=== PATIENT | male | born 1950 | race Caucasian/White ===

== ENCOUNTER 2017-03-26 19:16 | Inpatient (IN) | payer MEDICARE ==
[2017-03-26] MEDS ORDERED: Ondansetron INJ* 2 MG/ML VIAL IV ONE (20:23)
[2017-03-26] MEDS ORDERED: NS 0.9% 1000 ML* 1,000 ML IV ONE (20:24)
[2017-03-26] MEDS ORDERED: Morphine INJ* 2 MG/ML 1 ML SYRINGE IV ONE (20:24)
--- NOTE | 2017-03-26 20:27 | ED ---
Sami Kwon Billy, scribed for Marla Escobar MD on 03/26/17 at 2019 . Lower Extremity - HPI Summary HPI Summary: Patient is a 66 year-old male coming to [facility] with his niece for evaluation of right knee pain after a fall from the toilet today. He states that at 1300 today , the toilet broke off from the wall. Pt was unable to get up off the floor. Pt eventiually crawled to another room and called his niece at 5pm for help. They were unable to get him up, so called 911. He denies any head injury, chest pain , abdominal pain, or N/V/D. He does feel very tired here in the ED and is hungry. Pt denies striking head. no LOC. Denies hip pain. Pt lives alone and walks with a walker - pt with chronic b/l LE edema. 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 No anticoagulants. The patient takes his medications as prescribed. Last tetanus booster unknown. All medications were reviewed this visit. - History of Current Complaint Chief Complaint: EDExtremityLower Stated Complaint: RIGHT KNEE PAIN Time Seen by Provider: 03/26/17 20:08 Hx Obtained From: Patient Mechanism Of Injury: Fall From Height Of: - toilet Onset of Pain: Immediate, Hours Severity Initially: Moderate Severity Currently: Moderate Pain Intensity: 6 Pain Scale Used: 0-10 Numeric Timing: Constant Location: Is Discrete @ - right knee Character Of Pain: Stiffness Associated Signs And Symptoms: Positive: Bruising, Weakness. Negative: Syncope , Abdominal Pain Aggravating Factor(s): Movement, Weight Bearing Able to Bear Weight: No - Allergies/Home Medications Allergies/Adverse Reactions: Allergies Allergy/AdvReac Type Severity Reaction Status Date / Time No Known Allergies Allergy Verified 03/26/17 19:40 Home Medications: Home Medications Chlorthalidone TAB* [Hygroton TAB*] 25 mg PO DAILY 03/26/17 [History Confirmed 03/26/17] Dabigatran CAP(NF) [Pradaxa CAP(NF)] 150 mg PO BID 03/26/17 [History Confirmed 03/26/17] PMH/Surg Hx/FS Hx/Imm Hx Previously Healthy: No Endocrine/Hematology History: Denies: Hx Anticoagulant Therapy Cardiovascular History: Reports: Hx Atrial Fibrillation, Hx Hypertension - NOTED ON THIS VISIT, PT DENIES HX, Hx Valvular Heart Disease - mild mitral insufficiency, dilated (right) atrium trace tricuspid insuffici Denies: Hx Pacemaker/ICD Respiratory History: Reports: Other Respiratory Problems/Disorders - smoker Musculoskeletal History: Reports: Hx Back Problems - 1981 spinal cord injury ( [place]) Denies: Hx Rheumatoid Arthritis, Hx Osteoporosis Sensory History: Reports: Hx Hearing Problem - [place] Denies: Hx Hearing Aid Neurological History: Reports: Hx Spinal Cord Injury - "PT STATES "FROM LIFTING ", Other Neuro Impairments/Disorders - S Psychiatric History: Denies: Hx Panic Disorder - Surgical History Surgery Procedure, Year, and Place: CERVICAL FUSION IN THE Hx Anesthesia Reactions: No Infectious Disease History: No Infectious Disease History: Denies: Traveled Outside the [place] in Last 30 Days - Family History Known Family History: Positive: Hypertension - Social History Occupation: Unemployed Lives: Alone Alcohol Use: None Substance Use Type: Reports: None Smoking Status (MU): Current Every Day Smoker - 1 PPD Review of Systems Positive: Fatigue Eyes: Negative ENT: Negative Cardiovascular: Negative Negative: Chest Pain Respiratory: Negative Gastrointestinal: Negative Negative: Abdominal Pain, Vomiting, Diarrhea, Nausea Genitourinary: Negative Positive: Arthralgia Skin: Negative Neurological: Negative Psychological: Normal All Other Systems Reviewed And Are Negative: Yes Physical Exam Triage Information Reviewed: Yes Vital Signs On Initial Exam: Initial Vitals Temp Pulse Resp BP Pulse Ox 97.3 F 84 18 74/58 97 03/26/17 19:45 03/26/17 19:45 03/26/17 19:45 03/26/17 19:45 03/26/17 19:45 Vital Signs Reviewed: Yes Appearance: Positive: Well-Nourished, Pain Distress - with movement of right knee Skin: Positive: Other - Pt with ecchymosis left posterior shoulder, scapula; pt with ecchymosis left lower abd/prox hip, Pt with venous stasis changes bl LE; pt with multiple abrasions b.l hands, feet - no edema, erythema, ecchymosis right knee Head/Face: Positive: Normal Head/Face Inspection Eyes: Positive: Normal, EOMI, MANNY ENT: Positive: Pharynx normal, TMs normal Dental: Positive: Gross Decay/Caries @ Neck: Positive: Supple, Nontender, No Lymphadenopathy Respiratory/Lung Sounds: Positive: Clear to Auscultation, Breath Sounds Present - sounds distant, irregular, no murmur 2+ edema b/l LE to knees venous stasis changes b/l LE Cardiovascular: Positive: IRR, Leg Edema Left, Leg Edema Right Abdomen Description: Positive: Nontender, No Organomegaly, Soft Bowel Sounds: Positive: Present Musculoskeletal: Positive: Other - + SLE b/l with pain in right knee + passive SLE, flex/ext with discomfort right lateral knee + externally rotate hip with pain lateral aspect Neurological: Positive: Normal, Alert, Oriented to Person Place, Time Psychiatric: Positive: Normal AVPU Assessment: Alert - Stephen Coma Scale Best Eye Response: 4 - Spontaneous Best Motor Response: 6 - Obeys Commands Best Verbal Response: 5 - Oriented Diagnostics - Vital Signs Vital Signs Temp Pulse Resp BP Pulse Ox 03/26/17 19:45 97.3 F 84 18 74/58 97 - Laboratory Result Diagrams: 03/27/17 05:08 03/27/17 05:08 Lab Statement: Any lab studies that have been ordered have been reviewed, and results considered in the medical decision making process. - Radiology Knee XR Radiology Interpretation Completed By: Radiologist - 1. OSTEOPENIA. 2. OSTEOARTHRITIS. 3. NO ACUTE OSSEOUS INJURY. THE DEGREE OF OSTEOPENIA MAY MAKE A NONDISPLACED FRACTURE RADIOGRAPHICALLY OCCULT. IF SYMPTOMS PERSIST, RECOMMEND REPEAT IMAGING. Hip/Pelvis XR Radiology Interpretation Completed By: Radiologist - 1. OSTEOPENIA. 2. ADVANCED OSTEOARTHRITIS. 3. NO RADIOGRAPHIC EVIDENCE FOR HIP FRACTURE. X- RAYS MAY BE NEGATIVE WITH NONDISPLACED HIP FRACTURE, IF THERE IS PERSISTENT CLINICAL CONCERN, RECOMMEND CONSIDERATION OF MRI. IN THE SETTING OF CONTRAINDICATION TO MRI OR LIMITATION IN EMERGENT ACCESS TO MRI, CT WOULD BE SUGGESTED. Femur XR Radiology Interpretation Completed By: Radiologist - 1. OSTEOPENIA. 2. ADVANCED OSTEOARTHRITIS OF THE RIGHT HIP. OSTEOARTHRITIS OF THE RIGHT KNEE. 3. NO ACUTE OSSEOUS INJURY. THE DEGREE OF OSTEOPENIA MAY MAKE A NONDISPLACED FRACTURE RADIOGRAPHICALLY OCCULT. IF SYMPTOMS PERSIST, RECOMMEND REPEAT IMAGING. CXR Radiology Interpretation Completed By: Radiologist - CARDIOMEGALY - EKG 2123 EKG Interpretation: afib 88 bpm, T-wave flattening, no acute changes Re-Evaluation - Re-Evaluation First Eval Re-Evaluation Time: 21:31 Change: Unchanged Comment: Labs and imaging reviewed with the patient. elevated trop. Pt states "not allowed to take ASA" unclear why. Pt reports pain improved with Morphine Second Eval Re-Evaluation Time: 21:50 Comment: Plan for admission reviewed with the patient. He is agreeable. Lower Extremity Course/Dx - Course Assessment/Plan: Pt presents by EMS s/p falling to floor when toilet broke at 1pm. Pt on floor x 5 hours. Pt c/opain in knee only. Pt with ecchymosis to left shoulder and right knee Pt with venous stasis changes and multiple abrasions. Pt unsure last tdap. Will check labs, imaging, ekg. IVF. analgesia. diff: fx , contusion, sprain, rhabdo, cellulitis, dehydration. anticipate will require admission - Diagnoses Provider Diagnoses: Rhabdomyolysis, Elevated troponin, Leukocytosis - Physician Notifications Discussed Care of Patient With: Dr. Mccabe (hospitalist) at 2140: accepts admission. Instructed by Provider To: Admit As Inpatient Discharge - Discharge Plan Condition: Stable Disposition: ADMITTED TO [facility] documentation as recorded by the Sami alegria Billy accurately reflects the service I personally performed and the decisions made by me, Marla Escobar MD.
[2017-03-26 20:37] LABS: Hematocrit 49 % (42-52); Hemoglobin 15.6 g/dl (14.0-18.0); Mean Corpuscular HGB Conc 32 g/dl (31-36); Mean Corpuscular Hemoglobin 28 pg (27-31); Mean Corpuscular Volume 87 fL (80-94); Mean Platelet Volume 9 um3 (7.4-10.4); Red Blood Count 5.61 10^6/ul (4.0-5.4); Red Cell Distribution Width 15 % (10.5-15); White Blood Count 16.8 10^3/ul (3.5-10.8)
[2017-03-26 20:51] LABS: Albumin 3.7 g/dL (3.2-5.2); BUN/Creatinine Ratio 18.3 (8-20); Calcium 9.6 mg/dL (8.6-10.3); EGFR African American 52.8 (>60); EGFR Non-African American 41.1 (>60); Globulin 3.6 g/dL (2-4); Magnesium 1.9 mg/dL (1.9-2.7); Total Bilirubin 0.8 mg/dL (0.2-1.0); Total Protein 7.3 g/dL (6.4-8.9)
[2017-03-26 20:55] LABS: Troponin I 1.17 ng/mL (<0.04)
--- NOTE | 2017-03-26 21:18 | RAD ---
HISTORY: Fall, pain COMPARISONS: October 08, 2012 VIEWS: 2: Frontal and lateral views of the chest. FINDINGS: CARDIOMEDIASTINAL SILHOUETTE: The cardiac silhouette is enlarged. The cardiomediastinal silhouette is otherwise normal. JANES: The janes are normal. PLEURA: The costophrenic angles are sharp. No pleural abnormalities are noted. LUNG PARENCHYMA: The lungs are clear. ABDOMEN: The upper abdomen is clear. There is no subphrenic gas. BONES AND SOFT TISSUES: No bone or soft tissue abnormalities are noted. OTHER: None. IMPRESSION: CARDIOMEGALY
--- NOTE | 2017-03-26 21:19 | RAD ---
HISTORY: Fall, pain, right knee pain. COMPARISONS: None VIEWS: 5, Frontal and lateral views of the right femur FINDINGS: BONE DENSITY: There is diffuse osteopenia. BONES: There is no displaced fracture. JOINTS: There is advanced osteoarthritis of the right hip. There is mild osteoarthritis of the right knee ALIGNMENT: There is no dislocation. SOFT TISSUES: Unremarkable. OTHER FINDINGS: None. IMPRESSION: 1. OSTEOPENIA. 2. ADVANCED OSTEOARTHRITIS OF THE RIGHT HIP. OSTEOARTHRITIS OF THE RIGHT KNEE. 3. NO ACUTE OSSEOUS INJURY. THE DEGREE OF OSTEOPENIA MAY MAKE A NONDISPLACED FRACTURE RADIOGRAPHICALLY OCCULT. IF SYMPTOMS PERSIST, RECOMMEND REPEAT IMAGING.
--- NOTE | 2017-03-26 21:21 | RAD ---
HISTORY: Right knee pain, fall COMPARISONS: None VIEWS: 4, Frontal view of the pelvis with frontal and frog-leg views of the right hip FINDINGS: BONE DENSITY: There is diffuse osteopenia. BONES: There is no displaced fracture. JOINTS: There is advanced osteoarthritis of the right hip with apparent ankylosis across the joint space. There is advanced osteoarthritis of the left hip. ALIGNMENT: There is no dislocation. SOFT TISSUES: Unremarkable. OTHER FINDINGS: Degenerative changes are noted of the spine IMPRESSION: 1. OSTEOPENIA. 2. ADVANCED OSTEOARTHRITIS. 3. NO RADIOGRAPHIC EVIDENCE FOR HIP FRACTURE. X-RAYS MAY BE NEGATIVE WITH NONDISPLACED HIP FRACTURE, IF THERE IS PERSISTENT CLINICAL CONCERN, RECOMMEND CONSIDERATION OF MRI. IN THE SETTING OF CONTRAINDICATION TO MRI OR LIMITATION IN EMERGENT ACCESS TO MRI, CT WOULD BE SUGGESTED.
--- NOTE | 2017-03-26 21:21 | RAD ---
HISTORY: Fall, right knee pain COMPARISONS: September 10, 2012 VIEWS: 3, Frontal, lateral, and oblique views of the right knee FINDINGS: BONE DENSITY: There is diffuse osteopenia. BONES: There is no displaced fracture. JOINTS: There is moderate osteoarthritis of the right knee. There is no suprapatellar joint effusion or lipohemarthrosis. ALIGNMENT: There is no dislocation. SOFT TISSUES: Unremarkable. OTHER FINDINGS: None. IMPRESSION: 1. OSTEOPENIA. 2. OSTEOARTHRITIS. 3. NO ACUTE OSSEOUS INJURY. THE DEGREE OF OSTEOPENIA MAY MAKE A NONDISPLACED FRACTURE RADIOGRAPHICALLY OCCULT. IF SYMPTOMS PERSIST, RECOMMEND REPEAT IMAGING.
[2017-03-26] MEDS ORDERED: Senna TAB PO PRN (22:09)
[2017-03-26] MEDS ORDERED: Magnesium Hydroxide LIQ* 30 ML UDC PO PRN (22:09)
[2017-03-26] MEDS ORDERED: Al Hydrox/Mg Hydrox/Simet LIQ* 30 ML UDC PO PRN (22:09)
[2017-03-26] MEDS ORDERED: Docusate CAP* 100 MG PO PRN (22:09)
[2017-03-26] MEDS ORDERED: Ondansetron INJ* 2 MG/ML VIAL IV PRN (22:09)
[2017-03-26] MEDS ORDERED: Aspirin TAB* 325 MG PO ONE ×2 (22:19→22:20)
[2017-03-26] MEDS ORDERED: Mouth Piece, Nicotine* 1 EACH CARTRIDGE INH PRN (22:40)
[2017-03-26] MEDS ORDERED: Nicotine Inhaler* 10 MG AMP INH PRN (22:40)
[2017-03-26] MEDS: CMCS Dabigatran CAP(NF) 150 MG CAP PO SCH (23:56)
--- NOTE | 2017-03-27 01:23 | HP ---
HISTORY AND PHYSICAL: DATE OF ADMISSION: 03/26/17 TIME OF EVALUATION: 2199. PRIMARY CARE PHYSICIAN: Ino Loomis MD CHIEF COMPLAINT: Fall with right knee pain. HISTORY OF PRESENT ILLNESS: This is a 66-year-old male with past medical history of congestive heart failure with reduced EF, atrial fibrillation, morbid obesity with chronic venous stasis and wounds, who presents to the emergency room after falling and inability to ambulate. The patient states around noon, his commode broke and he fell and whole toilet came off the wall. He was unable to get up for about 5 hours. He did climb to the living room, was able to call his niece, then called the EMS, the EMS arrived. He refused to go to the hospital. They did put him up on the couch when the niece showed up. She tried to get him up and walk him, he could not ambulate due to significant right knee pain and she called EMS to be brought back here. The patient states he was in his usual state of health. He denies any chest pain or shortness of breath. He is normally independent of his ADL. He ambulates with a walker. He denies any loss of consciousness or head injury. He has not been declining in his health. He does see his primary care physician once a year, in the summer, Dr. Loomis, for refills. 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 He was getting evaluated for obstructive sleep apnea, but it is unclear what happened with getting full evaluation for this. The patient states that he has been gaining weight. He only sleeps with 1 pillow at night. Denies any orthopnea. According to him and his niece, his legs look the same as they have. There are some new abrasions, otherwise, they are at their baseline. Otherwise, remaining review of systems is negative. In the emergency room, the patient had labs, imaging, was given morphine 2 mg, Zofran, and a liter of normal saline, was referred to the hospitalist service for further evaluation. PAST MEDICAL HISTORY: 1. History of atrial fibrillation 2. Hypertension. 3. Chronic wound with chronic venous stasis. 4. Osteoarthritis. 5. Congestive heart failure with reduced EF 25% to 30% with LV clot, this was back in 2011. 6. Obstructive sleep apnea, not on any management for this. 7. Admission in 2011 for CVA. 8. Morbid obesity. MEDICATIONS: 1. Chlorthalidone 12.5 mg p.o. daily. 2. Pradaxa 150 mg p.o. b.i.d. 3. Lisinopril 20 mg daily. 4. Coreg 6.25 mg daily. 5. Tylenol as needed. ALLERGIES: No known drug allergies. FAMILY HISTORY: Reviewed and noncontributory. SOCIAL HISTORY: The patient lives alone. He ambulates with a walker. He is still smoking a pack per day for the past 40 years. No alcohol use. He is unemployed, on disability. He does not drive. His niece, Dafne Ruffin, cell phone #, is his healthcare proxy. His code status is full code. REVIEW OF SYSTEMS: As mentioned in the HPI. PHYSICAL EXAMINATION GENERAL: Morbidly obese, no acute distress, with his niece at the bedside. VITAL SIGNS: Temp 97.3, pulse rate 95, respiratory rate 18, oxygen saturation 97 % on room air, blood pressure 135/90. HEENT: Pupils are equal and reactive. Head: Normocephalic. Oropharynx: Mucous membranes are dry. NECK: Supple. No lymphadenopathy. RESPIRATORY: Diminished breath sounds, bibasilar crackles. No increased work of breathing. CARDIAC: Irregularly irregular rate and rhythm. Soft systolic murmur heard throughout. ABDOMEN: Morbidly obese. EXTREMITIES: The patient with excoriated lesions on his lower extremities with chronic hemosiderin venous stasis with hyperpigmented, thickened skin with distant pulses. No areas of purulent drainage or significant wound findings for concern of secondary infection. NEUROLOGIC: He is alert and oriented x3. No focal neurologic deficits. MUSCULOSKELETAL: The patient with pain with range of motion of his right knee. No bilateral hip pain. DIAGNOSTIC STUDIES/LAB DATA: White count , hemoglobin 15.6, hematocrit 49 , platelets 300. INR is 1.20. Sodium is 127, potassium 5, chloride 95, bicarb 24, BUN 31, creatinine 1.69, glucose 103. Total CK is 631. Troponin 1.17. BNP 573. Radiographic data: EKG shows atrial fibrillation with no significant ST changes. Knee x-ray: Shows osteopenia, osteoarthritis, no acute osseous injury. The degree of osteopenia may make it a nondisplaced fracture; radiographically, occult. If symptoms persist, recommend repeat imaging. Hip and pelvis x-ray: Osteopenia, advanced arthritis, no evidence for hip x-ray , as x-ray may be negative with nondisplaced hip fracture. If there is persistent clinical concern, recommend consideration of an MRI in the setting of contraindication to MRI. Femur x-ray: Osteopenia, advanced osteoarthritis of the right hip, has osteoarthritis of the right knee, no acute osseous injury. Chest x-ray: Cardiomegaly. ASSESSMENT AND PLAN: This is a 66-year-old male with past medical history of atrial fibrillation, congestive heart failure with chronic lower extremity venous stasis, presents to the emergency room after having a fall with right knee pain, inability to ambulate, noted to have acute kidney injury with an elevated troponin. 1. Fall. Assessment: Appears to be mechanical fall due to the patient's toilet breaking. He does have a lot of right knee pain. I will go ahead and order a CT of his knee to look for an occult fracture at this time before PT evaluates, as he does live alone and is independent of his ADLs and does ambulate with a walker. 2. Acute kidney injury. Assessment: As a result of this fall, it could be mild rhabdomyolysis contributing to his acute kidney injury, it is unclear if this has progressed since his labs over a year ago. I will hold his lisinopril and chlorthalidone for now and repeat his labs in the morning in addition to his CK. 3. Elevated troponin. Assessment: The patient is completely asymptomatic, has been otherwise fine. I suspect this is in the setting of a demand ischemia from being on the floor for several hours with his rhabdo and his acute kidney injury, although there is concern for lack of followup for this patient. I will give him a full-dose aspirin now. Continue on his Pradaxa and baby aspirin and order an echo, keep him n.p.o., and trend his troponins, get a lipid panel as well and would recommend Cardiology evaluating him again. 4. Leukocytosis. Assessment: There is no clear source for an infection. He has abrasions on his lower extremities, but no secondary infection visualized on my exam. It could be acute phase reactant, I would monitor it, I will get a urinalysis as there is not one at this time. Follow up on that as well, but hold off on any antibiotics at this time. 5. Chronic medical problems. 6. Tobacco use: Start him on nicotine inhaler. 7. Cardiac history with a history of congestive heart failure and atrial fibrillation. I will resume his Coreg and Pradaxa as mentioned. We will hold his lisinopril and chlorthalidone and place him on a low-salt diet, daily weights, and monitor his I's and O's. 8. DVT prophylaxis. The patient scores high risk. He is on Pradaxa. 9. Code status. Full code. 10. FEN: Place him on a heart-healthy diet, low-salt diet, n.p.o. after midnight in case his troponins continue to go up and he needs further evaluation for this at this time. PATIENT TIME: Greater than 90 minutes was spent doing the history and physical , more than half the time spent in direct patient contact. CC: Ino Loomis MD* [id number]/CPS #: [id number] MONI
[2017-03-27 05:43] LABS: Hematocrit 44 % (42-52); Hemoglobin 14.1 g/dl (14.0-18.0); Mean Corpuscular HGB Conc 32 g/dl (31-36); Mean Corpuscular Hemoglobin 28 pg (27-31); Mean Corpuscular Volume 88 fL (80-94); Mean Platelet Volume 9 um3 (7.4-10.4); Red Blood Count 4.99 10^6/ul (4.0-5.4); Red Cell Distribution Width 15 % (10.5-15); White Blood Count 13.2 10^3/ul (3.5-10.8)
[2017-03-27 05:48] LABS: Urine Bilirubin Negative (Negative); Urine Glucose Negative (Negative); Urine Nitrite Negative (Negative)
[2017-03-27 05:57] LABS: BUN/Creatinine Ratio 23.4 (8-20); EGFR African American 67.3 (>60); EGFR Non-African American 52.3 (>60); HDL Cholesterol 29.2 mg/dL; Potassium 3.8 mmol/L (3.5-5.0)
[2017-03-27 06:14] LABS: Troponin I 1.19 ng/mL (<0.04)
[2017-03-27] MEDS ORDERED: NS 0.9% 1000 ML* 1,000 ML IV SCH (07:00)
[2017-03-27] MEDS: Aspirin EC Low Dose* 81 MG TAB.EC PO SCH (07:35)
[2017-03-27] MEDS: CMCS Dabigatran CAP(NF) 150 MG CAP PO SCH ×2 (07:35→21:02)
--- NOTE | 2017-03-27 07:52 | RAD ---
INDICATION: Fall. Knee pain COMPARISON: Right knee March 26, 2017 TECHNIQUE: Source images were acquired in axial plane with coronal and sagittal reconstructions. FINDINGS: The bony structures are osteopenic. There is trabecular impaction involving the posterior aspect lateral tibial plateau. This is age indeterminant. There are no additional apparent focal bony findings. The joint spaces are preserved. There is no joint effusion. There is muscle wasting. IMPRESSION: TRABECULAR IMPACTION POSTERIOR ASPECT LATERAL TIBIAL PLATEAU. THE ABSENCE OF A JOINT EFFUSION SUGGESTED THIS MAY BE CHRONIC.
[2017-03-27] MEDS ORDERED: NS 0.9% 1000 ML* 1,000 ML IV ONE ×2 (08:03→11:03)
[2017-03-27] MEDS: Acetaminophen TAB* 325 MG PO PRN ×3 (08:48→21:05)
[2017-03-27] MEDS ORDERED: Carvedilol TAB* 6.25 MG PO SCH (09:00)
--- NOTE | 2017-03-27 11:16 | PN ---
Subjective Date of Service: 03/27/17 Interval History: Pt examined today at the bedside. States that he is having right knee pain. Denies chest pain and sob. States that his commode gave out last night and he was stuck. Denies abdominal pain. Denies nausea or vomiting. ROS-denies fever, denies chills, denies chest pain, denies nausea, denies vomiting, denies lightheadedness, denies loc, denies abdominal pain, denies sob , review of 11 systems completed all others negative, Objective Active Medications: Acetaminophen (Tylenol Tab*) 650 mg PO Q4H PRN PRN Reason: FEVER/PAIN Last Admin: 03/27/17 08:48 Dose: 650 mg Al Hydrox/Mg Hydrox/Simethicone (Maalox Plus*) 30 ml PO Q6H PRN PRN Reason: INDIGESTION Aspirin (Aspirin Ec Low Dose*) 81 mg PO DAILY [facility] Last Admin: 03/27/17 07:35 Dose: 81 mg Carvedilol (Coreg Tab*) 6.25 mg PO BID [facility] Last Admin: 03/27/17 08:04 Dose: Not Given Dabigatran (Pradaxa Cap(Nf)) 150 mg PO BID [facility] Last Admin: 03/27/17 07:35 Dose: 150 mg Device (Nicotine Mouth Piece*) 1 each INH .USE WITH NICOTROL PRN PRN Reason: CRAVING Docusate Sodium (Colace Cap*) 100 mg PO BID PRN PRN Reason: CONSTIPATION Sodium Chloride (Ns 0.9% 1000 Ml*) 1,000 mls @ 1,000 mls/hr IV .PER RATE ONE Stop: 03/27/17 12:02 Sodium Chloride (Ns 0.9% 1000 Ml*) 1,000 mls @ 100 mls/hr IV PER RATE [facility] Magnesium Hydroxide (Milk Of Magnesia Liq*) 30 ml PO Q4H PRN PRN Reason: CONSTIPATION Nicotine (Nicotine Inhaler*) 10 mg INH Q2H PRN PRN Reason: CRAVING Ondansetron HCl (Zofran Inj*) 4 mg IV Q4H PRN PRN Reason: NAUSEA/VOMITING Oxycodone/Acetaminophen (Percocet 5/325 Tab*) 1 tab PO Q4H PRN PRN Reason: Pain Senna (Senokot Tab*) 1 tab PO BID PRN PRN Reason: CONSTIPATION Vital Signs 03/26/17 03/26/17 03/26/17 22:30 22:58 23:00 Temperature 98.1 F Pulse Rate 96 57 Respiratory 18 Rate Blood Pressure 123/101 119/79 (mmHg) O2 Sat by Pulse 96 83 Oximetry 03/26/17 03/26/17 03/27/17 23:19 23:23 03:20 Temperature 98.5 F Pulse Rate 88 92 96 Respiratory 20 Rate Blood Pressure 157/137 112/91 (mmHg) O2 Sat by Pulse 99 98 99 Oximetry 03/27/17 03/27/17 03/27/17 07:33 07:42 08:00 Temperature 97.7 F Pulse Rate 103 Respiratory 18 20 Rate Blood Pressure 67/41 82/50 (mmHg) O2 Sat by Pulse 98 Oximetry 03/27/17 09:37 Temperature Pulse Rate Respiratory Rate Blood Pressure 86/62 (mmHg) O2 Sat by Pulse Oximetry Oxygen Devices in Use Now: None Appearance: 66 y/o male patient NAD, sitting in bed, Eyes: No Scleral Icterus, PERRLA Ears/Nose/Mouth/Throat: - - poor dentition Neck: NL Appearance and Movements; NL JVP Respiratory: Symmetrical Chest Expansion and Respiratory Effort, Clear to Auscultation Cardiovascular: NL Sounds; No Murmurs; No JVD Abdominal: NL Sounds; No Tenderness; No Distention Lymphatic: - - BLE edema, Extremities: - - BLE Edema Skin: - - venous stasis ulcers noted to BLE, abrasion and eccymohsis, to LLQ of abd, Neurological: Alert and Oriented x 3 Lines/Tubes/Other Access: Clean, Dry and Intact Peripheral IV Result Diagrams: 03/27/17 05:08 03/27/17 05:08 Assess/Plan/Problems-Billing Assessment: 66 y/o male patient [place] [facility] [place] complaints of mechanical fall from commode, - Patient Problems (1) Afib Current Visit: Yes Status: Acute Priority: High Comment: rate controlled currently, plan to continue pradaxa and coreg when able (2) Rhabdomyolysis Current Visit: Yes Status: Acute Priority: High Comment: Mild CK 1100 one liter bolus given at 900am, will repeat bmp at 1800 and follow ck q 6hr, suspect r/t fall, (3) Elevated troponin Current Visit: Yes Status: Acute Priority: High Comment: etiology unclear no cardiac symptoms, trend for now, check echo, depending on echo results may consider cards consult, ? if demand ischemia from fall (4) Tibial plateau fracture Current Visit: Yes Status: Acute Priority: High Comment: ? if acute or chronic given imaging, consult placed to ortho, bedrest until weight bearing status addressed but ortho (5) Chronic wound of extremity Current Visit: Yes Status: Acute Priority: High Comment: BLE wounds will place consult to wound care nurse, for now telfa dressing with lower ext wraps (6) Venous stasis Current Visit: Yes Status: Acute Priority: High Comment: wrapped lower exts when able, elvated legs as well, (7) MARINO (obstructive sleep apnea) Current Visit: Yes Status: Acute Priority: High Comment: patient doesnt wear cpap will need follow up with pcp (8) Cardiomyopathy Current Visit: Yes Status: Acute Priority: High Comment: repeat echo pending last ef 25-30 percent, no signs of failure currently, continue coreg when able, (9) ERIS (acute kidney injury) Current Visit: Yes Status: Acute Priority: High Comment: suspect r/t rhabdo, will check fena, hydrate and trend BMP, avoid nephrotoxic agents, (10) DVT prophylaxis Current Visit: Yes Status: Acute Priority: High Comment: pradaxa (11) FEN Current Visit: Yes Status: Acute Priority: High Comment: Heart healthy diet (12) Full code status Current Visit: Yes Status: Acute Priority: High (13) Leukocytosis Current Visit: Yes Status: Acute Priority: High Comment: suspect r/t to fall and leukamoid reaction, plan to trend cx sent neg thus far no abx, (14) Hypotension Current Visit: Yes Status: Acute Priority: High Comment: Pt asymptomatic, pt appears to be dehydrated will increase ivf and give another bolus of ivf follow closely, Status and Disposition: Most likely will need SNF given ? of acute LLE fx, await ortho consult, echo, will need several more days of inpatient care,
[2017-03-27] MEDS: NS 0.9% 1000 ML* 1,000 ML IV SCH ×2 (11:21→23:07)
[2017-03-27 12:57] LABS: Troponin I 0.63 ng/mL (<0.04)
[2017-03-27] MEDS ORDERED: Perflutren Lipid Microsphere* 3 ML VIAL ONE (13:23)
--- NOTE | 2017-03-27 17:24 | ECHO ---
Patient: RACHEL VALENCIA Rec#: [id number] : 1950 Date: 03/27/2017 Age: 66y Height: 175.26 cm / 69.0 in Weight: 152.86 kg / 336.9 lbs Sex: M BSA: 2.58 Room#: 440 Admit Date#: 03/26/2017 Type: Inpatient Referring: Jd Roberts NP Reading: Gris Medel MD Test Pilot: Mandi Rolle RDCS,RDMS CC: Ino Loomis MD Transthoracic Echocardiogram Indication: Elevated troponin BP: 86/62 HR: 80 Rhythm: A-Fib Findings History: CHF, AFIB, HTN, morbid obesity, CVA, ASHLEY clot Technical Comments: The study quality is poor. COmpleted 1400. Left Ventricle: The left ventricle is not well visualized. Unable to estimate left ventricular ejection fraction. The assessment of diastolic function is non-diagnostic. Left Atrium: The left atrium is not well visualized. Right Ventricle: The right ventricular chamber size and systolic function are within normal limits.based on subcostal view. Right Atrium: The right atrium is not well visualized. Aortic Valve: The aortic valve structure is not well visualized. There is no evidence of aortic valve thickening. There is no evidence of aortic regurgitation. There is no evidence of aortic stenosis. Mitral Valve: The mitral valve structure is not well visualized. The mitral valve leaflets do not appear thickened. There is no evidence of mitral regurgitation. There is no evidence of mitral stenosis. Tricuspid Valve: The tricuspid valve structure is not well visualized. Unable to estimate the right ventricular systolic pressure. Pulmonic Valve: The pulmonic valve structure is not well visualized. Pericardium: There is no significant pericardial effusion. Aorta: There is borderline dilatation of the ascending aorta. There is no dilatation of the aortic arch. There is no dilation of the aortic root. Pulmonary Artery: The main pulmonary artery is not well visualized. Venous: The inferior vena cava is dilated. There is an approximate 50% respiratory change in the inferior vena cava dimension. Contrast: Definity was used to optimize study. A total of 6 ml was used. Conclusions The study quality is poor, suboptimal for evaluation even views using echo contrast. The left ventricle is not well visualized, unable to estimate LV function accurately. The right ventricular chamber size and systolic function are within normal limits based on subcostal view. No obvious valve defects on gross suboptimal exam. If clinically indicated transesophogeal echo could yield an adequate exam for ventricular and valvular function. Measurements Name Value Normal Range Ao root diameter (2D) 3.3 cm (2.1 - 3.5) Ascending Ao 3.5 cm (2.1 - 3.4) Aortic arch 2.7 cm (1.8 - 3.4) Name Value Normal Range MV E-wave Vmax 0.7 m/sec - MV deceleration time 180 msec - LV lateral e' Vmax 0.1 m/sec - LV E:e' lateral ratio 7 ratio - Name Value Normal Range AV Vmax 1.1 m/sec - AV peak gradient 5 mmHg - LVOT Vmax 0.5 m/sec - LVOT peak gradient 1 mmHg - Name Value Normal Range RAP 8 mmHg - IVC diameter 2.7 cm - Name Value Normal Range PV Vmax 0.5 m/sec - PV peak gradient 0.89 mmHg -
[2017-03-27 18:23] LABS: BUN/Creatinine Ratio 26.8 (8-20); Calcium 8.5 mg/dL (8.6-10.3); EGFR African American 76.2 (>60); EGFR Non-African American 59.2 (>60); Potassium 4.4 mmol/L (3.5-5.0)
[2017-03-27] MEDS ORDERED: Carvedilol TAB* 3.125 MG PO SCH (21:00)
--- NOTE | 2017-03-27 21:06 | CONS ---
CONSULTATION NOTE: DATE OF CONSULTATION: 03/27/17 REASON FOR CONSULTATION: Right knee lateral tibial plateau fracture, chronic versus acute. HISTORY: The patient is a 66-year-old man, who lives alone and, per report, walks with a walker, who fell at home on 03/26/17, was admitted on that same day through the emergency department at [facility] for rhabdomyolysis, elevated troponin and leukocytosis, who complained of some right knee pain and had advanced imaging, a CT, demonstrating a lateral tibial plateau fracture. On the date of injury, 03/26/17, at 1 p.m., the patient was on a toilet at home. The toilet broke off from the wall and the patient fell to the floor. The patient was unable to get up off the floor. He eventually crawled to another room and called his niece 4 hours later at 5 p.m. for assistance. The niece and the patient were unable to get him up, so they called 911 and the patient was brought to [facility]'s emergency department. Per report, the patient denied any head injury, chest pain, abdominal pain, nausea, vomiting or diarrhea. He was reported as tired in the emergency department and hungry. He denied hip pain and denied any loss of consciousness or head injury with the accident. He acknowledged bilateral chronic lower extremity edema and extensive lower extremity arthritis from a farm injury several years ago. The patient complained of right knee pain in the emergency department. The patient was admitted as stated above with rhabdomyolysis, elevated troponins and leukocytosis by the hospitalist service. X-ray and CT scan of the right knee were obtained. CT demonstrated a depression-type lateral tibial plateau fracture, age indeterminate with no knee effusion or soft tissue edema noted. Orthopedic surgery consult was called to evaluate. A knee brace was applied, unlocked. Several soft tissue Kerlix dressings were placed about some areas of skin at risk of the bilateral lower legs where the patient has venous stasis skin changes. The patient was admitted to the hospitalist service and was noted to have a past medical history of CHF with reduced ejection fraction, atrial fibrillation and morbid obesity with chronic venous stasis and wounds. The hospitalist service reports that the patient is normally independent with his activities of daily living and he ambulates with a walker. The patient sees his primary care physician, Dr. Loomis, once yearly in the summer, but the patient does not follow up routinely with a workers compensation claims assistant. The patient had been getting evaluated for an obstructive sleep apnea in the past, but that was not completed. The patient has recently gained weight. The patient was admitted to the fourth floor on the telemetry unit. I interviewed the patient in his private room on the fourth floor of [facility]. 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 The patient describes some chronic hip and knee pain. He uses a walker. Unclear how often he leaves his apartment. The patient describes pain caused by a prior physical exam in the hospital and did not like that my physical exam caused pain. The patient did curse several times. The patient describes some right knee pain but that he had right knee pain prior to the fall. Unclear if the patient's right knee pain is increased over the preexisting level of right knee pain. The patient did not give a cogent answer on this topic. He denies other sites of pain currently. PAST MEDICAL HISTORY: Atrial fibrillation; hypertension; chronic venous stasis , bilateral lower legs; osteoarthritis, right hip; congestive heart failure with an EF 25% to 30% in 2012; obstructive sleep apnea; history of CVA in 2012; morbid obesity. MEDICATIONS: 1. Chlorthalidone. 2. Pradaxa. 3. Lisinopril. 4. Coreg. 5. Tylenol p.r.n. ALLERGIES: No known drug allergies. SOCIAL HISTORY: The patient lives alone. Smokes 1 pack per day x40 years. No alcohol. Unemployed, on disability. REVIEW OF SYSTEMS: The patient denies current chest pain or shortness of breath. No fever, sweats, chills. No other joint pain other than right knee pain described now. PHYSICAL EXAM: Temperature 97.8 degrees Fahrenheit, heart rate 79, blood pressure 97/56, O2 saturation 100% on room air. No acute distress. The patient is comfortable appearing in bed. The patient is morbidly obese. The patient smells strongly of urine quite pronounced. Bilateral lower legs have significant edema and chronic discoloration of the skin, red and blue. Examination of the patient's right hip reveals no soft tissue swelling or bruising. Skin is intact, so only able to get passive or active range of motion of 15 degrees of the right hip, flexion prior to the patient describing discomfort at the level of the knee. Generalized lower extremity discomfort with log roll. Knee demonstrates no soft tissue swelling or bruising. No clear effusion right knee. Tenderness to palpation about the lateral and medial knee as well as anterior. Passive and active range of motion were 5-30 degrees of flexion. Pain with terminal flexion and extension. Neurovascularly intact distally with the patient having good strength of ankle dorsiflexion and plantar flexion. No clear ecchymosis along the entirety of the right lower extremity. No calf tenderness to palpation. IMAGING: X-rays, 4 views of the right knee obtained on 09/10/12 were reviewed. They demonstrate some spurring of the medial aspect of the lateral femoral condyle on the tibial spines, but otherwise no significant joint space narrowing and no other additional degenerative changes. There appears to be depression in the lateral tibial plateau, consistent with that seen on a more recent x-ray. I also reviewed x-rays from 03/26/17. These are 3 views without a sunrise view , nonweightbearing of the right knee, which shows at least mild joint space narrowing tricompartmentally but without significant osteophytosis. There is a similarly appearing depression about the lateral tibial plateau to that seen in 2012. I reviewed CT scan of right knee from 03/26/17. It demonstrates a tibial plateau fracture, depression of the posterior aspect of the lateral tibial plateau. I measured 2-3 mm of depression. No joint effusion or soft tissue swelling appreciated. Osteopenia present. Appreciated best in sagittal slices. Four views of the right hip were obtained on 03/26/17 and were also reviewed. These demonstrate significant osteoarthritis at the right hip joint. There is exuberant bone calcium deposition throughout the vicinity of the right hip and what appears to be an auto-fusion of the right hip joint. ASSESSMENT: 1. Right knee lateral tibial plateau fracture, depression type, minimally displaced, chronic versus acute. 2. Right knee contusion. 3. Multiple medical problems, status-post past CVA, multiple social problems. PLAN: 1. The patient has right knee pain currently, although speaking to him today is not at all clear to me that the right knee pain is increased from his baseline level prior to the fall. 2. Looking at the patient's x-rays from 2012 and yesterday, it is more likely that this tibial plateau fracture is chronic, old, but we should treat him as if it were acute just in case. 3. The patient had a knee brace on in bed that was poorly or not even fitted at all and was sliding down his leg. It is much more likely that the brace will cause skin erosion than it will stabilize the knee in any way. Therefore, I recommend no knee brace. 4. Instead of the knee brace, I recommend that the patient use a right knee knee immobilizer, as needed, when he is out of bed and weight bears. If he has any knee discomfort whatsoever with ambulation, he should use a knee immobilizer. He does not need to be in the knee mobilizer when in bed. 5. When the patient is more cooperative and less painful, he could have physical therapy do some range of motion work of the right knee. For now, physical therapy should see the patient and just concentrate on getting him out of bed, weightbearing as tolerated, activity as tolerated. The more mobile the patient is, the less likely he is to suffer from blood clots, pressure ulcers, pneumonia and other medical problems. 6. I recommend anticoagulation while the patient has decreased mobility per medicine service, heparin subcutaneous t.i.d., or otherwise. 7. If the patient continues to have knee pain, he can follow up with me in the office at [facility] 4 weeks from now. 8. Should the patient become more cooperative with an exam and describes pain in some place of his body other than the right knee, feel comfortable reconsulting Orthopedics. 9. I telephoned the patient's niece to try to get a better history on this patient's mobility and right lower extremity pain level. No additional insight was garnered. [id number]/[facility] #: [id number] MONI
[2017-03-28 01:56] LABS: Urine Bacteria 1+ (Absent); Urine Bilirubin Negative (Negative); Urine Glucose Negative (Negative); Urine Nitrite Negative (Negative)
--- NOTE | 2017-03-28 04:09 | PN ---
Progress Note - Progress Note Note: paged for pauses on tele and jaren down to 30's. BP 120's. Patient asymptomatic. Will d/c his coreg.
[2017-03-28] MEDS: Acetaminophen TAB* 325 MG PO PRN (04:49)
[2017-03-28 05:03] LABS: Hematocrit 40 % (42-52); Hemoglobin 12.7 g/dl (14.0-18.0); Mean Corpuscular HGB Conc 32 g/dl (31-36); Mean Corpuscular Hemoglobin 28 pg (27-31); Mean Corpuscular Volume 87 fL (80-94); Mean Platelet Volume 9 um3 (7.4-10.4); Red Blood Count 4.56 10^6/ul (4.0-5.4); Red Cell Distribution Width 14 % (10.5-15)
[2017-03-28 05:19] LABS: BUN/Creatinine Ratio 25.5 (8-20); Calcium 8.7 mg/dL (8.6-10.3); EGFR African American 94.6 (>60); EGFR Non-African American 73.5 (>60); Potassium 4.3 mmol/L (3.5-5.0)
--- NOTE | 2017-03-28 07:32 | RAD ---
INDICATION: Trauma, fall. COMPARISON: Comparison is made with a prior chest x-ray study from March 26, 2017. TECHNIQUE: A portable view of the chest was obtained. FINDINGS: The heart appears mildly prominent for this portable exam and unchanged from the prior exam. The lungs are underinflated. There is mild prominence of the interstitial markings which are unchanged. No focal infiltrate or pleural effusion is seen. IMPRESSION: NO EVIDENCE FOR ACUTE FINDING.
[2017-03-28] MEDS: Aspirin EC Low Dose* 81 MG TAB.EC PO SCH (08:33)
[2017-03-28] MEDS: CMCS Dabigatran CAP(NF) 150 MG CAP PO SCH ×2 (08:33→21:23)
[2017-03-28] MEDS: NS 0.9% 1000 ML* 1,000 ML IV SCH (14:29)
--- NOTE | 2017-03-28 15:58 | PN ---
Subjective Date of Service: 03/28/17 Interval History: Pt is feeling ok. He starts yelling at me when I mention the physical therapy evaluation. He states he thinks he did well going between the bed and chair. He has not walked further than to a commode however. Objective Active Medications: Acetaminophen (Tylenol Tab*) 650 mg PO Q4H PRN PRN Reason: FEVER/PAIN Last Admin: 03/28/17 04:49 Dose: 650 mg Al Hydrox/Mg Hydrox/Simethicone (Maalox Plus*) 30 ml PO Q6H PRN PRN Reason: INDIGESTION Aspirin (Aspirin Ec Low Dose*) 81 mg PO DAILY [facility] Last Admin: 03/28/17 08:33 Dose: 81 mg Dabigatran (Pradaxa Cap(Nf)) 150 mg PO BID [facility] Last Admin: 03/28/17 08:33 Dose: 150 mg Device (Nicotine Mouth Piece*) 1 each INH .USE WITH NICOTROL PRN PRN Reason: CRAVING Docusate Sodium (Colace Cap*) 100 mg PO BID PRN PRN Reason: CONSTIPATION Sodium Chloride (Ns 0.9% 1000 Ml*) 1,000 mls @ 100 mls/hr IV PER RATE [facility] Last Admin: 03/28/17 14:29 Dose: 100 mls/hr Magnesium Hydroxide (Milk Of Magnesia Liq*) 30 ml PO Q4H PRN PRN Reason: CONSTIPATION Nicotine (Nicotine Inhaler*) 10 mg INH Q2H PRN PRN Reason: CRAVING Ondansetron HCl (Zofran Inj*) 4 mg IV Q4H PRN PRN Reason: NAUSEA/VOMITING Oxycodone/Acetaminophen (Percocet 5/325 Tab*) 1 tab PO Q4H PRN PRN Reason: Pain Senna (Senokot Tab*) 1 tab PO BID PRN PRN Reason: CONSTIPATION Vital Signs 03/27/17 03/27/17 03/27/17 15:57 19:23 20:00 Temperature 97.8 F 98.5 F Pulse Rate 79 92 Respiratory 20 22 22 Rate Blood Pressure 97/56 97/62 (mmHg) O2 Sat by Pulse 100 97 Oximetry 03/28/17 03/28/17 03/28/17 00:25 03:59 08:00 Temperature 98.2 F 98.0 F Pulse Rate 98 87 Respiratory 20 24 16 Rate Blood Pressure 97/63 98/60 (mmHg) O2 Sat by Pulse 97 99 Oximetry 03/28/17 03/28/17 11:15 11:54 Temperature 97.9 F 97.9 F Pulse Rate 97 83 Respiratory 22 24 Rate Blood Pressure 97/64 113/71 (mmHg) O2 Sat by Pulse 100 100 Oximetry Oxygen Devices in Use Now: None Appearance: Middle aged morbidly obese male sitting up in bed, NAD Eyes: No Scleral Icterus Ears/Nose/Mouth/Throat: Mucous Membranes Moist Respiratory: Symmetrical Chest Expansion and Respiratory Effort, Clear to Auscultation - anteriorly Cardiovascular: NL Sounds; No Murmurs; No JVD, RRR, - - marked LE edema Abdominal: NL Sounds; No Tenderness; No Distention Extremities: No Clubbing, Cyanosis Skin: No Nodules or Sclerosis, - - B/L LE ulcers are currently dressed in kerlix Neurological: Alert and Oriented x 3, - - agitated Result Diagrams: 03/28/17 04:44 03/28/17 04:44 Assess/Plan/Problems-Billing Mr Barfield is a 66 y/o male patient presents to [facility] [place] with complaints of mechanical fall from commode. - Patient Problems (1) Rhabdomyolysis Current Visit: Yes Status: Acute Code(s): M62.82 - RHABDOMYOLYSIS SNOMED Code(s): 393231070 Comment: Secondary to fall and not being able to get up off the floor. CPK has improved. No need to follow further. (2) Chronic wound of extremity Current Visit: Yes Status: Acute Code(s): KGF0634 - SNOMED Code(s): 254628353 Comment: Wound care has recommended calcium alginate on the wounds covered with kerlix and dressings changed every other day. Encourage leg elevation. (3) Hypotension Current Visit: Yes Status: Acute Priority: High Comment: BP is improving but still not stabilized. Will stop the fluids and monitor his BP. (4) Elevated troponin Current Visit: Yes Status: Acute Code(s): R74.8 - ABNORMAL LEVELS OF OTHER SERUM ENZYMES SNOMED Code(s): 337749961 Comment: Echo was not helpful as it was a very poor study. He has not had any chest pain. It is unclear why the test was checked in the ER as again the patient was asymptomatic. I would not work this up any further as an inpatient however an outpatient stress test could be considered as an outpatient when his acute issues have resolved. (5) ERIS (acute kidney injury) Current Visit: Yes Status: Acute Priority: High Code(s): N17.9 - ACUTE KIDNEY FAILURE, UNSPECIFIED SNOMED Code(s): 41072101 Comment: Improved with hydration. Follow up levels tomorrow after stopping the IVF. (6) Venous stasis Current Visit: Yes Status: Acute Priority: High Code(s): I87.8 - OTHER SPECIFIED DISORDERS OF VEINS SNOMED Code(s): 31013082 Comment: Pt has chronic venous stasis ulcers-cover with calcium alginate per wound care and change q48hr. (7) Tibial plateau fracture Current Visit: Yes Status: Acute Priority: High Code(s): S82.143A - DISPLACED BICONDYLAR FRACTURE OF UNSP TIBIA, INIT SNOMED Code(s): 924848881 Comment: Will treat as if it is acute per Dr. Byrne but it is most likely chronic based on his previous imaging with abnormal findings. Continue knee immobilizer while out of bed otherwise he does not need the immobilizer on. (8) Afib Current Visit: Yes Status: Acute Code(s): I48.91 - UNSPECIFIED ATRIAL FIBRILLATION SNOMED Code(s): 00941845 Comment: HR is controlled. Coreg has been stopped secondary to pauses overnight. Continue to monitor for now. Continue pradaxa. (9) MARINO (obstructive sleep apnea) Current Visit: Yes Status: Acute Code(s): G47.33 - OBSTRUCTIVE SLEEP APNEA ( ADULT) (PEDIATRIC) SNOMED Code(s): 77735500 Comment: Pt is non-compliant with CPAP. (10) DVT prophylaxis Current Visit: Yes Status: Acute Code(s): DOY5605 - SNOMED Code(s): 470187414 Comment: pradaxa (11) Full code status Current Visit: Yes Status: Acute Code(s): Z78.9 - OTHER SPECIFIED HEALTH STATUS SNOMED Code(s): 498140394 Status and Disposition: .
[2017-03-28] MEDS: oxyCODONE/Acetamin 5/325 MG* TAB PO PRN (21:27)
--- NOTE | 2017-03-29 03:43 | PN ---
Progress Note - Progress Note Note: Paged for 10 second pause. Patient asymptomatic. BP's soft. Coreg was d/c on 03/28. Will transfer to ICU with pacer pads in place. Keep NPO. Recommend cardiology evaluation for possible pacemaker placement. Of note was notified of 3 sec pause earlier in the evening.
[2017-03-29] MEDS ORDERED: Atropine SYRINGE* 0.1 MG/ML 10 ML SYRINGE (1 MG) ONE (05:33)
[2017-03-29 05:38] LABS: Hematocrit 39 % (42-52); Hemoglobin 12.6 g/dl (14.0-18.0); Mean Corpuscular HGB Conc 32 g/dl (31-36); Mean Corpuscular Hemoglobin 28 pg (27-31); Mean Corpuscular Volume 88 fL (80-94); Mean Platelet Volume 8 um3 (7.4-10.4); Red Blood Count 4.46 10^6/ul (4.0-5.4); Red Cell Distribution Width 15 % (10.5-15)
[2017-03-29 05:52] LABS: BUN/Creatinine Ratio 20.9 (8-20); Calcium 8.8 mg/dL (8.6-10.3); EGFR African American 115.1 (>60); EGFR Non-African American 89.5 (>60); Potassium 4.6 mmol/L (3.5-5.0)
[2017-03-29 06:30] LABS: TSH (Thyroid Stimulating Horm) 1.94 mcIU/mL (0.34-5.60)
[2017-03-29] MEDS ORDERED: DOPamine 200 MG/250 ML IVPREM* 200 MG/250 ML ML IV SCH (08:30)
[2017-03-29] MEDS: CMCS Dabigatran CAP(NF) 150 MG CAP PO SCH (09:40)
[2017-03-29] MEDS: Aspirin EC Low Dose* 81 MG TAB.EC PO SCH (09:40)
[2017-03-29] MEDS ORDERED: Midazolam* 1 MG/ML 5 ML VIAL (5 MG) ONE ×2 (09:49→15:53)
[2017-03-29] MEDS ORDERED: fentaNYL* 50 MCG/ML 2 ML VIAL (100 MCG VIAL) ONE ×2 (09:49→15:53)
[2017-03-29] MEDS ORDERED: Heparin 2 UNITS/ML IVPREMIX* 1,000 ML IV ONE (09:50)
[2017-03-29] MEDS ORDERED: Lidocaine 1% INJ* 10 MG/ML 30 ML SDV ONE (09:50)
[2017-03-29 10:43] LABS: FIO2 2
--- NOTE | 2017-03-29 10:44 | CONS ---
CC: Dr. Medel; Dr. Loomis; Dr. Johnathon Rodas. CARDIOLOGY CONSULTATION: DATE OF CONSULT: 03/29/17. REASON FOR EVALUATION: Bradycardia. HISTORY OF PRESENT ILLNESS: History was obtained from the patient and the chart and old records from September 2012. This is a 66-year-old gentleman with history of morbid obesity, atrial fibrillation, CVA, cardiomyopathy, obstructive sleep apnea, apparently hypertension. He apparently was on the toilet using a commode. The commode broke and he fell, and the toilet came off the wall. He was unable to get up for about 5 hours when he was able to crawl into the living room and called EMS. He refused to go to the hospital. They put him on his couch. When his family came home, they were unable to get him to walk due to significant knee pain and they called the EMS and was brought to the hospital. Normally he lives alone, and is able to walk around [place]. He specifically denied any chest pain or loss of consciousness. He uses a walker to get around normally. He has not seen Dr. Medel for several years. Apparently, he has been evaluated for obstructive sleep apnea, but does not seem to tolerate the mask. He had been treated with Coreg once a day because of bradycardia in the evenings. Over the course of his admission here, he was noted to have paused up to 4 seconds, and his Coreg was stopped approximately two days ago. The patient last night was noted to have multiple pauses up to 6 seconds, was transferred to the ICU, and used external pacing. He was asymptomatic. These seemed to occur mostly when he's sleeping. He specifically denies any syncope or near syncope as an outpatient, and said that people kept running into his room last night. Of note, he has a history of a TIA or stroke back in September 2012, was seen by Dr. Medel, and Dr. Martinez performed a JOEL. At that time, he had an EF of 25% to 30% and left atrial spontaneous contrast as well as possible thrombus in the left atrial appendage with mild MR. He also had an MRA which revealed acute to subacute findings in the left middle cerebral artery and had what appeared to be a small focal infarct in the distribution of the posterior inferior cerebellar artery. He had had right-sided weakness at that time. He apparently has a history of morbid obesity, hypertension, chronic venous stenosis, osteoarthritis, congestive heart failure, obstructive sleep apnea, and the CVA in 2011. PAST MEDICAL HISTORY: HTN, AFib , CVA 09/2012, Cardiomyopathy EF 25-30%, morbid obesity, Chronic venous statis changes, Sleep apnea, CHF, osteoarthritis. He denies diabetes PAST SURGICAL HISTORY: Includes: 1. Cervical spine surgery according to the patient. MEDICATIONS: His medications as outpatient include: 1. Chlorthalidone 12.5 a day. 2. Pradaxa 150 mg b.i.d. 3. Lisinopril 20 mg a day. 4. Coreg 6.25 daily. 5. Tylenol as needed. As an inpatient his medicines include: 1. Acetaminophen. 2. Aspirin. 3. Pradaxa 150 mg b.i.d., last dose last night. 4. Nicotine mouth piece. 5. Colace. 6. Dopamine. 7. Milk of magnesia. 8. Nicotine inhaler. 9. Zofran 4 mg IV q. 4. 10. Percocet one tab q. 4 p.r.n. 11. Senokot one tab b.i.d. 12. Sodium chloride, normal sinus rhythm 100 cc an hour. 13. He currently is on dopamine at 5 mcg a minute. ALLERGIES: He denies any allergies. FAMILY HISTORY: Includes mother and father who at a young age, but he is not sure why. His father had a pacer and at 57. Mother at a young age of unknown causes. He has a sister who has cardiomyopathy. SOCIAL HISTORY: He is . He has adult daughters. 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 REVIEW OF SYSTEMS: Review of systems x10 was negative except as above. PHYSICAL EXAM: He is a well-developed, well-nourished, morbidly-obese gentleman. O2 sats 95% to 97%, blood pressure 102/65, pulse 76 and irregular consistent with AFib. No significant JVD. Carotids 2+. Neck habitus difficult to evaluate, cannot exclude thyromegaly, but he does have a large neck no obvious thyroid, mass or goiter. Cardiac Exam: S1, S2 without murmurs, gallops or rubs, somewhat distant. Chest was clear. Abdomen: Obese, bowel sounds present. Nontender. Femoral pulses intact without bruits. Distal pulses diminished. He has a wrap on the left leg with chronic venous stasis changes and cyanosis. Distal pulses were diminished on the left, not palpable on the right. His right knee was in a brace. Motor strength was 5/5 bilaterally. Deep tendon reflexes were 2/5 in the upper extremities. Not evaluated in the lower extremities. He seems to be alert and oriented, but does have some dysarthric speech which he attributes to not having his teeth. DIAGNOSTIC STUDIES/LAB DATA: His labs include white count of 16.8 on March 26, down to 7 today. Hemoglobin 12.6, hematocrit 39, platelet count 216. INR 1.2. Sodium 131, potassium 4.6, BUN 18, creatinine 0.86, down from 1.37 on admission. Troponin was 1.19 on admission, down to 0.63 on 03/27/17. CK was elevated at 1113 on admission, peaked at 1188 on 03/27/17, and was down to 863 yesterday. Cholesterol 110, LDL 70, HDL 29. Chest x-ray by report revealed no acute findings. Echocardiogram from March 26 revealed poor quality film even with Definity contrast, unable to estimate LV accurately. No obvious defects. There was no evidence of mitral regurgitation. EKG from March 29 revealed atrial fibrillation with a controlled ventricular rate of 58 and nonspecific T-wave diffusely including anterior T-wave inversions , consider ischemia. He had diffuse ST-T changes on the presenting EKG on March 26, less prominent T-wave inversions anteriorly. His JOEL on 10/09/12 revealed difficult to make an estimated LV function given AFib and tachycardia, probably moderately to severely reduced EF at 25% to 30%, mild to moderate dilated left atrium with 3 to 4+ smoke in the left atrium and hazy area in the left atrial appendage, possible thrombus, mild MR, trace TR, trivial pericardial effusion without tamponade, no evidence of intracardiac shunt by color flow or microbubble study, minimal atherosclerosis of the aorta. IMPRESSION: My impression is that Mr. Barfield has a cardiomyopathy of unclear etiology as well as elevated troponins after a fall and prolonged immobility on the floor. ST elevations could be related to the rhabdo from lying on the floor, and elevated troponins could be from ischemic cardiomyopathy or demand or nonischemic cardiomyopathy. Certainly, he is at increased risk for morbidity and mortality on the basis of his obesity, LV dysfunction, and sleep apnea. The pauses reveal progression of his sick sinus syndrome and seemed to have occurred predominantly with sleep which may be related to his sleep apnea. He's a complicated case, and I have discussed the case with him and Dr. Barry and Dr. Medel and recommend the followin. We will arrange for a temporary pacemaker. The risks and benefits have been considered; and, given his recent use of anticoagulants, may have to defer that for the time being. I will discuss this with Dr. Tracey and Dr. Zuluaga. 2. We will consider implanting a right IJ to facilitate mobility for the patient until determination can be made about a permanent pacemaker. 3. If indeed his EF remains slow, he may benefit from a defibrillator 4. He is at increased risk for cardioembolic events on the history of his Afib and history of slow EF and spontaneous contrast. 5. Would continue to hold his antihypertensives and Coreg for the time being. Once his pacemaker is implanted, we can reconsider therapy for his chronic congestive heart failure. 6. Would consider evaluation for ischemic heart disease if it is not been done in the past. Would recommend weight reduction with regular moderate exercise. The prognosis is guarded. [id number]/[facility] #: [id number] ADDENDEM: Holter monitor from 2013 revealed overnight pauses up to 3-4 seconds. RUTHANN 5.5.17 MTDD
--- NOTE | 2017-03-29 10:46 | PN ---
Progress Note - Progress Note SOAP: Subjective: 66 y/o male with tibial plateau fracture, ? acute vs chronic, after fall at home. Patient seen by Dr. Byrne, continues to use immobilizer for activity. Currently in ICU due to bradycardia/ pauses of 6+ seconds, scheduled to get pacer. Patient seems confused, able to tell me about event and knee pain, but difficult to understand due to irregular speech pattern. States comfortable overall. Objective: General- Well appearing, resting comfortably, AO MSK- marked hyperpigmentation b/l LE's from mid calf down, + edema, nonpitting b /l Le's, R knee with pain/ tenderness medially at joint line and laterally extending to mid IT band. no swelling, warmth over knee noted, no ecchymosis noted. Assessment: 66 y/o male with tibial plateau fracture, likely chronic Plan: - Continue recommendations from Dr. Byrne- immobilizer with activity/ movement , able to remove at rest - F/U with Dr. Byrne within 4 weeks - Anticoagulation per cardiology - PT when cleared by Cardiology/ Hospitalists - Ortho to follow loosely Vital Signs Temp 97.5 F 03/29/17 07:21 Pulse 87 03/29/17 10:00 Resp 18 03/29/17 10:00 BP 100/51 03/29/17 10:00 Pulse Ox 100 03/29/17 10:00 Intake & Output 03/28/17 03/29/17 03/29/17 18:59 06:59 18:59 Intake Total 540 1730 Output Total 250 550 425 Balance 290 1180 -425 Weight 352 lb 11.834 oz Intake: IV Fluids 1490 NS (0.9%) 1490 Oral 540 240 Output: Urine 250 550 425 Other: # Bowel Movements 1 Estimated Stool Amount Medium Active Medications Generic Name Dose Route Start Last Admin Trade Name Freq PRN Reason Stop Dose Admin Acetaminophen 650 mg 03/26/17 22:09 03/28/17 04:49 Tylenol Tab* PO 650 mg Q4H PRN Administration FEVER/PAIN Al Hydrox/Mg Hydrox/Simethicone 30 ml 03/26/17 22:09 Maalox Plus* PO Q6H PRN INDIGESTION Aspirin 81 mg 03/27/17 09:00 03/29/17 09:40 Aspirin Ec Low Dose* PO Not Given DAILY KEN Dabigatran 150 mg 03/26/17 23:00 03/29/17 09:40 Pradaxa Cap(Nf) PO Not Given BID [facility] Device 1 each 03/26/17 22:40 Nicotine Mouth Piece* INH .USE WITH NICOTROL PRN CRAVING Docusate Sodium 100 mg 03/26/17 22:09 Colace Cap* PO BID PRN CONSTIPATION Sodium Chloride 1,000 mls @ 100 mls/hr 03/29/17 08:30 Ns 0.9% 1000 Ml* IV PER RATE [facility] Dopamine HCl 200 mg in 250 mls @ 2.4 mls/hr 03/29/17 08:30 Dopamine 200 Mg/250 Ml Ivprem* IV .Initial Rate [facility] Protocol 0.2 MCG/KG/MIN Magnesium Hydroxide 30 ml 03/26/17 22:09 Milk Of Magnesia Liq* PO Q4H PRN CONSTIPATION Nicotine 10 mg 03/26/17 22:40 Nicotine Inhaler* INH Q2H PRN CRAVING Ondansetron HCl 4 mg 03/26/17 22:09 Zofran Inj* IV Q4H PRN NAUSEA/VOMITING Oxycodone/Acetaminophen 1 tab 03/26/17 22:09 03/28/17 21:27 Percocet 5/325 Tab* PO 1 tab Q4H PRN Administration Pain Senna 1 tab 03/26/17 22:09 Senokot Tab* PO BID PRN CONSTIPATION
[2017-03-29 10:50] LABS: PCO2 Arterial 38 mmHg (35-45)
--- NOTE | 2017-03-29 11:00 | PN ---
Subjective Date of Service: 03/29/17 Interval History: Pt is feeling ok. He was not quite sure why he was moved to the ICU this AM. I reviewed with him what has been going on and why he needs to be monitored closely. He denies any CP or SOB. He has no complaints at this time. Objective Active Medications: Acetaminophen (Tylenol Tab*) 650 mg PO Q4H PRN PRN Reason: FEVER/PAIN Last Admin: 03/28/17 04:49 Dose: 650 mg Al Hydrox/Mg Hydrox/Simethicone (Maalox Plus*) 30 ml PO Q6H PRN PRN Reason: INDIGESTION Aspirin (Aspirin Ec Low Dose*) 81 mg PO DAILY KEN Last Admin: 03/29/17 09:40 Dose: Not Given Dabigatran (Pradaxa Cap(Nf)) 150 mg PO BID KEN Last Admin: 03/29/17 09:40 Dose: Not Given Device (Nicotine Mouth Piece*) 1 each INH .USE WITH NICOTROL PRN PRN Reason: CRAVING Docusate Sodium (Colace Cap*) 100 mg PO BID PRN PRN Reason: CONSTIPATION Sodium Chloride (Ns 0.9% 1000 Ml*) 1,000 mls @ 100 mls/hr IV PER RATE KEN Dopamine HCl (Dopamine 200 Mg/250 Ml Ivprem*) 200 mg in 250 mls @ 2.4 mls/hr IV .Initial Rate KEN; 0.2 MCG/KG/MIN PRN Reason: Protocol Magnesium Hydroxide (Milk Of Magnesia Liq*) 30 ml PO Q4H PRN PRN Reason: CONSTIPATION Nicotine (Nicotine Inhaler*) 10 mg INH Q2H PRN PRN Reason: CRAVING Ondansetron HCl (Zofran Inj*) 4 mg IV Q4H PRN PRN Reason: NAUSEA/VOMITING Oxycodone/Acetaminophen (Percocet 5/325 Tab*) 1 tab PO Q4H PRN PRN Reason: Pain Last Admin: 03/28/17 21:27 Dose: 1 tab Senna (Senokot Tab*) 1 tab PO BID PRN PRN Reason: CONSTIPATION Vital Signs 03/28/17 03/28/17 03/28/17 11:14 11:15 11:54 Temperature 97.9 F 97.9 F 97.9 F Pulse Rate 97 97 83 Respiratory 22 22 24 Rate Blood Pressure 97/64 97/64 113/71 (mmHg) O2 Sat by Pulse 100 100 100 Oximetry 03/28/17 03/28/17 03/28/17 15:34 19:32 20:00 Temperature 97.7 F 97.5 F Pulse Rate 65 83 Respiratory 20 16 20 Rate Blood Pressure 121/73 96/68 (mmHg) O2 Sat by Pulse 99 100 Oximetry 03/28/17 03/28/17 03/28/17 21:27 23:27 23:30 Temperature 97.9 F Pulse Rate 75 Respiratory 20 17 16 Rate Blood Pressure 103/65 (mmHg) O2 Sat by Pulse 98 Oximetry 03/29/17 03/29/17 03/29/17 03:23 04:25 04:30 Temperature 98.0 F 97.3 F Pulse Rate 79 66 82 Respiratory 16 22 18 Rate Blood Pressure 85/43 182/141 104/83 (mmHg) O2 Sat by Pulse 99 99 99 Oximetry 03/29/17 03/29/17 03/29/17 04:46 05:00 05:15 Temperature Pulse Rate 85 79 76 Respiratory 23 18 19 Rate Blood Pressure 106/66 109/45 96/48 (mmHg) O2 Sat by Pulse 97 98 97 Oximetry 03/29/17 03/29/17 03/29/17 05:30 05:34 05:46 Temperature Pulse Rate 74 72 65 Respiratory 21 20 17 Rate Blood Pressure 80/31 96/72 82/50 (mmHg) O2 Sat by Pulse 97 97 95 Oximetry 03/29/17 03/29/17 03/29/17 05:56 06:00 06:15 Temperature Pulse Rate 75 90 Respiratory 24 24 19 Rate Blood Pressure 90/43 94/47 (mmHg) O2 Sat by Pulse 97 97 Oximetry 03/29/17 03/29/17 03/29/17 06:30 06:45 07:00 Temperature Pulse Rate 77 60 84 Respiratory 23 18 20 Rate Blood Pressure 110/59 98/59 (mmHg) O2 Sat by Pulse 97 97 99 Oximetry 03/29/17 03/29/17 03/29/17 07:01 07:16 07:20 Temperature 97.5 F Pulse Rate 84 98 Respiratory 21 20 Rate Blood Pressure 103/54 102/60 (mmHg) O2 Sat by Pulse 99 100 Oximetry 03/29/17 03/29/17 03/29/17 07:21 07:30 07:46 Temperature 97.5 F Pulse Rate 68 89 Respiratory 18 19 Rate Blood Pressure 95/61 99/55 (mmHg) O2 Sat by Pulse 100 100 Oximetry 03/29/17 03/29/17 03/29/17 08:00 08:15 08:30 Temperature Pulse Rate 78 77 61 Respiratory 18 16 17 Rate Blood Pressure 102/65 100/67 104/48 (mmHg) O2 Sat by Pulse 96 97 97 Oximetry 03/29/17 03/29/17 03/29/17 08:45 09:00 09:15 Temperature Pulse Rate 60 56 84 Respiratory 20 17 21 Rate Blood Pressure 99/55 101/55 114/56 (mmHg) O2 Sat by Pulse 97 98 96 Oximetry 03/29/17 03/29/17 09:30 10:00 Temperature Pulse Rate 74 87 Respiratory 27 18 Rate Blood Pressure 105/56 100/51 (mmHg) O2 Sat by Pulse 99 100 Oximetry Oxygen Devices in Use Now: Nasal Cannula - 2L-100% Appearance: Middle aged obese male lying in bed, NAD Eyes: No Scleral Icterus Ears/Nose/Mouth/Throat: Mucous Membranes Moist Respiratory: Symmetrical Chest Expansion and Respiratory Effort, Clear to Auscultation - anteriorly Cardiovascular: NL Sounds; No Murmurs; No JVD, - - irregularly irregular- controlled rate, 1-2+ pitting edema of the B/L LE Abdominal: NL Sounds; No Tenderness; No Distention Extremities: No Clubbing, Cyanosis Skin: No Nodules or Sclerosis, - - R LE: shallow ulceration posterior R calf, slight foul smell noted upon removing the dressing, no surrounding erythema- serous drainage noted on dressing'; L LE 1cm x3cm oblong ulceration posterolateral L calf-slighty deeper than other wounds, no slough or signs of infection, lateral left calf with shallow ulceration, no surrounding erythema or signs of infection Neurological: Alert and Oriented x 3 Result Diagrams: 03/29/17 05:23 03/29/17 05:23 Microbiology and Other Data: Microbiology 03/28/17 00:43 Urine Culture - Final Urine 03/29/17 04:24 Nasal Screen MRSA (PCR)(DUC) - Final Nasal Mrsa Negative 03/28/17 00:59 Aerobic Blood Culture - Preliminary Blood Venous No Growth Day 1 Anaerobic Blood Culture - Preliminary No Growth Day 1 03/28/17 00:59 Aerobic Blood Culture - Preliminary Blood Venous No Growth Day 1 Anaerobic Blood Culture - Preliminary No Growth Day 1 Assess/Plan/Problems-Billing Mr Barfield is a 66 y/o male patient presents to [facility] with complaints of mechanical fall from commode. - Patient Problems (1) Afib Current Visit: Yes Status: Acute Code(s): I48.91 - UNSPECIFIED ATRIAL FIBRILLATION SNOMED Code(s): 97427605 Comment: The patient had significant pauses overnight and at one point was noted to be cyanotic. This is despite his coreg being discontinued the early AM 03/28/17. Pradaxa is currently on hold as it is appearing he needs a PPM. Will continue dopamine as started this AM. Will likely have a temporary pacer placed today. I suspect this is at least partially related to his untreated MARINO however the patient will not be compliant with using the CPAP. (2) Elevated troponin Current Visit: Yes Status: Acute Code(s): R74.8 - ABNORMAL LEVELS OF OTHER SERUM ENZYMES SNOMED Code(s): 878321185 Comment: The patient will likely need an ischemic work up this hospitalization. The echo done earlier this hospitalization is useless but a determination of his EF will be necessary. He previously had an EF estimated to be 25% but increased to 50% on follow up echo a few years ago. Unclear what his EF is now. (3) Hypotension Current Visit: Yes Status: Acute Comment: BP remains low off his home medications. He is asymptomatic. For now fluids have been restarted-continue NS at 100ml/hr and monitor the BP. (4) Rhabdomyolysis Current Visit: Yes Status: Acute Code(s): M62.82 - RHABDOMYOLYSIS SNOMED Code(s): 104969873 Comment: Secondary to fall and not being able to get up off the floor. CPK has improved. No need to follow further. (5) Chronic wound of extremity Current Visit: Yes Status: Acute Code(s): VBZ9759 - SNOMED Code(s): 815851807 Comment: Wound care has recommended calcium alginate on the wounds covered with kerlix and dressings changed every other day. Encourage leg elevation. (6) ERIS (acute kidney injury) Current Visit: Yes Status: Acute Code(s): N17.9 - ACUTE KIDNEY FAILURE, UNSPECIFIED SNOMED Code(s): 56123731 Comment: Resolved after hydration. (7) Venous stasis Current Visit: Yes Status: Acute Code(s): I87.8 - OTHER SPECIFIED DISORDERS OF VEINS SNOMED Code(s): 14773975 Comment: Pt has chronic venous stasis ulcers-cover with calcium alginate per wound care and change q48hr. No signs of infection. (8) Tibial plateau fracture Current Visit: Yes Status: Acute Code(s): S82.143A - DISPLACED BICONDYLAR FRACTURE OF UNSP TIBIA, INIT SNOMED Code(s): 054322471 Comment: Will treat as if it is acute per Dr. Byrne but it is most likely chronic based on his previous imaging with abnormal findings. Continue knee immobilizer while out of bed otherwise he does not need the immobilizer on. (9) MARINO (obstructive sleep apnea) Current Visit: Yes Status: Acute Code(s): G47.33 - OBSTRUCTIVE SLEEP APNEA ( ADULT) (PEDIATRIC) SNOMED Code(s): 71948950 Comment: Pt is non-compliant with CPAP. (10) DVT prophylaxis Current Visit: Yes Status: Acute Code(s): ZZJ8951 - SNOMED Code(s): 289158099 Comment: Stop pradaxa for possible pacer insertion-will need to start SQ heparin-possibly later tonight. (11) Full code status Current Visit: Yes Status: Acute Code(s): Z78.9 - OTHER SPECIFIED HEALTH STATUS SNOMED Code(s): 035165988 Status and Disposition: .
--- NOTE | 2017-03-29 11:02 | PN ---
Progress Note - Progress Note Note: CRITICAL CARE MEDICINE PROCEDURE NOTE DATE: 03/29/17 TIME: 1000 SERVICE: Critical Care Medicine LOCATION OF PROCEDURE: ICU PROCEDURE: Introducer central line insertion. PROCEDURALIST: Dr. Tracey Consent obtain: Yes, from patient, but not holding full capacity, and therefore procedure performed emergently. Time out held: Yes INDICATION: Symptomatic bracdycardia needing transvenous pacing, asked a request of cardiology top place sheath so that they could place temp pacer. PROCEDURE: Oxygenation maintained and vitals monitored. Patient in supine position/trendelenburg position. . SITE: RIGHT Internal jugular Site preparation with chlorhexidine locally. Full sterile drape, gown, hat, mask, gloves. 5ml 1% Lidocaine utilized at incision site. Standard sterile Seldinger technique utilized via ultrasound guidance and 7.5 F percutaneous sheath catheter was inserted to 10cm and sutured in place with one anchor. Good blood return. Minimal blood loss. Site dressed with tegaderm. Placement confirmed with ultrasound. Patient otherwise tolerated well. Donya Tracey DO
--- NOTE | 2017-03-29 13:49 | RAD ---
Indication: Temporary pacemaker placement. Single frontal view of the chest performed at 1255 hours was reviewed. Comparison is made with previous exam dated March 27, 2017. Cardiomegaly is noted. Lung arce demonstrate no pleural fluid, pneumonia or pneumothorax. When compared to previous exam of March 27, 2017 no significant change is noted. Pacemaker leads are in place. IMPRESSION: CARDIOMEGALY WITH NO EVIDENCE OF ACTIVE CARDIOPULMONARY DISEASE. PACEMAKER LEADS IN PLACE.
--- NOTE | 2017-03-29 14:42 | CATH ---
REPAIRER [employer]ICKS REPORT: DATE OF PROCEDURE: 03/29/17 PROCEDURE: Placement of temporary pacemaker wire, right internal jugular, under fluoroscopy. INDICATION: Severe symptomatic bradycardia/asystole with need for negative chronotropic drugs. DESCRIPTION OF PROCEDURE: The right internal jugular venous sheath placed in the ICU was prepped sterilely, exchanged sterilely over a wire for a new 8- Turkmen sterile sheath. A 5-Turkmen bipolar pacing wire was advanced under fluoroscopy to the RV apex. A suitable location was found. Threshold was measured at less than 0.5 MA, the wire was then secured. The temporary pacer was set at a rate of 70, 5 MA, demand mode. There were no complications. [id number]/[facility] #: [id number] [facility]ITALTonia
[2017-03-29] MEDS ORDERED: Lidocaine 4% TOPICAL* 50 ML TOP.SOLN ONE (15:27)
[2017-03-29] MEDS ORDERED: Oxymetazoline 0.05% NASAL SPR* 15 ML BTL ONE (15:50)
--- NOTE | 2017-03-29 17:12 | TEE ---
Amended Report Patient: RACHEL VALENCIA Rec#: [id number] : 1950 Date: 03/29/2017 Age: 66y Height: 175.3 cm / 69.0 in Weight: 152.9 kg / 337.0 lbs Sex: M BSA: 2.6 Room#: ICU 4 Admit Date#: 03/26/2017 Type: Inpatient Referring: Johnathon Rodas MD Performing: Johnathon Rodas MD Reading: Johnathon Rodas MD Entry Level Accounting Clerk: Mitra Parra RN RD Nurse: Dang Nur RN CC: Ino Loomis MD Transesophageal Echocardiogram Indication: Cardiomyopathy, inadequate transthoracic echocardiogram BP: 105/68 HR: 70 Rhythm: A-Fib Findings History: A. fib, HTN, CHF, morbid obesity, MARINO, CVA, ASHLEY thrombus Technical Comments: The study quality is good. Left Ventricle: The left ventricular chamber size is normal. There is global hypokinesis of the left ventricle with minor regional variation.More pronounced anterior anteroseptal and apical hypokinesis. There is severely decreased left ventricular systolic function. The estimated ejection fraction is 20-25%. Left Atrium: The left atrium is mild to moderately dilated. No thrombus is visualized within the left atrium. There is no thrombus visualized in the left atrial appendage. Right Ventricle: The right ventricular cavity size is normal. The right ventricular global systolic function is mildly reduced. Right Atrium: The right atrium is mild to moderately dilated. A patent foramen ovale is not demonstrated by color Doppler. A bubble study was performed on a prior exam and is not repeated today. Aortic Valve: The aortic valve is trileaflet. The aortic valve leaflets are mildly thickened. There is no evidence of aortic regurgitation. There is no evidence of aortic stenosis. Mitral Valve: The mitral valve leaflets appear normal. There is mild mitral regurgitation. There is no evidence of mitral stenosis. Tricuspid Valve: The tricuspid valve leaflets are normal. There is mild tricuspid regurgitation. Pulmonic Valve: The pulmonic valve structure is not well visualized. Pericardium: There is no significant pericardial effusion. Aorta: There is no dilatation of the ascending aorta. There is no dilation of the aortic root. There is mild atherosclerotic plaque seen in the descending aorta. Pulmonary Artery: The main pulmonary artery is not well visualized. Venous: The bicaval view was obtained and appears normal. The pulmonary veins appear normal. 2 of 4 pulmonary veins are visualized and interrogated with Doppler. JOEL Procedures: All standard views were attempted within the limitations of patient tolerance and safety. History and physical as well as labs were reviewed. The patient was in a fasting state. Risks and benefits of the procedure, including alternatives, were discussed and written informed consent was obtained. The patient and/or their health care shipping services sales representative expressed understanding of the procedure, risks and benefits. Baseline and continuous monitoring of blood pressure, heart rate, pulse oximetry and heart rhythm was performed throughout the procedure. The appropriate time-out procedure was performed as per [facility] protocol. The patient was placed in the left lateral decubitus position. The patient received IV Midazolam with a total dose of 4 mg. The patient received IV Fentanyl with a total dose of 100 mcg. Sedation administered by the anesthesiologist in the operating room. An oral bite block was inserted for protection of oral dentition. Topical anesthesia and sedation was administered in the OR by the anesthesiologist, Dr. Cooper Hernandez. Please see his documentation for further details. The multiplane transesophageal echocardiogram probe was inserted through the posterior oropharynx and advanced into the esophagus without difficulty. Multiple 2D images were obtained of the heart and its related structures. Color flow Doppler was used for evaluation. Spectral Doppler was also used. The atrial septum was interrogated with color flow Doppler. At the conclusion of the procedure the probe was removed with continuous suction without complications. The patient tolerated the procedure with no apparent complications. Conclusions The patient was placed in the left lateral decubitus position. There is severely decreased left ventricular systolic function. There is global hypokinesis of the left ventricle with minor regional variation. More pronounced anterior anteroseptal and apical hypokinesis. The estimated ejection fraction is 20-25%. The left atrium is mild to moderately dilated. The right ventricular global systolic function is mildly reduced. The right atrium is mild to moderately dilated. There is mild mitral regurgitation. There is mild tricuspid regurgitation. Similar to the JOEL of except that no LASC and no ASHLEY thrombus were visualized this time. Measurements Name Value Normal Range Aortic Annulus 2.5 cm (1.4 - 2.6) Ao root diameter (2D) 3.5 cm (2.1 - 3.5) Ascending Ao 3.2 cm (2.1 - 3.4)
[2017-03-29] MEDS: NS 0.9% 1000 ML* 1,000 ML IV SCH (17:23)
[2017-03-29] MEDS: oxyCODONE/Acetamin 5/325 MG* TAB PO PRN (20:43)
[2017-03-30] MEDS: NS 0.9% 1000 ML* 1,000 ML IV SCH (03:25)
[2017-03-30] MEDS ORDERED: oxyCODONE/Acetamin 5/325 MG* TAB PO PRN ×2 (07:27→07:33)
--- NOTE | 2017-03-30 07:41 | PN ---
Subjective Date of Service: 03/30/17 Interval History: Pt is feeling well this AM. He states he feels better since having the temporary pacemaker placed. He does c/o some pain in his R leg but otherwise no pain. He denies SOB. Objective Active Medications: Acetaminophen (Tylenol Tab*) 650 mg PO Q4H PRN PRN Reason: FEVER/PAIN Last Admin: 03/28/17 04:49 Dose: 650 mg Al Hydrox/Mg Hydrox/Simethicone (Maalox Plus*) 30 ml PO Q6H PRN PRN Reason: INDIGESTION Aspirin (Aspirin Ec Low Dose*) 81 mg PO DAILY KEN Last Admin: 03/29/17 09:40 Dose: Not Given Device (Nicotine Mouth Piece*) 1 each INH .USE WITH NICOTROL PRN PRN Reason: CRAVING Docusate Sodium (Colace Cap*) 100 mg PO BID PRN PRN Reason: CONSTIPATION Magnesium Hydroxide (Milk Of Magnesia Liq*) 30 ml PO Q4H PRN PRN Reason: CONSTIPATION Nicotine (Nicotine Inhaler*) 10 mg INH Q2H PRN PRN Reason: CRAVING Ondansetron HCl (Zofran Inj*) 4 mg IV Q4H PRN PRN Reason: NAUSEA/VOMITING Oxycodone/Acetaminophen (Percocet 5/325 Tab*) 2 tab PO Q4H PRN PRN Reason: Pain 6-10 Oxycodone/Acetaminophen (Percocet 5/325 Tab*) 1 tab PO Q4H PRN PRN Reason: Pain 1-5 Senna (Senokot Tab*) 1 tab PO BID PRN PRN Reason: CONSTIPATION Vital Signs 03/29/17 03/29/17 03/29/17 07:46 08:00 08:15 Temperature Pulse Rate 89 78 77 Respiratory 19 18 16 Rate Blood Pressure 99/55 102/65 100/67 (mmHg) O2 Sat by Pulse 100 96 97 Oximetry 03/29/17 03/29/17 03/29/17 08:30 08:45 09:00 Temperature Pulse Rate 61 60 56 Respiratory 17 20 17 Rate Blood Pressure 104/48 99/55 101/55 (mmHg) O2 Sat by Pulse 97 97 98 Oximetry 03/29/17 03/29/17 03/29/17 09:15 09:30 10:00 Temperature Pulse Rate 84 74 87 Respiratory 21 27 18 Rate Blood Pressure 114/56 105/56 100/51 (mmHg) O2 Sat by Pulse 96 99 100 Oximetry 03/29/17 03/29/17 03/29/17 10:15 10:31 10:45 Temperature Pulse Rate 49 84 99 Respiratory 21 22 32 Rate Blood Pressure 89/41 90/49 110/53 (mmHg) O2 Sat by Pulse 98 99 97 Oximetry 03/29/17 03/29/17 03/29/17 11:00 12:18 12:19 Temperature Pulse Rate 93 66 98 Respiratory 22 20 21 Rate Blood Pressure 107/76 117/61 (mmHg) O2 Sat by Pulse 99 93 98 Oximetry 03/29/17 03/29/17 03/29/17 12:30 12:45 13:00 Temperature Pulse Rate 76 75 96 Respiratory 20 21 17 Rate Blood Pressure 111/62 117/59 100/65 (mmHg) O2 Sat by Pulse 99 100 99 Oximetry 03/29/17 03/29/17 03/29/17 13:15 13:45 14:00 Temperature Pulse Rate 60 69 62 Respiratory 17 17 21 Rate Blood Pressure 108/47 111/62 106/67 (mmHg) O2 Sat by Pulse 97 99 100 Oximetry 03/29/17 03/29/17 03/29/17 14:15 14:45 15:00 Temperature Pulse Rate 66 72 82 Respiratory 20 20 18 Rate Blood Pressure 105/68 124/85 115/68 (mmHg) O2 Sat by Pulse 100 100 100 Oximetry 03/29/17 03/29/17 03/29/17 15:16 15:30 15:45 Temperature Pulse Rate 80 73 Respiratory 22 23 Rate Blood Pressure 101/67 113/76 114/68 (mmHg) O2 Sat by Pulse 100 100 Oximetry 03/29/17 03/29/17 03/29/17 16:28 16:30 16:34 Temperature 96.8 F Pulse Rate 84 80 68 Respiratory 20 17 15 Rate Blood Pressure 114/69 107/71 106/65 (mmHg) O2 Sat by Pulse 98 100 98 Oximetry 03/29/17 03/29/17 03/29/17 16:35 16:40 16:45 Temperature 96.8 F Pulse Rate 96 70 90 Respiratory 19 20 19 Rate Blood Pressure 106/65 126/72 109/63 (mmHg) O2 Sat by Pulse 100 98 98 Oximetry 03/29/17 03/29/17 03/29/17 17:00 17:16 17:30 Temperature Pulse Rate 55 94 Respiratory 14 20 23 Rate Blood Pressure 123/77 131/85 124/80 (mmHg) O2 Sat by Pulse 94 98 Oximetry 03/29/17 03/29/17 03/29/17 17:45 18:00 18:15 Temperature Pulse Rate 87 93 97 Respiratory 26 21 21 Rate Blood Pressure 116/85 133/110 117/88 (mmHg) O2 Sat by Pulse 95 94 93 Oximetry 03/29/17 03/29/17 03/29/17 18:30 19:00 19:15 Temperature Pulse Rate 102 90 82 Respiratory 17 27 26 Rate Blood Pressure 124/74 118/90 110/83 (mmHg) O2 Sat by Pulse 92 91 90 Oximetry 03/29/17 03/29/17 03/29/17 19:30 19:34 19:45 Temperature 98.3 F Pulse Rate 103 72 Respiratory 26 23 Rate Blood Pressure 103/81 105/58 (mmHg) O2 Sat by Pulse 91 94 Oximetry 03/29/17 03/29/17 03/29/17 20:00 20:30 20:43 Temperature Pulse Rate 82 65 Respiratory 27 24 21 Rate Blood Pressure 98/71 117/79 (mmHg) O2 Sat by Pulse 92 97 Oximetry 03/29/17 03/29/17 03/29/17 21:00 21:30 22:00 Temperature Pulse Rate 93 101 83 Respiratory 25 26 32 Rate Blood Pressure 126/95 126/78 145/61 (mmHg) O2 Sat by Pulse 90 92 95 Oximetry 03/29/17 03/29/17 03/29/17 22:23 22:30 23:00 Temperature Pulse Rate 79 73 85 Respiratory 30 30 30 Rate Blood Pressure 140/91 119/74 (mmHg) O2 Sat by Pulse 98 96 95 Oximetry 03/29/17 03/29/17 03/30/17 23:30 23:56 00:00 Temperature 98.5 F Pulse Rate 84 85 Respiratory 30 29 Rate Blood Pressure 122/77 (mmHg) O2 Sat by Pulse 97 98 Oximetry 03/30/17 03/30/17 03/30/17 00:01 00:30 01:00 Temperature Pulse Rate 86 93 75 Respiratory 30 22 24 Rate Blood Pressure 126/76 138/125 123/68 (mmHg) O2 Sat by Pulse 97 97 96 Oximetry 03/30/17 03/30/17 03/30/17 01:30 02:00 02:30 Temperature Pulse Rate 83 72 75 Respiratory 26 27 20 Rate Blood Pressure 101/58 115/71 128/70 (mmHg) O2 Sat by Pulse 94 93 91 Oximetry 03/30/17 03/30/17 03/30/17 03:00 03:30 04:00 Temperature 98.9 F Pulse Rate 79 74 74 Respiratory 23 21 22 Rate Blood Pressure 84/55 91/55 83/47 (mmHg) O2 Sat by Pulse 96 90 97 Oximetry 03/30/17 03/30/17 03/30/17 04:30 05:00 05:31 Temperature Pulse Rate 80 82 87 Respiratory 21 21 21 Rate Blood Pressure 96/46 105/69 94/62 (mmHg) O2 Sat by Pulse 97 96 97 Oximetry 03/30/17 03/30/17 06:00 07:25 Temperature 98.0 F Pulse Rate 100 Respiratory 23 Rate Blood Pressure 101/60 (mmHg) O2 Sat by Pulse 96 Oximetry Oxygen Devices in Use Now: Nasal Cannula - 2L-96% Appearance: Middle aged morbidly obese male lying in bed, NAD Eyes: No Scleral Icterus Ears/Nose/Mouth/Throat: Mucous Membranes Moist Respiratory: Symmetrical Chest Expansion and Respiratory Effort, Clear to Auscultation - anteriorly and lateral bases Cardiovascular: NL Sounds; No Murmurs; No JVD, RRR, - - minimal LE edema Abdominal: NL Sounds; No Tenderness; No Distention Extremities: No Clubbing, Cyanosis Skin: No Nodules or Sclerosis, - - ulcerations not inspected today Neurological: Alert and Oriented x 3 Result Diagrams: 03/29/17 05:23 03/29/17 05:23 Microbiology and Other Data: Microbiology 03/28/17 00:43 Urine Culture - Final Urine 03/29/17 04:24 Nasal Screen MRSA (PCR)(DUC) - Final Nasal Mrsa Negative 03/28/17 00:59 Aerobic Blood Culture - Preliminary Blood Venous No Growth Day 1 Anaerobic Blood Culture - Preliminary No Growth Day 1 03/28/17 00:59 Aerobic Blood Culture - Preliminary Blood Venous No Growth Day 1 Anaerobic Blood Culture - Preliminary No Growth Day 1 Assess/Plan/Problems-Billing Mr Barfield is a 66 y/o male [place] [facility] [place] from [place]. - Patient Problems (1) Afib Current Visit: Yes Status: Acute Code(s): I48.91 - UNSPECIFIED ATRIAL FIBRILLATION SNOMED Code(s): 25579529 Comment: The patient is s/p temporary pacemaker insertion. He will need a PPM (? ICD) but he had been on pradaxa up until last evening. BBlocker is currently on hold. Will discuss with Dr. Rodas about heparin drip while his pradaxa is on hold. (2) Elevated troponin Current Visit: Yes Status: Acute Code(s): R74.8 - ABNORMAL LEVELS OF OTHER SERUM ENZYMES SNOMED Code(s): 425593867 Comment: The patient is s/p JOEL yesterday that showed his EF to be 20-25%. He likely need catheterization to determine the cause of his cardiomyopathy (? ischemic), (3) Hypotension Current Visit: Yes Status: Acute Comment: BP remains low off his home medications. He is asymptomatic. Hold fluids given his low EF. Monitor BP. (4) Rhabdomyolysis Current Visit: Yes Status: Acute Code(s): M62.82 - RHABDOMYOLYSIS SNOMED Code(s): 282366871 Comment: Resolved. (5) Chronic wound of extremity Current Visit: Yes Status: Acute Code(s): MCM0475 - SNOMED Code(s): 975827013 Comment: Wound care has recommended calcium alginate on the wounds covered with kerlix and dressings changed every other day. Encourage leg elevation. (6) ERIS (acute kidney injury) Current Visit: Yes Status: Acute Code(s): N17.9 - ACUTE KIDNEY FAILURE, UNSPECIFIED SNOMED Code(s): 09282596 Comment: Resolved after hydration. (7) Venous stasis Current Visit: Yes Status: Acute Code(s): I87.8 - OTHER SPECIFIED DISORDERS OF VEINS SNOMED Code(s): 27165836 Comment: Pt has chronic venous stasis ulcers-no signs of infection. Monitor closely. (8) Tibial plateau fracture Current Visit: Yes Status: Acute Code(s): S82.143A - DISPLACED BICONDYLAR FRACTURE OF UNSP TIBIA, INIT SNOMED Code(s): 850031369 Comment: Will treat as if it is acute per Dr. Byrne but it is most likely chronic based on his previous imaging with abnormal findings. Continue knee immobilizer while out of bed otherwise he does not need the immobilizer on. (9) MARINO (obstructive sleep apnea) Current Visit: Yes Status: Acute Code(s): G47.33 - OBSTRUCTIVE SLEEP APNEA ( ADULT) (PEDIATRIC) SNOMED Code(s): 56799504 Comment: Pt is non-compliant with CPAP. (10) DVT prophylaxis Current Visit: Yes Status: Acute Code(s): RYM4144 - SNOMED Code(s): 452869549 Comment: ? heparin drip-will discuss with Dr. Rodas (11) Full code status Current Visit: Yes Status: Acute Code(s): Z78.9 - OTHER SPECIFIED HEALTH STATUS SNOMED Code(s): 959637374 Status and Disposition: .
[2017-03-30] MEDS ORDERED: CMC:Dabigatran CAP(NF) 150 MG CAP PO SCH (12:00)
[2017-03-30] MEDS: Aspirin EC Low Dose* 81 MG TAB.EC PO SCH (12:02)
--- NOTE | 2017-03-30 14:01 | DS ---
DISCHARGE SUMMARY DATE OF ADMISSION: 03/26/[address] [facility]: 03/30/17 PRIMARY CARE PROVIDER: Dr. Loomis PRINCIPAL DIAGNOSES: 1. Sick sinus syndrome with up to 15 second pauses requiring insertion of temporary pacemaker. 2. Atrial fibrillation. 3. Mechanical fall with resultant rhabdomyolysis. 4. Elevated troponin - possibly demand ischemia. 5. Morbid obesity. 6. Possible acute right tibial plateau fracture. 7. Hypertension. DISCHARGE MEDICATIONS: 1. Tylenol 650 mg every 4 hours p.r.n. pain. 2. Maalox 30 mL p.o. every 6 hours p.r.n. indigestion. 3. Aspirin 81 mg p.o. daily. 4. Captopril 6.25 mg p.o. 3x a day. 5. Pradaxa 150 mg p.o. twice daily. 6. Nicotine inhaler 10 mg inhaled every 2 hours p.r.n. craving. 7. Colace 100 mg p.o. b.i.d. p.r.n. constipation. 8. Zofran 4 mg IV every 4 hours p.r.n. nausea. 9. Percocet 5/325 one tab p.o. every 4 hours p.r.n. pain 1-5; two tabs every 4 hours p.r.n. pain 6-10. 10. Senna 1 tab p.o. b.i.d. p.r.n. constipation. HOSPITAL COURSE: Mr. Barfield is a 66-year-old male with history of atrial fibrillation, hypertension and morbid obesity, who was at home in his usual state of health until the day of admission. Patient sat down on the commode that sits over top of his toilet when the commode gave away. He fell to the toilet which then broke away from the wall and he landed on the floor. The patient was unable to get up on his own from the floor. He was able to crawl out to the living room. He remained on the floor for approximately 5 hours. The patient was able to call the niece. When she showed up she tried to get him up and walk, but he could not ambulate due to significant right knee pain and EMS was contacted. In the emergency room the patient was found to have an elevated CPK consistent with mild rhabdomyolysis, as well as acute kidney injury and an elevated troponin. The patient was admitted for evaluation of these conditions. In terms of the rhabdomyolysis this improved quite rapidly with IV fluid hydration. His CPK level peaked at 1188. This subsequently trended down. The patient also had acute kidney injury with his creatinine being elevated at 1.69 on the day of admission, trending down to 0.86 on the day prior to transfer to [place]. The patient overall has done well from this standpoint. In terms of the knee pain, however, this was noted to be more severe than baseline. 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 The absence of a joint effusion suggests this may be chronic. Because of this finding the patient was seen in consultation by Dr. Byrne from Orthopedics. It was felt that this most likely was chronic, however given the patient's increased pain in the knee, the decision was made to treat this as if it was acute. The patient has been instructed to wear a knee immobilizer when up out of bed and he can be weightbearing as tolerated. Once in bed, he does not need the immobilizer in place. The director life insurance of 03/28/17 the patient was noted to have heart rate dipping down into the 30s as well as pauses on telemetry. Because of this his Coreg was discontinued. The last dose of Coreg he received was on the evening of 03/27/17. The patient did well throughout 03/28/17, however on the morning of 03/29/17 the patient again was noted to have significant pauses. The patient had pauses up to 15 seconds long. In the ICU the patient had again several long pauses and went apneic and cyanotic. He awoke with very deep sternal rub. At that time Cardiology was consulted. The patient was seen in consultation by Dr. Rodas who felt that a temporary pacemaker was indicated. This was performed on 03/29/[address] Zuluaga. The patient has actually done quite well since having the temporary pacemaker in place. Because of the elevated troponins on admission, the patient underwent transthoracic echocardiogram. This was an incredibly poor study despite using contrast. The patient's EF was unable to be estimated. When Dr. Rodas performed his consultation he was able to review Dr. Medel's outpatient records which revealed his EF in 2011 to be 25% up to 50% in 2014, but we do not have any new estimations of his ejection fraction. Because of the need for a permanent pacemaker for sick sinus syndrome, the decision was made to have the patient undergo transesophageal echocardiogram. This was performed on which revealed anterior septal and apical hypokinesis, as well as an ejection fraction of 20% to 25%. The left atrium was felt to be mildly to moderately dilated. The right ventricular global systolic function was also felt to be mildly reduced. There was mild mitral regurgitation and mild tricuspid regurgitation. Now knowing that the patient's ejection fraction is markedly reduced at 20% to 25%, the decision was made to have the patient transferred to [facility] for consideration of biventricular pacer insertion. The patient is in agreement with this plan. His niece, who is his health care proxy, is aware of the transfer. The patient is stable at the time of transfer, feeling quite well without any chest pain, shortness of breath or lightheadedness. FOLLOWUP CONCERNS: Patient is being transferred to [facility] today, 03/30/17. ACTIVITY: Bedrest. CONDITION ON DISCHARGE: Stable. TIME SPENT: 45 minutes were spent discharging this patient. CC: Dr. Loomis * [id number]/CPS #: [id number] MONI
[2017-03-30] MEDS ORDERED: Captopril TAB* 12.5 MG PO SCH (15:00)
[2017-03-30 15:06] VITALS: BP 111/69
== END 2017-03-30 16:05 | disposition short-term general hospital (02) | DRG 564 ==
LOC: ED 19:16 → MEDTELE 22:09 → ICU 03-29 03:54
PROVIDERS: ADMIT Pediatrics; ATTEND Hospitalist
PROC: 2W3LX3Z Immobilization of Right Lower Extremity using Brace (ICD-10-PCS; 2017-03-27)
PROC: 05HM33Z Insertion of Infusion Device into Right Internal Jugular Vein, Percutaneous Approach (ICD-10-PCS; 2017-03-29)
PROC: B513ZZA Fluoroscopy of Right Jugular Veins, Guidance (ICD-10-PCS; 2017-03-29)
PROC: 5A1223Z Performance of Cardiac Pacing, Continuous (ICD-10-PCS; principal; 2017-03-29 10:30)
DX: T79.6XXA Traumatic ischemia of muscle, initial encounter (principal); I46.2 Cardiac arrest due to underlying cardiac condition; N17.9 Acute kidney failure, unspecified; I11.0 Hypertensive heart disease with heart failure; I95.9 Hypotension, unspecified; I24.8 Other forms of acute ischemic heart disease; I42.9 Cardiomyopathy, unspecified; I49.5 Sick sinus syndrome; I50.9 Heart failure, unspecified; S82.142A Displaced bicondylar fracture of left tibia, initial encounter for closed fracture; L97.219 Non-pressure chronic ulcer of right calf with unspecified severity; L97.229 Non-pressure chronic ulcer of left calf with unspecified severity; Z68.43 Body mass index [BMI] 50.0-59.9, adult; E66.01 Morbid (severe) obesity due to excess calories; I08.1 Rheumatic disorders of both mitral and tricuspid valves; I48.91 Unspecified atrial fibrillation; W18.11XA Fall from or off toilet without subsequent striking against object, initial encounter; Y92.002 Bathroom of unspecified non-institutional (private) residence as the place of occurrence of the external cause; Z79.82 Long term (current) use of aspirin; Z79.01 Long term (current) use of anticoagulants; Z86.73 Personal history of transient ischemic attack (TIA), and cerebral infarction without residual deficits; Z98.1 Arthrodesis status; Z82.49 Family history of ischemic heart disease and other diseases of the circulatory system; F17.210 Nicotine dependence, cigarettes, uncomplicated; I87.8 Other specified disorders of veins; G47.33 Obstructive sleep apnea (adult) (pediatric); M16.11 Unilateral primary osteoarthritis, right hip; M17.11 Unilateral primary osteoarthritis, right knee; D72.829 Elevated white blood cell count, unspecified; E86.0 Dehydration; I83.002 Varicose veins of unspecified lower extremity with ulcer of calf
CPT/HCPCS: 33210; 36415; 36600; 71010; 71020; 80048; 80053; 80061; 81003; 81015; 82550; 82553; 82570; 82803; 83605; 83735; 83880; 84300; 84443; 84484; 85025; 85027; 85610; 87040; 87086; 87641; 93005; 93306; 93312; 93325; A9270-GY; C1776; C8929; J0461; J1644; J2001; J2250; J2270; J2405; J3010

== ENCOUNTER 2017-04-11 12:42 | Observation (INO) | payer MEDICARE ==
[2017-04-11 16:01] LABS: Hematocrit 42 % (42-52); Hemoglobin 13.5 g/dl (14.0-18.0); Mean Corpuscular HGB Conc 32 g/dl (31-36); Mean Corpuscular Hemoglobin 28 pg (27-31); Mean Corpuscular Volume 86 fL (80-94); Mean Platelet Volume 9 um3 (7.4-10.4); Red Blood Count 4.88 10^6/ul (4.0-5.4); Red Cell Distribution Width 14 % (10.5-15)
[2017-04-11 16:23] LABS: Albumin 3.7 g/dL (3.2-5.2); BUN/Creatinine Ratio 12.6 (8-20); Calcium 9.6 mg/dL (8.6-10.3); EGFR Non-African American 25.7 (>60); Globulin 3.7 g/dL (2-4); Magnesium 2.1 mg/dL (1.9-2.7); Total Bilirubin 0.7 mg/dL (0.2-1.0); Total Protein 7.4 g/dL (6.4-8.9)
[2017-04-11 16:25] LABS: Troponin I 0.03 ng/mL (<0.04)
[2017-04-11 16:27] LABS: Potassium 5.4 mmol/L (3.5-5.0)
[2017-04-11 17:38] LABS: TSH (Thyroid Stimulating Horm) 2.72 mcIU/mL (0.34-5.60)
[2017-04-11] MEDS ORDERED: NS 0.9% 1000 ML* 1,000 ML IV SCH (19:30)
[2017-04-11] MEDS ORDERED: NS 0.9% 500 ML BAG* 500 ML IV SCH (20:00)
[2017-04-11] MEDS ORDERED: Metoprolol Tartrate TAB* 25 MG PO SCH (21:00)
[2017-04-11] MEDS ORDERED: Carvedilol TAB* 6.25 MG PO SCH (21:00)
[2017-04-11] MEDS ORDERED: Ondansetron INJ* 2 MG/ML VIAL IV PRN (21:25)
[2017-04-11] MEDS ORDERED: CMCS Melatonin (NF) 3 MG TAB PO PRN (21:25)
[2017-04-11] MEDS ORDERED: Docusate CAP* 100 MG PO PRN (21:26)
[2017-04-11] MEDS ORDERED: Heparin VIAL(*) 5000 UNITS/ML VIAL (FIVE THOUSAND) SUBCUT SCH (22:00)
[2017-04-11] MEDS ORDERED: MICONAZOLE 2% TOPICAL SCH (22:30)
[2017-04-11] MEDS ORDERED: Miconazole TOPICAL CREAM 2%* 30 GM TOPICAL SCH (22:38)
[2017-04-11] MEDS: CMCS Dabigatran CAP(NF) 150 MG CAP PO SCH (22:57)
--- NOTE | 2017-04-11 23:15 | ED ---
Paulo Kwon Alok, scribed for Mango Earl MD on 04/11/17 at 1405 . Lower Extremity - HPI Summary HPI Summary: 66M presents to the ED for increased weakness and difficulties with ambulation. Pt was released from [facility] in [place] yesterday. Pt's nurse at home states he could not walk as of this morning. Pt states he can ambulate fine and normally ambulates with a walker. Pt presents with lower extremity edema bilaterally. Pt denies SOB. PMHx includes TIA, HTN, atrial fibrillation, and a pacemaker. - History of Current Complaint Chief Complaint: EDWeakness Stated Complaint: RAIPED HEART RATE Time Seen by Provider: 04/11/17 13:11 Hx Obtained From: Patient Severity Initially: Moderate Severity Currently: Moderate Pain Intensity: 0 Pain Scale Used: 0-10 Numeric Associated Signs And Symptoms: Positive: Swelling - lower extremities bilaterally - Allergies/Home Medications Allergies/Adverse Reactions: Allergies Allergy/AdvReac Type Severity Reaction Status Date / Time No Known Allergies Allergy Verified 03/26/17 19:40 Home Medications: Home Medications Lisinopril TAB* [Prinivil TAB*] 5 mg PO DAILY 04/11/17 [History Confirmed ] Metoprolol Tartrate TAB* [Lopressor TAB*] 25 mg PO BID 04/11/17 [History Confirmed 04/11/17] Polyethylene Glycol 3350* [Miralax*] 17 gm PO DAILY 04/11/17 [History Confirmed 04/11/17] Torsemide [Demadex 10 MG] 10 mg PO DAILY 04/11/17 [History Confirmed 04/11/17] PMH/Surg Hx/FS Hx/Imm Hx Endocrine/Hematology History: Denies: Hx Anticoagulant Therapy Cardiovascular History: Reports: Hx Atrial Fibrillation, Hx Hypertension - NOTED ON THIS VISIT, PT DENIES HX, Hx Pacemaker/ICD - TEMP PACER 03/29/17., Hx Valvular Heart Disease - mild mitral insufficiency, dilated (right) atrium trace tricuspid insuffici Respiratory History: Reports: Other Respiratory Problems/Disorders - smoker Musculoskeletal History: Reports: Hx Back Problems - 1981 spinal cord injury ( [place]) Denies: Hx Rheumatoid Arthritis, Hx Osteoporosis Sensory History: Reports: Hx Hearing Problem - [facility] Denies: Hx Contacts or Glasses, Hx Hearing Aid Opthamlomology History: Denies: Hx Contacts or Glasses Neurological History: Reports: Hx Spinal Cord Injury - "PT STATES "FROM LIFTING ", Other Neuro Impairments/Disorders - TIA'S Psychiatric History: Denies: Hx Panic Disorder - Surgical History Surgery Procedure, Year, and Place: CERVICAL FUSION IN THE Hx Anesthesia Reactions: No - Immunization History Date of Tetanus Vaccine: unk Infectious Disease History: No Infectious Disease History: Denies: Traveled Outside the [place] in Last 30 Days - Family History Known Family History: Positive: Hypertension - Social History Occupation: Retired Alcohol Use: None Substance Use Type: Reports: None Smoking Status (MU): Current Every Day Smoker Review of Systems Negative: Fever Negative: Shortness Of Breath Positive: Edema - lower extremity bilaterally All Other Systems Reviewed And Are Negative: Yes Physical Exam Triage Information Reviewed: Yes Vital Signs On Initial Exam: Initial Vitals Temp Pulse Resp BP Pulse Ox 98.8 F 82 19 92/75 96 04/11/17 13:00 04/11/17 13:00 04/11/17 13:00 04/11/17 13:00 04/11/17 13:00 Vital Signs Reviewed: Yes Appearance: Positive: Well-Appearing, No Pain Distress, Obese Skin: Positive: Other - Chronic venous stasis both legs Head/Face: Positive: Normal Head/Face Inspection Eyes: Positive: Normal ENT: Positive: Normal ENT inspection Neck: Positive: Supple, Nontender Respiratory/Lung Sounds: Positive: Clear to Auscultation, Breath Sounds Present Cardiovascular: Positive: RRR Abdomen Description: Positive: Nontender, Soft Bowel Sounds: Positive: Present Musculoskeletal: Positive: Other - chronic venous stasis both legs Neurological: Positive: Normal Psychiatric: Positive: Normal, Affect/Mood Appropriate - Stephen Coma Scale Coma Scale Total: 15 Diagnostics - Vital Signs Vital Signs Temp Pulse Resp BP Pulse Ox 04/11/17 13:04 98.8 F 80 17 92/75 96 04/11/17 13:03 79 17 94 04/11/17 13:00 98.8 F 82 19 92/75 96 - Laboratory Lab Results: Lab Results 04/11/17 04/11/17 04/11/17 Range/Units 15:50 15:50 15:50 WBC 15.0 H (3.5-10.8) 10^3/ul RBC 4.88 (4.0-5.4) 10^6/ul Hgb 13.5 L (14.0-18.0) g/dl Hct 42 (42-52) % MCV 86 (80-94) fL MCH 28 (27-31) pg MCHC 32 (31-36) g/dl RDW 14 (10.5-15) % Plt Count 317 (150-450) 10^3/ul MPV 9 (7.4-10.4) um3 Neut % (Auto) 86.7 H (38-83) % Lymph % (Auto) 6.3 L (25-47) % [place] % (Auto) 5.6 (1-9) % Eos % (Auto) 1.0 (0-6) % Baso % (Auto) 0.4 (0-2) % Absolute Neuts (auto) 13.0 H (1.5-7.7) 10^3/ul Absolute Lymphs (auto) 0.9 L (1.0-4.8) 10^3/ul Absolute Monos (auto) 0.8 (0-0.8) 10^3/ul Absolute Eos (auto) 0.1 (0-0.6) 10^3/ul Absolute Basos (auto) 0.1 (0-0.2) 10^3/ul Absolute Nucleated RBC 0 10^3/ul Nucleated RBC % 0 Sodium 127 L (133-145) mmol/L Potassium 5.4 H (3.5-5.0) mmol/L Chloride 94 L (101-111) mmol/L Carbon Dioxide 22 (22-32) mmol/L Anion Gap 11 (2-11) mmol/L BUN 32 H (6-24) mg/dL Creatinine 2.54 H (0.67-1.17) mg/dL Est GFR ( Amer) 33.0 (>60) Est GFR (Non-Af Amer) 25.7 (>60) BUN/Creatinine Ratio 12.6 (8-20) Glucose 103 H (70-100) mg/dL Lactic Acid 1.5 (0.5-2.0) mmol/L Calcium 9.6 (8.6-10.3) mg/dL Magnesium 2.1 (1.9-2.7) mg/dL Total Bilirubin 0.70 (0.2-1.0) mg/dL AST 24 (13-39) U/L ALT 13 (7-52) U/L Alkaline Phosphatase 87 (34-104) U/L Troponin I 0.03 (<0.04) ng/mL B-Natriuretic Peptide ( - 100) pg/mL Total Protein 7.4 (6.4-8.9) g/dL Albumin 3.7 (3.2-5.2) g/dL Globulin 3.7 (2-4) g/dL Albumin/Globulin Ratio 1.0 (1-3) TSH 2.72 (0.34-5.60) mcIU/mL 04/11/17 Range/Units 15:50 WBC (3.5-10.8) 10^3/ul RBC (4.0-5.4) 10^6/ul Hgb (14.0-18.0) g/dl Hct (42-52) % MCV (80-94) fL MCH (27-31) pg MCHC (31-36) g/dl RDW (10.5-15) % Plt Count (150-450) 10^3/ul MPV (7.4-10.4) um3 Neut % (Auto) (38-83) % Lymph % (Auto) (25-47) % [place] % (Auto) (1-9) % Eos % (Auto) (0-6) % Baso % (Auto) (0-2) % Absolute Neuts (auto) (1.5-7.7) 10^3/ul Absolute Lymphs (auto) (1.0-4.8) 10^3/ul Absolute Monos (auto) (0-0.8) 10^3/ul Absolute Eos (auto) (0-0.6) 10^3/ul Absolute Basos (auto) (0-0.2) 10^3/ul Absolute Nucleated RBC 10^3/ul Nucleated RBC % Sodium (133-145) mmol/L Potassium (3.5-5.0) mmol/L Chloride (101-111) mmol/L Carbon Dioxide (22-32) mmol/L Anion Gap (2-11) mmol/L BUN (6-24) mg/dL Creatinine (0.67-1.17) mg/dL Est GFR ( Amer) (>60) Est GFR (Non-Af Amer) (>60) BUN/Creatinine Ratio (8-20) Glucose (70-100) mg/dL Lactic Acid (0.5-2.0) mmol/L Calcium (8.6-10.3) mg/dL Magnesium (1.9-2.7) mg/dL Total Bilirubin (0.2-1.0) mg/dL AST (13-39) U/L ALT (7-52) U/L Alkaline Phosphatase (34-104) U/L Troponin I (<0.04) ng/mL B-Natriuretic Peptide 78 ( - 100) pg/mL Total Protein (6.4-8.9) g/dL Albumin (3.2-5.2) g/dL Globulin (2-4) g/dL Albumin/Globulin Ratio (1-3) TSH (0.34-5.60) mcIU/mL Result Diagrams: 04/11/17 15:50 04/11/17 15:50 Lab Statement: Any lab studies that have been ordered have been reviewed, and results considered in the medical decision making process. - EKG 1259 EKG Interpretation: Paced. 81 bpm Lower Extremity Course/Dx - Course Course Of Treatment: Mr. Barfield is quite dehydrated and has a low ejection fraction. I think he needs to be rehydrated slowly on OBV. - Diagnoses Provider Diagnoses: Severe dehydration - Physician Notifications Discussed Care of Patient With: Dr. Escobar (Hospitalist) @ 1708 - Will come see pt. Dr. Escobar (Hospitalist) @ 1732 - Will admit pt Discharge - Discharge Plan Condition: Stable Disposition: ADMITTED TO [facility] documentation as recorded by the Paulo alegria Alok accurately reflects the service I personally performed and the decisions made by me, Mango Earl MD.
[2017-04-12] MEDS ORDERED: NS 0.9% 250 ML* 250 ML IV ONE (01:00)
--- NOTE | 2017-04-12 01:03 | HP ---
HOSPITAL MEDICINE HISTORY AND PHYSICAL: DATE OF ADMISSION: 04/11/17 PRIMARY CARE PHYSICIAN: Dr. Loomis. ATTENDING PHYSICIAN: MARY Huang (dictation provided by Sheila Ramos NP) . CHIEF COMPLAINT: Weakness. HISTORY OF PRESENT ILLNESS: Mr. Barfield is a 66-year-old male with past medical history of morbid obesity, chronic systolic congestive heart failure with an EF of 20% to 25% and recent discovery of sick sinus syndrome with sinus pauses requiring placement of pacemaker. Mr. Barfield was in our hospital from 03/26/17 to 03/30/17 being treated for rhabdomyolysis after a fall when it was discovered that he had sick sinus syndrome and was transferred to [facility] in [place] for placement of a biventricular pacemaker. Mr. Barfield states that he actually got a regular pacemaker, but those records from [place] have not been forwarded to us yet. Regardless, he was discharged to home yesterday and states that he was able to walk and was doing okay. However, this morning per the report, [facility] came to see him and found that he was unable to ambulate and therefore requested that he come to the emergency room for evaluation. Mr. Barfield denies this characterization of the events and states that he was not asked to ambulate at all and did not understand why he was required to come to the emergency room when all he needed was a little help moving his legs off the bed. He denies other complaints including chest pain, shortness of breath, nausea, abdominal pain. His legs are swollen and red, but he states they actually are "the best they have ever looked." He denies any fevers. In the emergency room, Mr. Barfield was found to have white blood cell count elevated at 15. He has a sodium of 127, potassium of 5.4, BUN and creatinine are elevated at 32 and 2.54 respectively. His troponin is normal at 0.03. His BNP is 78. PAST MEDICAL HISTORY: 1. History of sick sinus syndrome with placement of pacemaker. 2. Systolic congestive heart failure, chronic, ejection fraction of 20% to 25%. 3. Morbid obesity. 4. AFib. 5. Hypertension. MEDICATIONS: At the time of discharge from our hospital on 03/30/17 were: 1. Tylenol p.r.n. 2. Maalox p.r.n. 3. Aspirin 81 mg p.o. daily. 4. Captopril 6.25 mg p.o. 3 times daily. 5. Pradaxa 150 mg p.o. twice daily. 6. Nicotine inhaler p.r.n. 7. Colace 100 mg p.o. b.i.d. p.r.n. 8. Zofran p.r.n. 9. Percocet p.r.n. 10. Senna 1 tab p.r.n. The patient is unable to provide a clear description of his medication and will be getting a list from [facility] tomorrow to verify that these are unchanged. ALLERGIES: No known drug allergies. FAMILY HISTORY: The patient reports his mom, dad, and sister all had coronary artery disease. SOCIAL HISTORY: The patient is a pack a day smoker. He denies alcohol or drug use. He reports that his niece, Dafne Ruffin, would be his healthcare proxy, her number is [phone]. REVIEW OF SYSTEMS: A 14-point review of systems was completed with Mr. Barfield and all those not mentioned above were negative. PHYSICAL EXAMINATION GENERAL: Mr. Barfield is sitting up in the bed. He is in no acute distress. VITAL SIGNS: Temperature 98.8, heart rate 90, respiratory rate 23, O2 saturation 99% on room air, blood pressure was running as low as 64/30 in the emergency room, is currently 83/65. LUNGS: Diminished due to the patient's body habitus, but no crackles, rales, or rhonchi and wheezes are appreciated. HEART: S1, S2. No murmur, rub, or gallop and regular. ABDOMEN: Soft, nontender with bowel sounds positive x4. EXTREMITIES: Positive for 2 to 3+ edema. The patient's extremities are red to purple in color, but there is no drainage. The patient states that they "look better than they have in a long time." NEURO: He is alert, he is oriented x3. He moves all extremities equally. There is no facial asymmetry or focal weakness. Extraocular movements are intact. SKIN: Intact. No open areas to the legs are noted. LABORATORY DATA/DIAGNOSTIC STUDIES: WBC 15.0, hemoglobin 13.5, hematocrit 42, platelet count 317. Sodium 127, potassium 5.4, chloride 94, serum bicarbonate 22, BUN 32, creatinine 2.54, glucose 103, lactic acid 1.5. Troponin 0.03. BNP 78. ASSESSMENT: Mr. Barfield is a 66-year-old male with past medical history of chronic systolic congestive heart failure, morbid obesity, atrial fibrillation, and recent identification of sick sinus syndrome requiring pacemaker placement. He was discharged home from [place] yesterday and today was found to be too weak to ambulate independently and therefore was brought to the emergency room where it was found that he was likely dehydrated with acute kidney injury. Our plans are for observation in the hospital for the followin. Dehydration with acute kidney injury: The patient's labs with his hyponatremia, hyperkalemia, and acute kidney injury as well as his low BNP are all suggestive that he has been over diuresed and that he is no hypovolemic. Plan to hold his torsemide and chlorthalidone. He will have normal saline now and then maintenance fluids overnight. We will adjust that fluid rate based on the clinical course. We will recheck all his labs tomorrow. We will dose all medications renally and I plan to hold lisinopril in the setting of acute kidney injury. 2. Chronic systolic congestive heart failure: Again, patient appears dry. He does have lower extremity edema. Plan to elevate bilateral lower extremities. 3. Question of cellulitis to bilateral lower extremities: The patient has no open areas or drainage. His legs are quite red to actually almost purple. Plan to elevate extremities all the times but I do not plan to start antibiotics yet as I am not convinced that this is actually reflective of any cellulitis. Plan to re-evaluate in AM. 4. DVT prophylaxis with heparin subcu. 5. Disposition will be to the medical floor. TIME SPENT: Approximately 60 minutes were spent on the admission of this patient, more than half the time spent with the patient at the bedside reviewing the events leading up to this hospitalization, performing the physical examination, and reviewing the plan of care. SHEILA RAMOS NP [id number]/[facility] #: [id number] MONI
[2017-04-12 07:46] LABS: Hematocrit 39 % (42-52); Hemoglobin 12.8 g/dl (14.0-18.0); Mean Corpuscular HGB Conc 33 g/dl (31-36); Mean Corpuscular Hemoglobin 28 pg (27-31); Mean Corpuscular Volume 86 fL (80-94); Mean Platelet Volume 9 um3 (7.4-10.4); Red Blood Count 4.54 10^6/ul (4.0-5.4); Red Cell Distribution Width 14 % (10.5-15); White Blood Count 8.8 10^3/ul (3.5-10.8)
[2017-04-12 08:00] LABS: BUN/Creatinine Ratio 23.7 (8-20); Calcium 8.7 mg/dL (8.6-10.3); EGFR African American 83.2 (>60); EGFR Non-African American 64.7 (>60); Potassium 4.1 mmol/L (3.5-5.0)
[2017-04-12] MEDS ORDERED: Acetaminophen TAB* 325 MG PO PRN (08:48)
[2017-04-12] MEDS ORDERED: Polyethylene Glycol 3350* 17 GM PACKET PO SCH (09:00)
[2017-04-12] MEDS: CMCS Dabigatran CAP(NF) 150 MG CAP PO SCH (09:06)
--- NOTE | 2017-04-12 11:19 | PN ---
Subjective Date of Service: 04/12/17 Interval History: Mr. Barfield states that he is feeling great this morning and is eager to be discharged. He denies chest pain, SOB, nausea, or abdominal pain. Objective Active Medications: Acetaminophen (Tylenol Tab*) 650 mg PO Q6H PRN Dabigatran (Pradaxa Cap(Nf)) 150 mg PO BID [facility] Docusate Sodium (Colace Cap*) 100 mg PO BID PRN Sodium Chloride (Ns 0.9% 1000 Ml*) 1,000 mls @ 75 mls/hr IV PER RATE [facility] Melatonin (Melatonin (Nf)) 3 mg PO BEDTIME PRN Miconazole Nitrate (Monistat 2%*) 1 applic TOPICAL BID [facility] Ondansetron HCl (Zofran Inj*) 4 mg IV Q6H PRN Polyethylene Glycol/Electrolytes (Miralax*) 17 gm PO DAILY [facility] Vital Signs 04/11/17 04/11/17 04/11/17 17:30 18:00 18:15 Temperature Pulse Rate 88 93 95 Respiratory 26 26 27 Rate Blood Pressure 90/28 79/63 87/71 (mmHg) O2 Sat by Pulse 99 99 98 Oximetry 04/11/17 04/11/17 04/11/17 18:18 18:30 19:00 Temperature Pulse Rate 88 Respiratory 25 24 26 Rate Blood Pressure 97/63 94/64 64/30 (mmHg) O2 Sat by Pulse 99 Oximetry 04/11/17 04/11/17 04/11/17 19:06 19:30 20:21 Temperature 97.4 F Pulse Rate 93 91 Respiratory 23 25 20 Rate Blood Pressure 83/65 133/102 94/58 (mmHg) O2 Sat by Pulse 98 99 Oximetry 04/11/17 04/11/17 04/12/17 23:00 23:30 00:40 Temperature 98.3 F Pulse Rate 92 Respiratory 20 Rate Blood Pressure 73/48 82/46 90/58 (mmHg) O2 Sat by Pulse 99 Oximetry 04/12/17 04/12/17 03:44 07:16 Temperature 98.9 F 97.6 F Pulse Rate 85 82 Respiratory 18 Rate Blood Pressure 100/52 90/72 (mmHg) O2 Sat by Pulse 93 95 Oximetry Oxygen Devices in Use Now: None Appearance: Obese male lying in bed in NAD Eyes: No Scleral Icterus Ears/Nose/Mouth/Throat: Mucous Membranes Moist Neck: Trachea Midline Respiratory: Symmetrical Chest Expansion and Respiratory Effort, Clear to Auscultation Cardiovascular: NL Sounds; No Murmurs; No JVD, No Edema Abdominal: NL Sounds; No Tenderness; No Distention Extremities: No Edema Skin: No Rash or Ulcers Neurological: Alert and Oriented x 3, NL Muscle Strength and Tone Nutrition: Taking PO's Result Diagrams: 04/12/17 07:22 04/12/17 07:22 Additional Lab and Data: Lab Results 04/11/17 04/11/17 04/11/17 Range/Units 15:50 15:50 15:50 WBC 15.0 H (3.5-10.8) 10^3/ul RBC 4.88 (4.0-5.4) 10^6/ul Hgb 13.5 L (14.0-18.0) g/dl Hct 42 (42-52) % MCV 86 (80-94) fL MCH 28 (27-31) pg MCHC 32 (31-36) g/dl RDW 14 (10.5-15) % Plt Count 317 (150-450) 10^3/ul MPV 9 (7.4-10.4) um3 Neut % (Auto) 86.7 H (38-83) % Lymph % (Auto) 6.3 L (25-47) % [place] % (Auto) 5.6 (1-9) % Eos % (Auto) 1.0 (0-6) % Baso % (Auto) 0.4 (0-2) % Absolute Neuts (auto) 13.0 H (1.5-7.7) 10^3/ul Absolute Lymphs (auto) 0.9 L (1.0-4.8) 10^3/ul Absolute Monos (auto) 0.8 (0-0.8) 10^3/ul Absolute Eos (auto) 0.1 (0-0.6) 10^3/ul Absolute Basos (auto) 0.1 (0-0.2) 10^3/ul Absolute Nucleated RBC 0 10^3/ul Nucleated RBC % 0 Sodium 127 L (133-145) mmol/L Potassium 5.4 H (3.5-5.0) mmol/L Chloride 94 L (101-111) mmol/L Carbon Dioxide 22 (22-32) mmol/L Anion Gap 11 (2-11) mmol/L BUN 32 H (6-24) mg/dL Creatinine 2.54 H (0.67-1.17) mg/dL Est GFR ( Amer) 33.0 (>60) Est GFR (Non-Af Amer) 25.7 (>60) BUN/Creatinine Ratio 12.6 (8-20) Glucose 103 H (70-100) mg/dL Lactic Acid 1.5 (0.5-2.0) mmol/L Calcium 9.6 (8.6-10.3) mg/dL Magnesium 2.1 (1.9-2.7) mg/dL Total Bilirubin 0.70 (0.2-1.0) mg/dL AST 24 (13-39) U/L ALT 13 (7-52) U/L Alkaline Phosphatase 87 (34-104) U/L Troponin I 0.03 (<0.04) ng/mL B-Natriuretic Peptide ( - 100) pg/mL Total Protein 7.4 (6.4-8.9) g/dL Albumin 3.7 (3.2-5.2) g/dL Globulin 3.7 (2-4) g/dL Albumin/Globulin Ratio 1.0 (1-3) TSH 2.72 (0.34-5.60) mcIU/mL / Range/Units 15:50 WBC (3.5-10.8) 10^3/ul RBC (4.0-5.4) 10^6/ul Hgb (14.0-18.0) g/dl Hct (42-52) % MCV (80-94) fL MCH (27-31) pg MCHC (31-36) g/dl RDW (10.5-15) % Plt Count (150-450) 10^3/ul MPV (7.4-10.4) um3 Neut % (Auto) (38-83) % Lymph % (Auto) (25-47) % [place] % (Auto) (1-9) % Eos % (Auto) (0-6) % Baso % (Auto) (0-2) % Absolute Neuts (auto) (1.5-7.7) 10^3/ul Absolute Lymphs (auto) (1.0-4.8) 10^3/ul Absolute Monos (auto) (0-0.8) 10^3/ul Absolute Eos (auto) (0-0.6) 10^3/ul Absolute Basos (auto) (0-0.2) 10^3/ul Absolute Nucleated RBC 10^3/ul Nucleated RBC % Sodium (133-145) mmol/L Potassium (3.5-5.0) mmol/L Chloride (101-111) mmol/L Carbon Dioxide (22-32) mmol/L Anion Gap (2-11) mmol/L BUN (6-24) mg/dL Creatinine (0.67-1.17) mg/dL Est GFR ( Amer) (>60) Est GFR (Non-Af Amer) (>60) BUN/Creatinine Ratio (8-20) Glucose (70-100) mg/dL Lactic Acid (0.5-2.0) mmol/L Calcium (8.6-10.3) mg/dL Magnesium (1.9-2.7) mg/dL Total Bilirubin (0.2-1.0) mg/dL AST (13-39) U/L ALT (7-52) U/L Alkaline Phosphatase (34-104) U/L Troponin I (<0.04) ng/mL B-Natriuretic Peptide 78 ( - 100) pg/mL Total Protein (6.4-8.9) g/dL Albumin (3.2-5.2) g/dL Globulin (2-4) g/dL Albumin/Globulin Ratio (1-3) TSH (0.34-5.60) mcIU/mL Assess/Plan/Problems-Billing Assessment: Mr. Barfield is a 66 yo male with a PMH of obesity, recent pacemaker placement for sick sinus syndrome, and chronic lower extremity edema who was damitted on 04/11/17 with concern for dehydration and weakness. - Patient Problems (1) ERSI (acute kidney injury) Comment: Resolved after hydration. (2) Chronic systolic (congestive) heart failure Comment: Resume chlorthalidone and hold torsemide but patient will need close follow up of labs, scheduled for Saturday, and with his PCP to assess volume status. Continue coreg and lisinopril. (3) Afib Comment: S/p pacemaker, continue pradaxa. (4) Full code status (5) DVT prophylaxis Comment: heparin sq.
[2017-04-12 18:02] VITALS: BP 91/53
--- NOTE | 2017-04-13 04:02 | DS ---
HOSPITAL MEDICINE DISCHARGE SUMMARY: DATE OF ADMISSION: 04/11/17 DATE OF DISCHARGE: 04/12/17 PRIMARY CARE PHYSICIAN: Dr. Loomis. ATTENDING PHYSICIAN: Dr. Vicente Bowman* (dictation provided by Sheila Ramos NP ). PRIMARY DIAGNOSIS: Acute kidney injury secondary to dehydration from over diuresis. SECONDARY DIAGNOSES: 1. Chronic systolic congestive heart failure. 2. Chronic bilateral lower extremity edema. 3. History of sick sinus syndrome with purulent pacemaker placement. 4. Morbid obesity. 5. Atrial fibrillation. 6. Hypertension. MEDICATIONS AT THE TIME OF DISCHARGE: 1. Tylenol p.r.n. 2. Maalox p.r.n. 3. Aspirin 81 mg p.o. daily. 4. Captopril. 5. Carvedilol 6.25 mg p.o. b.i.d. 6. Chlorthalidone 12.5 mg p.o. daily. 7. Lisinopril 5 mg p.o. daily. 8. Dabigatran 150 mg p.o. b.i.d. 9. MiraLAX 17 g p.o. daily. HOSPITAL COURSE: Mr. Barfield is a 66-year-old male with past medical history as outlined above who was recently admitted to our hospital who was found to have sick sinus syndrome and sent to [facility] for pacemaker placement. The patient was discharged to home on 04/10/17. On 04/11/17, the patient was visited by [facility], who felt that he was unsafe and unable to transfer independently and therefore recommended that he come to the emergency room. Mr. Barfield states that there was no issue with his ambulation but that he simply asked for some assistance getting out of the chair as he is not able to use his left upper extremity due to recent pacemaker placement. Regardless, the patient presented to the emergency room and was found to have dehydration with a white blood cell count of 15, sodium of 127, potassium 5.4, BUN 32, and creatinine 2.54. It was suspected that his acute kidney injury and other lab abnormalities were secondary to over diuresis in the setting of severe bilateral lower extremity edema and congestive heart failure. Mr. Barfield was admitted to the hospital. Torsemide, chlorthalidone and lisinopril were held and he was provided with intravenous hydration. With this , his laboratory abnormalities have resolved. His sodium was 131, his potassium was 4.1, his BUN is 27, his creatinine is 1.14. He is doing very well and he has no complaints. He has been assessed by physical therapy to be independent with ambulation. Plans are to hold Mr. Barfield's torsemide but continue him on chlorthalidone. I have recommended that he follow up with labs on Saturday, which will be drawn by [facility]. Those labs will be forwarded to Dr. Loomis's office. Patient is interested in finding a new primary care physician and our staff will be working to arrange this for him prior to discharge. DISPOSITION: Home. DIET: Low salt. ACTIVITY: As tolerated with precautions for his left arm with the pacemaker. FOLLOWUP PLANS: 1. Please follow up for basic metabolic panel on Saturday with results forwarded to Dr. Loomis. 2. Please follow up next week either with Dr. Loomis or with a new primary care physician. TIME SPENT: Approximately 60 minutes were spent on the discharge of this patient, more than half the time spent with the patient at the bedside reviewing the events leading up to this hospitalization, performing the physical examination, and reviewing my plan of care. SHEILA RAMOS NP CC: Dr. Loomis * [id number]/[facility] #: [id number] MTDD
== END 2017-04-12 18:15 | disposition home or self-care (01) ==
LOC: ED 12:42 → MED 17:12
PROVIDERS: ADMIT Hospitalist; ATTEND Internal Medicine
DX: N17.9 Acute kidney failure, unspecified (principal); E86.0 Dehydration; I11.0 Hypertensive heart disease with heart failure; I50.22 Chronic systolic (congestive) heart failure; R60.9 Edema, unspecified; Z95.0 Presence of cardiac pacemaker; E66.01 Morbid (severe) obesity due to excess calories; I48.91 Unspecified atrial fibrillation; Z79.899 Other long term (current) drug therapy; Z79.01 Long term (current) use of anticoagulants; F17.210 Nicotine dependence, cigarettes, uncomplicated
CPT/HCPCS: 36415; 80048; 80053; 83605; 83735; 83880; 84443; 84484; 85025; 93005; 96360; 99284; A9270-GY; G0378; G8978-GP-CI; G8979-GP-CI; G8980-GP-CI; G8987-GO-CJ; G8988-GO-CI

== ENCOUNTER 2017-04-15 09:43 | Inpatient (IN) | payer MEDICARE ==
[2017-04-15 10:13] LABS: Hematocrit 41 % (42-52); Hemoglobin 13.2 g/dl (14.0-18.0); Mean Corpuscular HGB Conc 33 g/dl (31-36); Mean Corpuscular Hemoglobin 28 pg (27-31); Mean Corpuscular Volume 86 fL (80-94); Mean Platelet Volume 9 um3 (7.4-10.4); Red Blood Count 4.75 10^6/ul (4.0-5.4); Red Cell Distribution Width 14 % (10.5-15); White Blood Count 10.2 10^3/ul (3.5-10.8)
[2017-04-15 10:27] LABS: Albumin 3.3 g/dL (3.2-5.2); C Reactive Protein 12.34 mg/L (< 5.00); Calcium 8.9 mg/dL (8.6-10.3); EGFR African American 102.6 (>60); EGFR Non-African American 79.8 (>60); Globulin 3.2 g/dL (2-4); Magnesium 1.7 mg/dL (1.9-2.7); Potassium 4.2 mmol/L (3.5-5.0); Total Bilirubin 0.6 mg/dL (0.2-1.0); Total Protein 6.5 g/dL (6.4-8.9)
--- NOTE | 2017-04-15 10:32 | RAD ---
Indication: Weakness. Fall. Comparison: No relevant prior exams available on the [facility] PACS for comparison. Technique: Upright AP 1021 hours Report: RIGHT ventricular and coronary sinus level pacemaker device leads extend from LEFT chest wall control unit new compared with the prior exam. Unchanged cardiomegaly. Unremarkable central pulmonary vasculature and mediastinal contours. Clear lungs and pleural spaces. Negative for pneumothorax. No thoracic fractures evident within limits of a portable AP chest radiograph. IMPRESSION: Cardiomegaly without evidence for pulmonary edema. No evidence for acute intrathoracic disease.
[2017-04-15 10:37] LABS: Troponin I 0.04 ng/mL (<0.04)
[2017-04-15 11:03] LABS: TSH (Thyroid Stimulating Horm) 2.03 mcIU/mL (0.34-5.60)
[2017-04-15] MEDS ORDERED: NS 0.9% 250 ML* 250 ML IV ONE (12:25)
--- NOTE | 2017-04-15 15:26 | HP ---
HISTORY AND PHYSICAL: DATE OF ADMISSION: 04/15/17 - ROOM #422 PRIMARY CARE PHYSICIAN: Dr. Loomis CHIEF COMPLAINT: Fall. HISTORY OF PRESENT ILLNESS: Mr. Barfield is a 66-year-old man with past medical history of hypertension, morbid obesity, AFib, on dabigatran, sick sinus syndrome, status post recent pacemaker placement, systolic CHF with an EF of 20-25%, MARINO, chronic lower extremity edema, who presents to the hospital after a fall. The patient was just discharged from the hospital on after he was admitted for dehydration, ERIS, likely due to overdiuresis after discharge from [facility] for pacemaker placement. The patient was given some IV fluids and monitored overnight and discharged home. He states that he had been doing okay, taking his medications as prescribed. This morning he was walking to get his coffee, he suddenly felt his right knee buckle under him. He eased himself to the floor on to his knees; however, after this he could not get up, so he was able to get to a phone and call a family member who came over, then EMS was called and the patient was brought to the emergency room for further evaluation. In the ED, the patient was noted to have a blood pressure of 90/40. Due to concern for possible hypotension and a fall, the hospitalist service was asked to consult for admission. PAST MEDICAL HISTORY: Hypertension; sick sinus syndrome, status post pacemaker placement earlier this month; AFib, on Pradaxa; morbid obesity; systolic congestive heart failure with an EF of 20-25%; MARINO. PAST SURGICAL HISTORY: Pacemaker placement. HOME MEDICATIONS: 1. Chlorthalidone 12.5 mg by mouth daily. 2. Coreg 6.25 mg by mouth 2 times daily. 3. MiraLAX 17 g by mouth daily. 4. Lisinopril 5 mg by mouth daily. 5. Pradaxa 150 mg by mouth 2 times daily. ALLERGIES: No known drug allergies. FAMILY HISTORY: Significant for mother, father and sister with CAD. SOCIAL HISTORY: The patient is a current smoker. He denies any alcohol or illicit drug use. REVIEW OF SYSTEMS: A 12-point review of systems is negative except as that noted in the HPI. PHYSICAL EXAMINATION GENERAL: The patient is a morbidly obese male, lying in bed, in no apparent distress. VITAL SIGNS: On admission, temperature 97.0, pulse rate of 84, respiratory rate of 19, O2 saturation 94% on room air, blood pressure 90/40. HEENT: Moist mucous membranes. NECK: No cervical adenopathy. LUNGS: Clear to auscultation bilaterally. No wheezes, rales or rhonchi. CARDIOVASCULAR: Regular rate and rhythm. S1, S2 present. No murmurs, gallops or rubs. ABDOMEN: Obese, soft, nontender, nondistended. Bowel sounds are positive. EXTREMITIES: The patient with bilateral lower extremity edema. Chronic skin changes. NEUROLOGIC: The patient is alert and oriented x3. No focal neurological deficits. LABS AND DIAGNOSTICS: White blood cell count of 10.2, hematocrit of 41, platelets of 346. Sodium of 128, potassium 4.2, chloride 95, carbon dioxide of 24, BUN 19, creatinine 0.95, lactic acid 2.3, magnesium 1.7. LFTs within normal limits. CK of 107, troponin of 0.04, CRP of 12.34, BNP of 107, TSH of 2.03. Chest x-ray, personally reviewed, shows cardiomegaly. No interstitial edema. EKG, personally reviewed, V-paced. ASSESSMENT AND PLAN: Mechanical fall in a 66-year-old man with a past medical history of hypertension, atrial fibrillation, sick sinus syndrome, status post pacemaker placement, morbid obesity, chronic systolic congestive heart failure, and obstructive sleep apnea. 1. Fall. I do not think this was a syncopal episode or related to any cardiac issues. On the previous admission earlier this month, the patient was noted to have a tibial plateau fracture, was evaluated by Orthopedics and the plan was for the patient to wear a knee immobilizer at all times when ambulating and to follow up with Dr. Byrne in the office. The patient has not been using a knee immobilizer, which I suspect contributed to his fall. The patient's labs are largely unremarkable. His lactic acid is 2.3 and his sodium is 128. He may be mildly dehydrated. We will give a small 250 cc bolus in the ED and just encourage p.o. intake. We will restart the patient on his home medications beginning tomorrow. We will order Physical Therapy evaluation. 2. Hypertension. 3. Chronic systolic congestive heart failure. The patient does have some peripheral edema, but states this has been about his baseline. We will continue Coreg beginning tonight and lisinopril and chlorthalidone beginning tomorrow. We will recheck a BMP in the morning. 4. Atrial fibrillation. Continue Coreg and Pradaxa. 5. Lower extremity wounds. We will continue recommendations from Wound Care from early admission with calcium alginate, Telfa and rolled gauze. 6. DVT prophylaxis, Pradaxa. 7. Code status. The patient is a full code. TIME SPENT: Total time spent on this admission, 40 minutes, with over half the time spent [id number] with the patient in counseling and coordinating care. CC: Dr. Loomis * [id number]/[facility] #: [id number] MONI
--- NOTE | 2017-04-15 17:16 | ED ---
Alysha Kwon Auryana, scribed for Ino Eaton MD on 04/15/17 at 0955 . Neurological HPI - HPI Summary HPI Summary: 66 year old male GEORGE s/p fall this morning. Patient reports that he was walking with a walker from the kitchen to the living room when his legs gave out. He states that his legs are weak but denies any SOB, CP, or dizziness. On arrival, BP is fluctuating between high and low - but patient is asymptomatic. Recent admission for low blood pressure. PMHx is significant for obesity, systolic CHF (ejection fraction of 20-25%), HTN, TIA, and atrial fibrillation. FHx of CAD. SHx is significant for tobacco use, but no alcohol or recreational drug use. - History of Current Complaint Chief Complaint: EDGeneral Stated Complaint: FALL Time Seen by Provider: 04/15/17 10:50 Hx Obtained From: Patient Onset/Duration: Sudden Onset Timing: Sudden Onset Onset Severity: Mild Current Severity: Mild Pain Intensity: 0 - no pain Pain Scale Used: 0-10 Numeric Character: Weak - LE WEAKNESS Aggravating: Unknown Alleviating: Unknown Associated Signs and Symptoms: Negative: Negative - unsteady BP, Dizziness, Pain , Chest Pain, Shortness of Breath Similar Episode/Dx as: SEE HPI - Additional Pertinent History Primary Care Physician: SHELDON - Allergy/Home Medications Allergies/Adverse Reactions: Allergies Allergy/AdvReac Type Severity Reaction Status Date / Time No Known Allergies Allergy Verified 03/26/17 19:40 PMH/Surg Hx/FS Hx/Imm Hx Endocrine/Hematology History: Denies: Hx Anticoagulant Therapy, Hx Diabetes Cardiovascular History: Reports: Hx Atrial Fibrillation, Hx Hypertension, Hx Pacemaker/ICD - TEMP PACER 03/29/17., Hx Valvular Heart Disease - mild mitral insufficiency, dilated (right) atrium trace tricuspid insuffici Respiratory History: Reports: Other Respiratory Problems/Disorders - smoker Denies: Hx Chronic Obstructive Pulmonary Disease (COPD) History: Denies: Hx Dialysis Musculoskeletal History: Denies: Hx Rheumatoid Arthritis, Hx Back Problems, Hx Osteoporosis Sensory History: Reports: Hx Hearing Problem - [place] Denies: Hx Contacts or Glasses, Hx Hearing Aid Opthamlomology History: Denies: Hx Contacts or Glasses Neurological History: Reports: Hx Spinal Cord Injury - "PT STATES "FROM LIFTING ", Other Neuro Impairments/Disorders - TIA'S Denies: Hx Dementia, Hx Seizures Psychiatric History: Denies: Hx Panic Disorder - Surgical History Surgery Procedure, Year, and Place: CERVICAL FUSION IN THE Hx Anesthesia Reactions: No - Immunization History Date of Tetanus Vaccine: unk - Family History Known Family History: Positive: Cardiac Disease - CAD, Hypertension - Social History Occupation: Disabled Lives: Assisted Living Alcohol Use: None Substance Use Type: Reports: None Hx Tobacco Use: Yes Smoking Status (MU): Current Every Day Smoker Review of Systems Constitutional: Negative - no dizziness Negative: Fever Eyes: Negative ENT: Negative Positive: Other - unstable BP. Negative: Chest Pain Respiratory: Negative Negative: Shortness Of Breath Gastrointestinal: Negative Genitourinary: Negative Musculoskeletal: Negative Skin: Negative Positive: Weakness - bilateral LE Psychological: Normal All Other Systems Reviewed And Are Negative: Yes Physical Exam - Summary Physical Exam Summary: VITAL SIGNS: Reviewed. GENERAL: Patient is a well developed and obese male who is lying comfortable in the stretcher. Patient is not in any acute respiratory distress. He denies any complaints now. HEAD AND FACE: No signs of trauma. No ecchymosis, hematomas or skull depressions. No sinus tenderness. EYES: PERRLA, EOMI x 2, No injected conjunctiva, no nystagmus. No photophobia. EARS: Hearing grossly intact. Ear canals and tympanic membranes are within normal limits. MOUTH: Oropharynx within normal limits. NECK: Supple, trachea is midline, no adenopathy, no JVD, no carotid bruit, no c- spine tenderness, neck with full ROM. No meningeal signs, no Kernig's or brudzinskis signs. CHEST: Symmetric, no tenderness at palpation LUNGS: Clear to auscultation bilaterally. No wheezing or crackles. CVS: Regular rate and rhythm, S1 and S2 present, no murmurs or gallops appreciated. ABDOMEN: Soft, non-tender. No signs of distention. No rebound no guarding, and no masses palpated. Bowel sounds are normal. EXTREMITIES: FROM in all major joints, no cyanosis or clubbing. Bilateral LE edema with brown discoloration - possibly due to chronic vascular insufficiency. NEURO: Alert and oriented x 3. No acute neurological deficits. Speech is normal and follows commands. SKIN: Dry and warm. Left side of chest - healing scar from pacemaker placement. Triage Information Reviewed: Yes Vital Signs Reviewed: Yes Diagnostics - Laboratory Result Diagrams: 04/15/17 10:00 04/15/17 10:00 Lab Statement: Any lab studies that have been ordered have been reviewed, and results considered in the medical decision making process. - Radiology CXR Xray Interpretation: Positive (See Comments) - IMPRESSION: Cardiomegaly without evidence for pulmonary edema. No evidence for acute intrathoracic disease. Radiology Interpretation Completed By: Radiologist - EKG 09:34 EKG Interpretation: ventricular paced EKG at 83 BPM Course/Dx - Course Course Of Treatment: 66 year old male BIBA s/p fall this morning. Patient reports that he was walking with a walker from the kitchen to the living room when his legs gave out. He states that his legs are weak but denies any SOB, CP , or dizziness. On arrival, BP is fluctuating between high and low - but patient is asymptomatic. Recent admission for low blood pressure. PMHx is significant for obesity, systolic CHF (ejection fraction of 20-25%), HTN, TIA, and atrial fibrillation. FHx of CAD. SHx is significant for tobacco use, but no alcohol or recreational drug use. Assessment/Plan: test results WNL, slight anemia, sodium 128, troponin 0.04, and CRP 12.3. CXR: cardiomegaly w/o pulmonary edema - NAD. EKG: show pacemaker paced EKG @83 BPM unchanged fromEKG 04/11/17. I tried to ambulate patient but he was very weak. Since patient has increase troponin, I disclosed physical exam and findings with Dr. Herron who accepted patient for admission. Patient continues to be hypotensive despite 2L fluids. BP 101/55 which is much improved from 90/40. - Diagnoses Provider Diagnoses: Hypotension, Elevated troponin, rule out acute coronary syndrome - Physician Notifications Discussed Care of Patient With: DR. HERRON Time Discussed With Above Provider: 11:10 - AGREES TO ADMIT Discharge - Discharge Plan Condition: Stable Disposition: ADMITTED TO [facility] documentation as recorded by the Alysha alegria Auryana accurately reflects the service I personally performed and the decisions made by me, Ino Eaton MD.
[2017-04-15] MEDS ORDERED: Carvedilol TAB* 6.25 MG PO SCH ×2 (21:00→21:18)
[2017-04-15] MEDS: Carvedilol TAB* 6.25 MG PO SCH (21:29)
[2017-04-15] MEDS: CMC:Dabigatran CAP(NF) 150 MG CAP PO SCH (21:29)
[2017-04-15] MEDS: Acetaminophen TAB* 325 MG PO PRN (21:50)
[2017-04-16 05:53] LABS: BUN/Creatinine Ratio 17.8 (8-20); Calcium 8.4 mg/dL (8.6-10.3); EGFR African American 139.1 (>60); EGFR Non-African American 108.2 (>60); Potassium 3.8 mmol/L (3.5-5.0)
[2017-04-16] MEDS: Polyethylene Glycol 3350* 17 GM PACKET PO SCH (08:36)
[2017-04-16] MEDS: Acetaminophen TAB* 325 MG PO PRN ×2 (08:36→16:05)
[2017-04-16] MEDS: CMC:Dabigatran CAP(NF) 150 MG CAP PO SCH ×2 (08:36→21:17)
[2017-04-16] MEDS: Carvedilol TAB* 6.25 MG PO SCH ×2 (08:36→21:18)
[2017-04-16] MEDS ORDERED: Chlorthalidone TAB* 50 MG PO SCH ×2 (09:00)
[2017-04-16] MEDS ORDERED: Lisinopril TAB* 5 MG PO SCH (09:00)
--- NOTE | 2017-04-16 15:23 | PN ---
Subjective Date of Service: 04/16/17 Interval History: Pt feels well. Seems to think that if he gets treated with diuretics his venous stasis edema will be treated and will "go away" Objective Active Medications: Acetaminophen (Tylenol Tab*) 650 mg PO Q6H PRN PRN Reason: PAIN Last Admin: 04/16/17 08:36 Dose: 650 mg Carvedilol (Coreg Tab*) 6.25 mg PO 0900,2100 [facility] Last Admin: 04/16/17 08:36 Dose: 6.25 mg Dabigatran (Pradaxa Cap(Nf)) 150 mg PO BID [facility] Last Admin: 04/16/17 08:36 Dose: 150 mg Polyethylene Glycol/Electrolytes (Miralax*) 17 gm PO DAILY [facility] Last Admin: 04/16/17 08:36 Dose: 17 gm Vital Signs 04/15/17 04/15/17 04/15/17 16:16 20:42 21:11 Temperature 98.1 F 97.7 F Pulse Rate 75 84 83 Respiratory 17 16 Rate Blood Pressure 101/55 85/58 93/52 (mmHg) O2 Sat by Pulse 99 100 Oximetry 04/15/17 04/16/17 04/16/17 21:59 00:09 04:14 Temperature 98.5 F 98.4 F Pulse Rate 74 81 Respiratory 17 16 16 Rate Blood Pressure 82/52 94/58 (mmHg) O2 Sat by Pulse 97 97 Oximetry 04/16/17 04/16/17 07:26 08:00 Temperature 97.8 F Pulse Rate 77 Respiratory 16 18 Rate Blood Pressure 87/58 (mmHg) O2 Sat by Pulse 97 Oximetry Oxygen Devices in Use Now: None Appearance: 66 yo M in nAD, AAOx3, poor historian, limited understanding of his illness, [place] Eyes: No Scleral Icterus, PERRLA Ears/Nose/Mouth/Throat: NL Teeth, Lips, Gums, Clear Oropharnyx, Mucous Membranes Moist Neck: NL Appearance and Movements; NL JVP, Trachea Midline Respiratory: Symmetrical Chest Expansion and Respiratory Effort, Clear to Auscultation Cardiovascular: NL Sounds; No Murmurs; No JVD, RRR, - - left upper chect, post pacer site with healing scar Abdominal: NL Sounds; No Tenderness; No Distention, No Hepatosplenomegaly Extremities: - - +2 venous stasis edema b/l Skin: No Nodules or Sclerosis, - - venous stasis skin discoloration and changes with small scattered aopen areas-2-3 on each leg-aftera ruptured lupe Neurological: Alert and Oriented x 3, NL Muscle Strength and Tone Result Diagrams: 04/15/17 10:00 04/16/17 05:07 Assess/Plan/Problems-Billing Assessment: 66 yo male with a PMH of obesity, recent pacemaker placement for sick sinus syndrome, and chronic lower extremity edema who was admitted on with concern for dehydration and weakness and ERIS, discharged on 04/12/17, now readmitted s/p fall. Pt has chronic r tibial plateau fx, noncompliant with wearing immobilizer - Patient Problems (1) Fall Comment: pt had not been wearing left knee immobilizer as recommended. He is markedly deconditioned and refused to be placed in STR last time. Pt agrees to STR now. PT/OT eval ongoing (2) Hypotension Comment: BP remains low off his home medications. He is asymptomatic. Hold fluids given his low EF. Monitor BP. (3) Chronic wound of extremity Comment: Wound care has recommended calcium alginate on the wounds covered with kerlix and dressings. Encourage leg elevation. wounds are small-ruptured bisters from venous stasis (4) Chronic systolic (congestive) heart failure Comment: off diuretics due to hyponatremia and hypotension (5) MARINO (obstructive sleep apnea) Comment: Pt is non-compliant with CPAP. (6) Hyponatremia Comment: holding chlorthalidione, monitor (7) Tibial plateau fracture Comment: most likely chronic based on his previous imaging with abnormal findings. Continue knee immobilizer while out of bed otherwise he does not need the immobilizer on. (8) Afib Comment: S/p pacemaker, continue pradaxa. (9) DVT prophylaxis Comment: pradaxa Status and Disposition: inpatient, plan for STR in aM
[2017-04-16] MEDS: Magnesium Oxide TAB* 400 MG PO SCH (16:05)
[2017-04-17 07:31] VITALS: BP 105/65
[2017-04-17] MEDS: CMC:Dabigatran CAP(NF) 150 MG CAP PO SCH (08:52)
[2017-04-17] MEDS: Magnesium Oxide TAB* 400 MG PO SCH (08:52)
[2017-04-17] MEDS: Acetaminophen TAB* 325 MG PO PRN (08:52)
[2017-04-17] MEDS: Carvedilol TAB* 6.25 MG PO SCH (08:52)
[2017-04-17] MEDS: Polyethylene Glycol 3350* 17 GM PACKET PO SCH (08:52)
[2017-04-17 09:04] LABS: BUN/Creatinine Ratio 13.6 (8-20); Calcium 8.5 mg/dL (8.6-10.3); EGFR African American 156.3 (>60); EGFR Non-African American 121.5 (>60); Magnesium 1.7 mg/dL (1.9-2.7)
--- NOTE | 2017-04-17 12:19 | DS ---
DISCHARGE SUMMARY: DATE OF ADMISSION: 04/15/17. DATE OF DISCHARGE: 04/17/17. PRIMARY CARE PROVIDER: Dr. Loomis DISPOSITION: The patient is being transferred to [facility] facility for short-term rehabilitation. DISCHARGE DIAGNOSES: 1. Fall and generalized weakness, deconditioning. 2. Hyponatremia most likely due to over diuresis. SECONDARY DIAGNOSES: 1. History of atrial fibrillation, on Pradaxa. 2. Sick sinus syndrome, status post pacemaker placement within the past month, status post history of systolic congestive heart failure with ejection fraction of 20% to 25%. 3. Obstructive sleep apnea, noncompliant with treatment. 4. History of chronic lower extremity edema due to venous stasis, dermatitis, and venous stasis edema. MEDICATIONS AT DISCHARGE: Include: 1. Mag-Ox 800 mg daily. 2. Polyethylene glycol 17 g daily. 3. Pradaxa 150 mg b.i.d. 4. Coreg 6.25 mg b.i.d. LABORATORY DATA AND STUDIES PERFORMED DURING THE HOSPITAL STAY: Included: On 04/17/17, sodium 127, potassium 4.0, chloride 102, carbon dioxide 27, BUN 9, creatinine 0.6, magnesium of 1.7. Brain natriuretic peptide was 107, C- reactive protein was 12.3 obtained on admission. Cortisol morning was noted to be 9.9 on 04/16/17, TSH was 2.03 on admission. CBC on admission showed white blood cell count 10.2, hemoglobin 13.2, hematocrit 41, platelets of 346. Chest x-ray obtained on admission. Impression: "Cardiomegaly without evidence of pulmonary edema. No evidence of acute intrathoracic disease." 1. After discharge to [facility], it was recommended for the patient to have basic metabolic panel drawn in approximately 5 days to follow up on hyponatremia. 2. Patient is recommended to have daily weight check and if his weight is above 3 pounds of his baseline to call primary care provider or physician at the facility. At that point, the patient may need to be restarted on diuretics. The patient's weight at discharge was 330 pounds 3 ounces. HOSPITALIZATION COURSE: Please note that this is patient's third hospital stay this month. Originally, he was admitted on 03/26/17. He was discharged on 05/11 after he was diagnosed sick sinus syndrome and atrial fibrillation and required a temporary pacemaker. He also was noted to have right tibial plateau fracture, which was thought to be most likely chronic after Dr. Byrne from Orthopedics evaluation. He was recommended to wear a knee immobilizer. On 04/11/17, patient was readmitted to our facility after he was noted to have generalized weakness and acute renal failure. At that point, he was noted to be status post permanent pacemaker inserted at [facility] in [place]. Patient's diuretics at that point were held and patient was placed on intravenous hydration. At that point, patient was noted to be markedly deconditioned and recommended a short-term rehabilitation placement, but he refused. He was discharged on 04/12/17. The current hospital stay occurred on 04/15/17 when the patient fell down, was unable to get up. He was also noted to be hyponatremic, mildly hypotensive. He was still at that point on chlorthalidone and ROLAND inhibitor. Those had to be held due to what appeared to be mostly likely over diuresis and hyponatremia due to chlorthalidone. Patient was evaluated by Physical Therapy and Occupational Therapy and noted to be a good candidate for short-term rehabilitation and at that point he agreed. Patient had a poor understanding of his medical condition and it appears that the patient could have used his diuretics for his chronic venous stasis edema in an attempt to "make it better; " not realizing that it caused acute renal failure in the previous admission. I had several conversations with the patient to continue to elevate his leg whenever possible. The patient was advised that his led edema does not necessarily need to be treated with diuretics and diuretics may cause a kidney injury if used in high of a dose. At this point, the patient's ROLAND inhibitor and chlorthalidone are going to be held. Patient is recommended to have his weight checked on a daily basis and if it increases over 3 pounds to be reevaluated by physician to possibly restart diuresis. Patient has chronic venous stasis dermatitis and discoloration changes in both lower extremities. He has an occasional blister that would rupture. On the day of discharge, his blisters have actually healed and there is no open wounds on the day of discharge. PHYSICAL EXAMINATION: At the time of discharge, blood pressure 105/65, heart rate of 68 and regular, respiratory rate of 20, oxygen saturation 99% on room air, temperature 97.9. General: This is a very pleasant 66-year-old male who is in no acute distress. Awake, alert and oriented x3. HEENT: Head is atraumatic, normocephalic. Eyes: Pupils equal, round, reactive to light and accommodation. Oropharynx clear. Mucosa moist. Neck: Supple. No JVD. No bruits bilaterally. Cardiovascular: Regular rate and rhythm. No murmur. Respiratory: Clear to auscultation bilaterally. Abdomen: Soft and nontender. Bowel sounds present in all 4 quadrants. Extremities: There is +1 non- pitting pedal edema. Pulse are poorly palpable due to venous stasis skin changes that are present bilaterally. There is no clubbing or cyanosis. On evaluation of the skin, the patient has hardening of the skin due to chronic venous stasis dermatitis and chronic discoloration of bilateral lower extremities from the knee down. There are no open wounds on evaluation. On neuro evaluation, speech is clear. Cranial nerves II through XII grossly intact. Motor strength is 5/5 bilaterally. Please note that this discharge summary is a short summary of the patient's hospital stay. Please refer to further medical records for details. TIME SPENT: Approximately 40 minutes was spent on the patient's discharge. CC: [facility]; Dr. Loomis* [id number]/[facility] #: [id number] MTDD
== END 2017-04-17 13:15 | DRG 641 ==
LOC: ED 09:43 → MED 12:05
PROVIDERS: ADMIT Hospitalist; ATTEND Internal Medicine
DX: E87.1 Hypo-osmolality and hyponatremia (principal); I95.9 Hypotension, unspecified; I11.0 Hypertensive heart disease with heart failure; I49.5 Sick sinus syndrome; I50.20 Unspecified systolic (congestive) heart failure; Z68.42 Body mass index [BMI] 45.0-49.9, adult; I87.2 Venous insufficiency (chronic) (peripheral); R53.1 Weakness; W18.30XA Fall on same level, unspecified, initial encounter; Y92.009 Unspecified place in unspecified non-institutional (private) residence as the place of occurrence of the external cause; I48.91 Unspecified atrial fibrillation; Z79.01 Long term (current) use of anticoagulants; G47.33 Obstructive sleep apnea (adult) (pediatric); E66.01 Morbid (severe) obesity due to excess calories; Z95.0 Presence of cardiac pacemaker; Z79.899 Other long term (current) drug therapy; Z82.49 Family history of ischemic heart disease and other diseases of the circulatory system; F17.210 Nicotine dependence, cigarettes, uncomplicated; S82.144D Nondisplaced bicondylar fracture of right tibia, subsequent encounter for closed fracture with routine healing; X58.XXXD Exposure to other specified factors, subsequent encounter; Z91.19 Patient's noncompliance with other medical treatment and regimen
CPT/HCPCS: 36415; 71010; 80048; 80053; 82533; 82550; 83605; 83735; 83880; 84443; 84484; 85025; 85730; 86140; 87040; 93005; A9270-GY

== ENCOUNTER 2019-04-04 22:27 | Inpatient (IN) | payer MEDICARE ==
[2019-04-04] MEDS ORDERED: NS 0.9% 1000 ML** 2,000 ML IV ONE (23:05)
[2019-04-04] MEDS ORDERED: Tetan/Diph/Pertus SYR(Tdap)* 0.5 ML SYR(BOOSTRIX) use SYR IM ONE (23:05)
--- NOTE | 2019-04-04 23:05 | ED ---
Adult Trauma - HPI Summary HPI Summary: This patient is a 68 year old M presenting to [facility] with a chief complaint of a fall since 5 hours ago. He was in the kitchen and slipped on water. Patient was found on the ground in feces and urine after he was there for 4 hours. Patient reports pain in his buttocks, pain in his hips, abrasions in all his extremities , and bleeding from his genitals. Patient lives alone at [facility], an independent living facility. - History of Current Complaint Stated Complaint: FALL PER EMS Time Seen by Provider: 04/04/19 22:47 Hx Obtained From: Patient Mechanism of Injury: Fall Ambulatory at the Scene: No Onset/Duration: Started Hours Ago, Still Present Associated Signs & Symptoms: Positive: Other: - Pain in his buttocks, pain in his hips, abrasions in all his extremities, and bleeding from his genitals. - Additional Pertinent History Primary Care Physician: [id number] - Allergy/Home Medications Allergies/Adverse Reactions: Allergies Allergy/AdvReac Type Severity Reaction Status Date / Time No Known Allergies Allergy Verified 10/09/17 13:22 Home Medications: Home Medications Furosemide 40 mg PO DAILY 04/05/19 [History Confirmed 04/05/19] PMH/Surg Hx/FS Hx/Imm Hx Endocrine/Hematology History: Denies: Hx Anticoagulant Therapy, Hx Diabetes Cardiovascular History: Reports: Hx Atrial Fibrillation, Hx Hypertension, Hx Pacemaker/ICD - TEMP PACER 03/29/17., Hx Valvular Heart Disease - mild mitral insufficiency, dilated (right) atrium trace tricuspid insuffici Respiratory History: Reports: Other Respiratory Problems/Disorders - smoker Denies: Hx Chronic Obstructive Pulmonary Disease (COPD) History: Denies: Hx Dialysis Musculoskeletal History: Denies: Hx Rheumatoid Arthritis, Hx Back Problems, Hx Osteoporosis Sensory History: Reports: Hx Hearing Problem - KAIBAB Denies: Hx Contacts or Glasses, Hx Hearing Aid Opthamlomology History: Denies: Hx Contacts or Glasses Neurological History: Reports: Hx Spinal Cord Injury - "PT STATES "FROM LIFTING ", Other Neuro Impairments/Disorders - TIA'S Denies: Hx Dementia, Hx Seizures Psychiatric History: Denies: Hx Panic Disorder - Surgical History Surgery Procedure, Year, and Place: CERVICAL FUSION IN THE Hx Anesthesia Reactions: No - Immunization History Date of Tetanus Vaccine: unk - Family History Known Family History: Positive: Cardiac Disease - CAD, Hypertension - Social History Alcohol Use: None Substance Use Type: Reports: None Hx Tobacco Use: Yes Smoking Status (MU): Light Every Day Tobacco Smoker Type: Cigarettes Review of Systems Positive: other - Bleeding from genitals Positive: Other - Pain in buttocks and hips Positive: Other - Abrasions in all his extremities All Other Systems Reviewed And Are Negative: Yes Physical Exam - Summary Physical Exam Summary: VITAL SIGNS: Reviewed. GENERAL: Patient is a very unkempt, morbidly obese, and pale MALE who is lying comfortable in the stretcher. Patient is not in any acute respiratory distress. HEAD AND FACE: No signs of trauma. No ecchymosis, hematomas or skull depressions. No sinus tenderness. EYES: PERRLA, EOMI x 2, No injected conjunctiva, no nystagmus. EARS: Hearing grossly intact. Ear canals and tympanic membranes are within normal limits. MOUTH: Oropharynx within normal limits. NECK: Supple, trachea is midline, no adenopathy, no JVD, no carotid bruit, no c- spine tenderness, neck with full ROM CHEST: Symmetric, no tenderness at palpation LUNGS: Decreased breath sounds bilaterally. No wheezing or crackles. CVS: Distal heart sounds. ABDOMEN: Obese, non-tender. No rebound no guarding, and no masses palpated. Bowel sounds are normal. EXTREMITIES: FROM in all major joints, no edema, no cyanosis or clubbing. NEURO: Grossly nonfocal. SKIN: Abrasions over his left arm, no active bleeding. Bilateral LE edema left more than right. Severe venous stasis with chronic skin changes. Peeled skin over the left leg. Triage Information Reviewed: Yes Vital Signs On Initial Exam: Initial Vitals Temp Pulse Resp BP Pulse Ox 96.8 F 92 24 00/00 96 04/04/19 22:40 04/04/19 22:40 04/04/19 22:40 04/04/19 22:40 04/04/19 22:40 Vital Signs Reviewed: Yes Diagnostics - Laboratory Result Diagrams: 04/04/19 23:31 04/05/19 03:11 Lab Statement: Any lab studies that have been ordered have been reviewed, and results considered in the medical decision making process. - Radiology Chest X-Ray Radiology Interpretation Completed By: ED Physician Summary of Radiographic Findings: 01:30 - No acute process. Pending official report. Pelvis X-Ray Radiology Interpretation Completed By: ED Physician Summary of Radiographic Findings: 01:30 - Severe degenerative joint disease. Pending official report. - CT Cervical Spine CT CT Interpretation Completed By: Radiologist Summary of CT Findings: 01:25 - 1. No acute findings. 2. Incomplete bony ankylosis of C4-C7. 3. Multilevel degenerative spondylosis, greatest at C3-C4 level with moderate. spinal stenosis and moderate to severe bilateral neural foraminal narrowing. ED Physician has reviewed this imaging report. Brain CT CT Interpretation Completed By: Radiologist Summary of CT Findings: 01:18 - No acute intracranial abnormality. ED Physician has reviewed this imaging report. Abdomen/Pelvis CT CT Interpretation Completed By: Radiologist Summary of CT Findings: 03:03 - 1. Mildly distended gallbladder with gallstones and sludge. If clinically. indicated, further evaluation with ultrasound may be considered. 2. A punctate nonobstructing left renal stone. No hydronephrosis. 3. Colonic diverticulosis with no evidence of acute diverticulitis. 4. Osteoporosis. Degenerative changes in the spine. Diffuse narrowing of the. spinal canal. If clinically indicated, further evaluation with MRI of the. lumbar spine may be considered. 5. Severe degenerative changes in the bilateral hip joints, right greater than. the left. Bony exostosis left acetabulum and left iliac bone. ED Physician has reviewed this imaging report. - EKG 23:50 Cardiac Rate: Other Rate - Pacemaker at 74 bpm Re-Evaluation - Re-Evaluation 1 Re-Evaluation Time: 23:41 Change: Unchanged Comment: Examined the patient's back. He has superficial ulcers and redness over the upper thighs medially. Adult Trauma Course/Dx - Course Course Of Treatment: This patient is a 68 year old M presenting to [facility] with a chief complaint of a fall since 5 hours ago. I ran imaging including a Brain CT , cervical spine CT, chest x-ray, pelvix x-ray, and an EKG. I consulted with Dr. Lynn, hospitalist, who will admit the patient with dx of: fall, cellulitis, hyponatremia, renal insufficiency, and dehydration. - Diagnoses Provider Diagnoses: Fall, Cellulitis, Hyponatremia, Renal insufficiency, Dehydration - Physician Notifications Discussed Care Of Patient With: Justin Lynn - Hospitalist Time Discussed With Above Provider: 01:40 Instructed by Provider To: Admit As Inpatient - Critical Care Time Critical Care Time: 30-74 min - 70 minutes Discharge - Sign-Out/Discharge Documenting (check all that apply): Patient Departure - Admit Patient Received Moderate/Deep Sedation with Procedure: No - Discharge Plan Condition: Stable Disposition: ADMITTED TO [facility] - Billing Disposition and Condition Condition: STABLE Disposition: Admitted to [facility] - Attestation Statements Document Initiated by Scribe: Yes Documenting Scribe: Bala Acevedo Provider For Whom Zack is Documenting (Include Credential): Carlos Manuel Bradshaw MD Scribe Attestation: Bala Kwon, scribed for Carlos Manuel Bradshaw MD on 04/05/19 at 0603. Scribe Documentation Reviewed: Yes Provider Attestation: The documentation as recorded by the Bala alegria accurately reflects the service I personally performed and the decisions made by Bandar villeda MD Status of Scribe Document: Viewed
[2019-04-04] MEDS ORDERED: Fluconazole 100 MG TAB* TAB PO ONE (23:06)
[2019-04-04] MEDS ORDERED: Piperacillin/Tazobac ADVAN(*) 3.375 GM in NS 0.9% 100 ML* 100 ML IVPB ONE (23:10)
[2019-04-04] MEDS ORDERED: ED Vancomycin 1 GM/250 ML 1 GM/250 ML PREMIX.SET IVPB ONE (23:10)
[2019-04-04 23:39] LABS: Hematocrit 52 % (42-52); Hemoglobin 17.3 g/dL (14.0-18.0); Mean Corpuscular HGB Conc 33 g/dL (31-36); Mean Corpuscular Hemoglobin 30 pg (27-31); Mean Corpuscular Volume 90 fL (80-94); Mean Platelet Volume 9.5 fL (7.4-10.4); Platelet Count 389 10^3/uL (150-450); Red Blood Count 5.74 10^6 /uL (4.18-5.48); Red Cell Distribution Width 15 % (10.5-15); White Blood Count 25.6 10^3/uL (3.5-10.8)
[2019-04-04 23:53] LABS: Activated Partial Thrombo Time 88.2 seconds (26.0-36.3); INR 2.53 (0.82-1.09)
[2019-04-04 23:57] LABS: ALT 37 U/L (7-52); Albumin/Globulin Ratio 0.9 (1-3); Alkaline Phosphatase 144 U/L (34-104); BUN/Creatinine Ratio 42.1 (8-20); Blood Urea Nitrogen 106 mg/dL (6-24); C Reactive Protein 93.05 mg/L (<8.01); CO2 Carbon Dioxide 17 mmol/L (22-32); Calcium 10.1 mg/dL (8.6-10.3); Chloride 89 mmol/L (101-111); Creatine Kinase 402 U/L (10-223); EGFR African American 31.1 (>60); EGFR Non-African American 25.7 (>60); Globulin 4.7 g/dL (2-4); Glucose 89 mg/dL (70-100); Sodium 120 mmol/L (135-145); Total Protein 8.7 g/dL (6.4-8.9)
[2019-04-05 00:05] LABS: Anion Gap 14 mmol/L (2-11); Troponin I 0.05 ng/mL (<0.04)
[2019-04-05] MEDS ORDERED: Ondansetron INJ* 2 MG/ML VIAL IV ONE (00:56)
[2019-04-05] MEDS ORDERED: Morphine 4 MG/ML VIAL (1 ml) 4 MG/ML VIAL IV ONE (00:56)
[2019-04-05 01:00] LABS: ABS Basophils 0.1 10^3/ul (0-0.2); ABS Lymphocytes 0.5 10^3/ul (1.0-4.8); ABS Monocytes 1.4 10^3/ul (0-0.8); ABS Neutrophils 23.6 10^3/ul (1.5-7.7); Lymphocyte % 1.8 %; Nucleated Red Blood Cells % 0.1
[2019-04-05 01:29] LABS: Urine Appearance Cloudy; Urine Bacteria Absent (Absent); Urine Bilirubin Negative (Negative); Urine Blood 2+ (Negative); Urine Color Amber; Urine Glucose Negative (Negative); Urine Ketones Negative (Negative); Urine Nitrite Negative (Negative); Urine Protein Negative (Negative); Urine Red Blood Cell 1+(3-5/hpf) (Absent); Urine Specific Gravity 1.019 (1.010-1.030); Urine Urobilinogen Positive (Negative); Urine White Blood Cell Absent (Absent)
[2019-04-05] MEDS ORDERED: NS 0.9% 1000 ML** 1,000 ML IV ONE (01:34)
[2019-04-05 03:34] LABS: Calcium 9.1 mg/dL (8.6-10.3)
[2019-04-05 03:40] LABS: BUN/Creatinine Ratio 45.2 (8-20); EGFR African American 36.2 (>60); EGFR Non-African American 29.9 (>60)
[2019-04-05] MEDS ORDERED: Zosyn per Pharmacy* NOTE FOLLOW UP SCH (04:00)
[2019-04-05] MEDS ORDERED: Vancomycin 1500 MG IV - x ONCE IVPB ONE ×2 (04:00)
[2019-04-05] MEDS ORDERED: Vancomycin per Pharmacy* NOTE FOLLOW UP SCH (04:00)
[2019-04-05 04:25] LABS: TSH (Thyroid Stimulating Horm) 0.91 mcIU/mL (0.34-5.60)
[2019-04-05 04:26] LABS: Potassium 6.6 mmol/L (3.5-5.0)
[2019-04-05 04:31] LABS: Uric Acid 9.5 mg/dL (4.4-7.6)
[2019-04-05] MEDS ORDERED: Calcium Gluconate INJ* 1 GM in NS 0.9% 50 ML* 50 ML IVPB ONE (04:36)
[2019-04-05] MEDS ORDERED: Dextrose 50% VIAL 50 ml IV PRN (04:37)
[2019-04-05] MEDS ORDERED: Insulin REGULAR(*) 1 UNITS UNIT IV PUSH ONE (04:37)
[2019-04-05] MEDS ORDERED: Sodium Bicarbonate 8.4%* 50 ML SYRINGE IV ONE (04:38)
[2019-04-05] MEDS ORDERED: Dextrose 50% VIAL 50 ml IV ONE (05:16)
[2019-04-05] MEDS ORDERED: Dextrose 50% Syringe 50 ML* 25 GM/50 ML SYRINGE IV PUSH ONE (05:30)
[2019-04-05] MEDS ORDERED: Dextrose 50% VIAL 50 ml ONE ×2 (05:51→05:54)
[2019-04-05] MEDS: Patiromer POWDER* 8.4 GM PAK PO ONE ×2 (05:58→06:12)
[2019-04-05] MEDS: D5W 1/2 NS 1000 ML BAG* 1,000 ML IV SCH ×2 (06:00→16:30)
[2019-04-05] MEDS: traMADol TAB* 50 MG PO PRN ×3 (06:00→21:48)
[2019-04-05] MEDS ORDERED: Sodium Bicarbonate 8.4%* 50 ML SYRINGE ONE (06:15)
--- NOTE | 2019-04-05 06:23 | HP ---
HISTORY AND PHYSICAL: DATE OF ADMISSION: 04/05/19 ADMITTING PROVIDER: Justin Lynn MD CHIEF COMPLAINT: Fall with inability to get up, was down on the ground for 4 to 5 hours. HISTORY OF PRESENT ILLNESS: Penny Barfield is a 68-year-old male with a PMH of severe systolic congestive heart failure(EF 20-25%), CVA (MCA 2011 secondary to AFib and left atrial appendage clot), chronic atrial fibrillation(on Pradaxa) , morbid obesity, hypertension, sick sinus syndrome status post biventricular permanent pacer, obstructive sleep apnea, chronic venous stasis, spinal cord injury, essentially wheelchair bound for the most part but can take a few steps. He got the "flu" last week. This was not confirmed by testing, but he felt sick and fatigued and he has reduced p.o. intake. He had no headaches, fevers, or muscle aches. On the morning of admission, he was standing in the kitchen, when he slipped on some water, fell, was unable to get up for the next 4 to 5 hours. It seems like his wheelchair is malfunctioning and he is waiting on a new wheelchair to be delivered - he has not been sleeping as a result. Initially in the [facility] emergency room, he was found to be hypotensive 80/63. Leukocytosis of 25.6, lactic acidosis of 2.8, acute kidney injury with a creatinine of 2.52 up from his baseline of 0.6 to 0.7 (back in 2017). CRP of 93. Sodium of 120. He was started empirically on vancomycin and Zosyn because he has some skin tears, chronic venous stasis and erythema to his lower extremities. His T-bili was also elevated 2.[address] abdomen and pelvis has now returned showing mildly distended gallbladder with gallstones and sludge. A punctate non-obstructing left renal stone with no hydronephrosis. He had colonic diverticulosis with no evidence of acute diverticulitis. There are degenerative changes in the spine with diffuse narrowing of the spinal canal, severe degenerative changes in the bilateral hip joints, right greater than left. Bony exostosis of the left acetabulum and left iliac bone. He is in middle of getting a sepsis fluid bolus 3 L, but is still hypotensive, 70s to 80s over 50s to 60s. He is being admitted to the ICU for septic shock, acute kidney injury and severe hyponatremia. Repeat labs are pending. He denies any chest pain, shortness of breath. He was found covered in feces and naked. He states that he usually gets some help from his niece, Filipe. He [facility]. He has intermittent chronic buttocks pain, denies currently. PAST MEDICAL HISTORY: Systolic congestive heart failure 20% to 25% in March 2017 , sick sinus syndrome status post biventricular pacemaker, chronic AFib, on Pradaxa, morbid obesity with BMI of 52, hypertension, obstructive sleep apnea, venous stasis, spinal cord injuries, status post now essentially wheelchair bound, CVA with MCA in 2011 from AFib and a left atrial appendage clot. MEDICATIONS: Include: 1. Pradaxa 150 mg p.o. b.i.d. 2. Spironolactone 25 mg p.o. b.i.d. 3. Carvedilol 6.25 mg p.o. b.i.d. 4. Lasix 40 mg p.o. daily. ALLERGIES: No known drug allergies. FAMILY HISTORY: His mother and father both had heart disease. He is irritated when I ask how old they were when they SOCIAL HISTORY: The patient is a current smoker, half pack per day. Denies alcohol use. Denies drug use. He gets irritated when asked how long he smoked for. He desires to be a DNR/DNI. Medical surrogate is his niece, Filipe Ruffin. REVIEW OF SYSTEMS: A complete 14-point review of systems was negative except as per HPI. PHYSICAL EXAMINATION GENERAL APPEARANCE: Chronically ill appearing with no acute distress. VITAL SIGNS: Currently, temperature 96.8, heart rate 86, respiratory rate 26, satting 95% on room air; blood pressure 86/67. HEENT: Normocephalic, atraumatic. Pupils are equally round, and reactive to light. Extraocular motions intact. No scleral icterus. CARDIOVASCULAR: Regular rate and rhythm. No murmurs, rubs or gallops. LUNGS: Clear to auscultation with no gross rhonchi ABDOMEN: Obese, nontender. No rebound or guarding. No Montelongo's sign. EXTREMITIES: Chronic venous stasis changes with bilateral erythema up the way to his calf. Left leg is more swollen than the right. He has chronic keratotic hyperpigmented skin on his left feet, more so on the right. He has a couple of skin tears on his let anterior sue and right anterior distal sue. Also, some skin tears near his toes. NEURO: Moving all extremities. Cranial II through XII are intact. DIAGNOSTIC STUDIES/LAB DATA: White count 25.6, hemoglobin 17.3, hematocrit 52 , platelets 389. INR 2.53. Sodium 120, potassium hemolyzed, chloride 89, carbon dioxide 17, anion gap 14, BUN 106, creatine 2.52, glucose 89, lactic acid 2.8, calcium 10.1. Total bili 2.2, AST hemolyzed, ALT 37, alk phos 144. CK is 402. Troponin 0.05. CRP 93. BNP of 100. Albumin 4.0. Urinalysis showed 2+ blood, positive urobilinogen, +1 RBCs, present hyaline casts. Imaging: He had CT of head which showed no acute process,. CT cervical spine showed no acute findings. There was incomplete bony ankylosis of C4 through C7. Multilevel degenerative spondylosis greatest at C3- C4 level with moderate spinal stenosis and moderate to severe bilateral neural foraminal narrowing. CT abdomen and pelvis without contrast demonstrated. Impression: 1. Mildly distended gallbladder with gallstones and sludge. If clinically indicated further evaluation with ultrasound may be considered. 2. Punctate non-obstructive left renal stone. No hydronephrosis. 3. Colonic diverticulosis with no evidence of acute diverticulitis. 4. Osteoporosis. Degenerative changes in the spine. Diffuse narrowing of the spinal canal. If clinically indicated, further evaluation with MRI of the lumbar spine may be considered. 5. Severe degenerative changes in the bilateral hip joints, right greater than left, bony exostosis, left acetabulum and left iliac bone. EKG shows cardiomegaly. No infiltrate per my read awaiting formal read. EKG shows a paced rhythm, with wide QRS complex. ASSESSMENT AND PLAN: Penny Barfield is a 68-year-old male with multiple comorbidities including severe systolic congestive heart failure, cerebrovascular accident, spinal cord injury, essentially wheelchair bound, chronic atrial fibrillation(on pradaxa), sick sinus syndrome, obesity, presenting with fall, hypotension, lactic acidosis, weakness, acute kidney injury, with severe hyponatremia. He is being admitted to ICU given his low blood pressures and meets severe sepsis criteria with his acute kidney injury, leukocytosis, tachypnea, lactic acidosis. Continue empiric broad spectrum antibiotics, follow blood cultures. Get an ultrasound of the gallbladder to rule out obstructing stone. We will repeat a lactic acid (already drawn and pending). He is status post 3 L sepsis fluid bolus. I am going to hold off and wait until we find what the repeat sodium level is before deciding on continued IVF as he is at risk for being too rapidly corrected. To evaluate the etiology of his hyponatremia, I am adding TSH, AM serum cortisol, serum uric acid, Uosm, Ulytes(also for ERIS). He does have some chronic venous stasis change and left lower extremity edema, but otherwise relatively euvolemic. He may need pressors if his blood pressures decline further. I am holding his antihypertensive/ congestive heart failure medications of Coreg, Lasix, Aldactone. Continue his Pradaxa, decrease 75 b.i.d. for renal dosing. He is DNR/DNI. He is n.p.o. until he gets the gallbladder ultrasound. His medical surrogate is his niece, Filipe. He is being admitted as an inpatient status to the ICU. Addendum: His repeat BMP showed severe hypokalemia of 6.6 (initial was hemolyzed ). Likely related to his acute renal failure, likely prerenal per BUN/JAILKEEPER ratio. Will give amp D50 (then D51/2NS given his initial glucose is in 80s), 10U Regular, albuterol neb, sodium bicarb, calcium gluconate and patiromer. [id number]/[facility] #: [id number] [facility]
[2019-04-05] MEDS: Albuterol 2.5 MG/3 ML NEB.SOL* (0.083%) INH SCH ×2 (07:43→10:21)
[2019-04-05] MEDS: ZOSYN 3.375 GM Q8H per EXTENDED INFUSION IVPB SCH ×6 (08:28→21:28)
[2019-04-05 08:38] LABS: Hematocrit 43 % (42-52); Hemoglobin 14.3 g/dL (14.0-18.0); Mean Corpuscular HGB Conc 33 g/dL (31-36); Mean Corpuscular Hemoglobin 30 pg (27-31); Mean Corpuscular Volume 90 fL (80-94); Mean Platelet Volume 9.3 fL (7.4-10.4); Platelet Count 297 10^3/uL (150-450); Red Blood Count 4.79 10^6 /uL (4.18-5.48); Red Cell Distribution Width 15 % (10.5-15); White Blood Count 23.2 10^3/uL (3.5-10.8)
[2019-04-05 08:49] LABS: BUN/Creatinine Ratio 46.8 (8-20); Blood Urea Nitrogen 87 mg/dL (6-24); CO2 Carbon Dioxide 21 mmol/L (22-32); Calcium 9.1 mg/dL (8.6-10.3); Chloride 96 mmol/L (101-111); EGFR African American 44.2 (>60); EGFR Non-African American 36.5 (>60); Glucose 75 mg/dL (70-100); Sodium 127 mmol/L (135-145)
[2019-04-05 08:55] LABS: Troponin I 0.04 ng/mL (<0.04)
[2019-04-05] MEDS ORDERED: Dabigatran CAP(NF) 150 MG CAP PO SCH (09:00)
[2019-04-05 09:06] LABS: ABS Basophils 0.1 10^3/ul (0-0.2); ABS Lymphocytes 0.7 10^3/ul (1.0-4.8); ABS Monocytes 1.6 10^3/ul (0-0.8); ABS Neutrophils 20.7 10^3/ul (1.5-7.7); Eosinophil % 0.1 %
[2019-04-05 09:43] LABS: Ur Urea Nitrogen Concentration 1117 mg/dL; Urine Creatinine Concentration 53.51 mg/dL
[2019-04-05 10:32] LABS: Anion Gap 10 mmol/L (2-11)
[2019-04-05] MEDS: Dabigatran CAP(NF) 75 MG CAP PO SCH ×2 (11:43→21:27)
[2019-04-05 12:53] LABS: BUN/Creatinine Ratio 49.1 (8-20); Calcium 9.1 mg/dL (8.6-10.3); EGFR Non-African American 43.8 (>60)
[2019-04-05 12:56] LABS: Troponin I 0.03 ng/mL (<0.04)
[2019-04-05 12:58] LABS: Potassium 5.1 mmol/L (3.5-5.0)
[2019-04-05] MEDS ORDERED: Norepinephrine 16MCG/ML IVPRE* 4,000 MCG/250 ML BAG IV SCH (13:00)
[2019-04-05] MEDS ORDERED: Vancomycin(*) 1,250 MG in NS 0.9% 250 ML* 250 ML IVPB SCH (14:00)
--- NOTE | 2019-04-05 14:04 | PN ---
Date of Service: 04/05/19 - [facility] note Critical Care Services: Pt seen and examined at bedside multiple times through out the day. Admission records were reviewed. Pt is 68 y o obese male with multiple medical problems including severe sys CHF , CVA(MCA 2011), A.fib on Pradaxa, HTN, sick sinus syndrome s/p pacemaker placement. Pt was having gen malaise and feeling of being unwell which he attributed to flu. He was brought in after fall at home, pt was on floor for few hours not being able to get up. Pt also reports that he has not been eating well sec to illness. Pt was noted to be hypotensive with elevated lactate, leucocytosis. Pt was admitted to ICU for management of septic shock, ARF, hyponatremia, hyperkalemia. Pt improved with fluid resuscitation, lactate has improved. Pt denied any complaints other than being tired. Denied SOB, chest pain, abd pain, constipation. Declined to use CPAP. Vital Signs: Temp Pulse Resp BP SpO2 FiO2 97.4 F 64 15 100/66 100 04/05/19 12:00 04/05/19 13:30 04/05/19 13:30 04/05/19 13:30 04/05/19 13:30 Physical Exam: Gen: Pt in NAD, alert, awake HEENT: PERRLA, no JVD, mucus membranes dry Lungs: Clear to auscultation b/l Cardiac: S1, S2+, paced rhythm Abdomen: Obese, BS+ Extremities: Edema+, chronic skin changes and open skin on LE Neuro: No focal deficits, was drowsy this am Skin: No rash, chronic skin changes of LE, sacral decub stage-2 Fluid Balance (Past 24 Hours): I= 644 O= 1615 Net -971 Intake & Output 04/03/19 04/04/19 04/05/19 04/06/19 06:59 06:59 06:59 06:59 Intake Total 3100 644 Output Total 1615 Balance 3100 -971 Weight 233 lb 329 lb 9.457 oz Intake: IV Fluids 3100 537 D5W 1/2 NS 537 IVPB 107 ABX - ZOSYN 107 Output: Rodríguez 1615 Labs: Laboratory Results - last 24 hr 04/04/19 04/04/19 04/04/19 23:31 23:31 23:31 WBC 25.6 H RBC 5.74 H Hgb 17.3 Hct 52 MCV 90 MCH 30 MCHC 33 RDW 15 Plt Count 389 MPV 9.5 Neut % (Auto) 92.3 Lymph % (Auto) 1.8 [place] % (Auto) 5.6 Eos % (Auto) 0.0 Baso % (Auto) 0.3 Absolute Neuts (auto) 23.6 H Absolute Lymphs (auto) 0.5 L Absolute Monos (auto) 1.4 H Absolute Eos (auto) 0.0 Absolute Basos (auto) 0.1 Absolute Nucleated RBC 0.0 Nucleated RBC % 0.1 INR (Anticoag Therapy) 2.53 H APTT 88.2 H Sodium 120 L Potassium TNP Chloride 89 L Carbon Dioxide 17 L Anion Gap 14 H BUN 106 H Creatinine 2.52 H Est GFR ( Amer) 31.1 Est GFR (Non-Af Amer) 25.7 BUN/Creatinine Ratio 42.1 H Glucose 89 POC Glucose (mg/dL) Lactic Acid Uric Acid Calcium 10.1 Total Bilirubin 2.20 H AST TNP ALT 37 Alkaline Phosphatase 144 H Total Creatine Kinase 402 H Troponin I 0.05 H* C-Reactive Protein 93.05 H B-Natriuretic Peptide Total Protein 8.7 Albumin 4.0 Globulin 4.7 H Albumin/Globulin Ratio 0.9 L TSH Cortisol Urine Color Urine Appearance Urine pH Ur Specific Olla Urine Protein Urine Ketones Urine Blood Urine Nitrate Urine Bilirubin Urine Urobilinogen Ur Leukocyte Esterase Urine WBC (Auto) Urine RBC (Auto) Urine Bacteria Hyaline Casts Urine Osmolality Ur Creatinine Concen Ur Urea Nitrogen Conc Urine Glucose Blood Type Antibody Screen 04/04/19 04/04/19 04/04/19 23:31 23:32 23:33 WBC RBC Hgb Hct MCV MCH MCHC RDW Plt Count MPV Neut % (Auto) Lymph % (Auto) [place] % (Auto) Eos % (Auto) Baso % (Auto) Absolute Neuts (auto) Absolute Lymphs (auto) Absolute Monos (auto) Absolute Eos (auto) Absolute Basos (auto) Absolute Nucleated RBC Nucleated RBC % INR (Anticoag Therapy) APTT Sodium Potassium Chloride Carbon Dioxide Anion Gap BUN Creatinine Est GFR ( Amer) Est GFR (Non-Af Amer) BUN/Creatinine Ratio Glucose POC Glucose (mg/dL) Lactic Acid 2.8 H* Uric Acid Calcium Total Bilirubin AST ALT Alkaline Phosphatase Total Creatine Kinase Troponin I C-Reactive Protein B-Natriuretic Peptide 100 Total Protein Albumin Globulin Albumin/Globulin Ratio TSH Cortisol Urine Color Urine Appearance Urine pH Ur Specific Olla Urine Protein Urine Ketones Urine Blood Urine Nitrate Urine Bilirubin Urine Urobilinogen Ur Leukocyte Esterase Urine WBC (Auto) Urine RBC (Auto) Urine Bacteria Hyaline Casts Urine Osmolality Ur Creatinine Concen Ur Urea Nitrogen Conc Urine Glucose Blood Type A Positive Antibody Screen Negative 04/05/19 04/05/19 04/05/19 01:13 03:10 03:11 WBC RBC Hgb Hct MCV MCH MCHC RDW Plt Count MPV Neut % (Auto) Lymph % (Auto) [place] % (Auto) Eos % (Auto) Baso % (Auto) Absolute Neuts (auto) Absolute Lymphs (auto) Absolute Monos (auto) Absolute Eos (auto) Absolute Basos (auto) Absolute Nucleated RBC Nucleated RBC % INR (Anticoag Therapy) APTT Sodium 121 L Potassium 6.6 H* Chloride 95 L Carbon Dioxide 14 L* Anion Gap 12 H BUN 100 H Creatinine 2.21 H Est GFR ( Amer) 36.2 Est GFR (Non-Af Amer) 29.9 BUN/Creatinine Ratio 45.2 H Glucose 80 POC Glucose (mg/dL) Lactic Acid 2.3 H* Uric Acid 9.5 H Calcium 9.1 Total Bilirubin AST ALT Alkaline Phosphatase Total Creatine Kinase 670 H Troponin I C-Reactive Protein B-Natriuretic Peptide Total Protein Albumin Globulin Albumin/Globulin Ratio TSH 0.91 Cortisol 46.03 Urine Color Jenny Urine Appearance Cloudy Urine pH 5.0 Ur Specific Olla 1.019 Urine Protein Negative Urine Ketones Negative Urine Blood 2+ A Urine Nitrate Negative Urine Bilirubin Negative Urine Urobilinogen Positive A Ur Leukocyte Esterase Negative Urine WBC (Auto) Absent Urine RBC (Auto) 1+(3-5/hpf) A Urine Bacteria Absent Hyaline Casts Present A Urine Osmolality Ur Creatinine Concen Ur Urea Nitrogen Conc Urine Glucose Negative Blood Type Antibody Screen 04/05/19 04/05/19 04/05/19 08:17 08:25 08:25 WBC 23.2 H RBC 4.79 Hgb 14.3 Hct 43 MCV 90 MCH 30 MCHC 33 RDW 15 Plt Count 297 MPV 9.3 Neut % (Auto) 89.5 Lymph % (Auto) 3.0 [place] % (Auto) 7.0 Eos % (Auto) 0.1 Baso % (Auto) 0.4 Absolute Neuts (auto) 20.7 H Absolute Lymphs (auto) 0.7 L Absolute Monos (auto) 1.6 H Absolute Eos (auto) 0.0 Absolute Basos (auto) 0.1 Absolute Nucleated RBC 0.0 Nucleated RBC % 0.0 INR (Anticoag Therapy) APTT Sodium 127 L Potassium TNP Chloride 96 L Carbon Dioxide 21 L Anion Gap 10 BUN 87 H Creatinine 1.86 H Est GFR ( Amer) 44.2 Est GFR (Non-Af Amer) 36.5 BUN/Creatinine Ratio 46.8 H Glucose 75 POC Glucose (mg/dL) 88 Lactic Acid Uric Acid Calcium 9.1 Total Bilirubin AST ALT Alkaline Phosphatase Total Creatine Kinase Troponin I 0.04 H* C-Reactive Protein B-Natriuretic Peptide Total Protein Albumin Globulin Albumin/Globulin Ratio TSH Cortisol Urine Color Urine Appearance Urine pH Ur Specific Olla Urine Protein Urine Ketones Urine Blood Urine Nitrate Urine Bilirubin Urine Urobilinogen Ur Leukocyte Esterase Urine WBC (Auto) Urine RBC (Auto) Urine Bacteria Hyaline Casts Urine Osmolality Ur Creatinine Concen Ur Urea Nitrogen Conc Urine Glucose Blood Type Antibody Screen 04/05/19 04/05/19 04/05/19 08:25 09:10 09:10 WBC RBC Hgb Hct MCV MCH MCHC RDW Plt Count MPV Neut % (Auto) Lymph % (Auto) [place] % (Auto) Eos % (Auto) Baso % (Auto) Absolute Neuts (auto) Absolute Lymphs (auto) Absolute Monos (auto) Absolute Eos (auto) Absolute Basos (auto) Absolute Nucleated RBC Nucleated RBC % INR (Anticoag Therapy) APTT Sodium Potassium Chloride Carbon Dioxide Anion Gap BUN Creatinine Est GFR ( Amer) Est GFR (Non-Af Amer) BUN/Creatinine Ratio Glucose POC Glucose (mg/dL) Lactic Acid 2.9 H* Uric Acid Calcium Total Bilirubin AST ALT Alkaline Phosphatase Total Creatine Kinase Troponin I C-Reactive Protein B-Natriuretic Peptide Total Protein Albumin Globulin Albumin/Globulin Ratio TSH Cortisol Urine Color Urine Appearance Urine pH Ur Specific Olla Urine Protein Urine Ketones Urine Blood Urine Nitrate Urine Bilirubin Urine Urobilinogen Ur Leukocyte Esterase Urine WBC (Auto) Urine RBC (Auto) Urine Bacteria Hyaline Casts Urine Osmolality 567 Ur Creatinine Concen 53.51 Ur Urea Nitrogen Conc 1117 Urine Glucose Blood Type Antibody Screen 04/05/19 04/05/19 04/05/19 10:20 12:27 12:29 WBC RBC Hgb Hct MCV MCH MCHC RDW Plt Count MPV Neut % (Auto) Lymph % (Auto) [place] % (Auto) Eos % (Auto) Baso % (Auto) Absolute Neuts (auto) Absolute Lymphs (auto) Absolute Monos (auto) Absolute Eos (auto) Absolute Basos (auto) Absolute Nucleated RBC Nucleated RBC % INR (Anticoag Therapy) APTT Sodium Potassium Chloride Carbon Dioxide Anion Gap BUN Creatinine Est GFR ( Amer) Est GFR (Non-Af Amer) BUN/Creatinine Ratio Glucose POC Glucose (mg/dL) 100 109 H Lactic Acid 2.1 H* Uric Acid Calcium Total Bilirubin AST ALT Alkaline Phosphatase Total Creatine Kinase Troponin I C-Reactive Protein B-Natriuretic Peptide Total Protein Albumin Globulin Albumin/Globulin Ratio TSH Cortisol Urine Color Urine Appearance Urine pH Ur Specific Olla Urine Protein Urine Ketones Urine Blood Urine Nitrate Urine Bilirubin Urine Urobilinogen Ur Leukocyte Esterase Urine WBC (Auto) Urine RBC (Auto) Urine Bacteria Hyaline Casts Urine Osmolality Ur Creatinine Concen Ur Urea Nitrogen Conc Urine Glucose Blood Type Antibody Screen 04/05/19 12:29 WBC RBC Hgb Hct MCV MCH MCHC RDW Plt Count MPV Neut % (Auto) Lymph % (Auto) [place] % (Auto) Eos % (Auto) Baso % (Auto) Absolute Neuts (auto) Absolute Lymphs (auto) Absolute Monos (auto) Absolute Eos (auto) Absolute Basos (auto) Absolute Nucleated RBC Nucleated RBC % INR (Anticoag Therapy) APTT Sodium 127 L Potassium 5.1 H D Chloride 97 L Carbon Dioxide 22 Anion Gap 8 BUN 78 H Creatinine 1.59 H Est GFR ( Amer) 53.0 Est GFR (Non-Af Amer) 43.8 BUN/Creatinine Ratio 49.1 H Glucose 110 H POC Glucose (mg/dL) Lactic Acid Uric Acid Calcium 9.1 Total Bilirubin AST ALT Alkaline Phosphatase Total Creatine Kinase Troponin I 0.03 C-Reactive Protein B-Natriuretic Peptide Total Protein Albumin Globulin Albumin/Globulin Ratio TSH Cortisol Urine Color Urine Appearance Urine pH Ur Specific Olla Urine Protein Urine Ketones Urine Blood Urine Nitrate Urine Bilirubin Urine Urobilinogen Ur Leukocyte Esterase Urine WBC (Auto) Urine RBC (Auto) Urine Bacteria Hyaline Casts Urine Osmolality Ur Creatinine Concen Ur Urea Nitrogen Conc Urine Glucose Blood Type Antibody Screen Studies: Abd CT: Slight dilation of gall bladder, no CBD dilation, no acute abdominal signs Nutrition: Soft diet Impression: Hypotension sec to septic shock versus severe dehydration Cholelithiasis Hyponatremia Hyperkalemia Lactic acidosis ARF Leucocytosis Severe sys CHF not in exacerbation Plan: 1. Neuro: Pt is alert, was slightly drowsy this morning likely sec to metabolic encephalopathy. Aspiration and fall precautions. Pt with spinal stenosis, chronically wheel chair bound s/p mechanical fall at home. CT brain- no bleed. 2. CVS: Hypotension sec to dehydration and prerenal RF versus sepsis. Pt responded to fluid bolus. Cardiac meds are held. Pt with h/o sick sinus syndrome s/p pacemaker. Pt also with severe sys CHF, no acute changes on EKG. No evidence of Acute CHF. Pt responded to fluid bolus. Levophed ordered if hypotension persists. Spironolactone, Furosemide and Carvedilol are held. Pradaxa being continued. Will monitor I/O closely. ECHO ordered to evaluate for pericardial effusion given uremia. 3. Resp: Stable, has h/o sl apnea not being treated currently. Pt declined CPAP. Will c/w O2 suppl. 4. ID: Leucocytosis with no obvious source of infection though has chronic cellulitis. Pt is afebrile, pt reports flu like sx recently, unclear if flu or from uremia from RF. Empirically being covered for cellulitis and biliary sepsis given gall bladdder stones/sludge and hypotension. Pt on Zosyn and Vanco. Lactate elevated on admission, trending down. Septic w/u sent. UA is negative. CXR showed no PNA. Has h/o chronic cellulitis of LE. 5. GI: Elevated LFTs. No evidence of cholelithiasis clinically. Monitor LFTs closely. Diet started, tolerated well. GI ppx 6. Renal: ARF of unclear etiology, likely prerenal. Cr improving. Metabolic acidosis improving. Hyponatremia- improving. Hyperkalemeia resolved. Pt on bicarb drip, will d/c and change fluids to normal saline. UO good. Monitor I/O. 7. Haem: Leucocytosis- ? sepsis versus hemoconcentration. 8. Musculoskeletal: Chronic skin changes+. H/o cellulitis. Pt is DNR/DNI IV access: Peripheral, pt doensot want to have central line Rodríguez catheter placed for hemodynamic monitoring DVT px: Pt on Pradaxa. Critical Care Time: 30 min
[2019-04-05 20:13] LABS: Urine Sodium Concentration < 18 mmol/L
[2019-04-05 22:28] LABS: Albumin 2.8 g/dL (3.2-5.2); Albumin/Globulin Ratio 0.9 (1-3); BUN/Creatinine Ratio 41.4 (8-20); Calcium 8.8 mg/dL (8.6-10.3); EGFR African American 61.4 (>60); EGFR Non-African American 50.7 (>60); Globulin 3.2 g/dL (2-4); Indirect Bilirubin 0.6 mg/dL (0.3-1.0); Potassium 4.7 mmol/L (3.5-5.0); Total Bilirubin 1.1 mg/dL (0.2-1.0)
[2019-04-05] MEDS ORDERED: NS 0.9% 500 ML* 500 ML IV ONE (22:53)
[2019-04-05] MEDS: NS 0.9% 1000 ML** 1,000 ML IV SCH (23:01)
[2019-04-05] MEDS ORDERED: Ketoconazole 2 % CREAM (NF) 30 GM TUBE TOPICAL ONE (23:05)
[2019-04-06] MEDS: ZOSYN 3.375 GM Q8H per EXTENDED INFUSION IVPB SCH ×6 (04:57→21:52)
[2019-04-06 05:32] LABS: ABS Eosinophils 0.2 10^3/ul (0-0.6); ABS Lymphocytes 0.9 10^3/ul (1.0-4.8); ABS Monocytes 1.5 10^3/ul (0-0.8); ABS Neutrophils 9.5 10^3/ul (1.5-7.7); Eosinophil % 1.6 %; Hematocrit 41 % (42-52); Hemoglobin 13.4 g/dL (14.0-18.0); Lymphocyte % 7.2 %; Mean Corpuscular HGB Conc 33 g/dL (31-36); Mean Corpuscular Hemoglobin 30 pg (27-31); Mean Corpuscular Volume 91 fL (80-94); Mean Platelet Volume 8.7 fL (7.4-10.4); Nucleated Red Blood Cells % 0.1; Platelet Count 245 10^3/uL (150-450); Red Blood Count 4.55 10^6 /uL (4.18-5.48); Red Cell Distribution Width 15 % (10.5-15); White Blood Count 12.1 10^3/uL (3.5-10.8)
[2019-04-06 05:48] LABS: BUN/Creatinine Ratio 42.6 (8-20); Calcium 8.6 mg/dL (8.6-10.3); EGFR African American 89.4 (>60); EGFR Non-African American 73.9 (>60); Potassium 4.5 mmol/L (3.5-5.0)
[2019-04-06] MEDS ORDERED: Perflutren Lipid Microsphere* 3 ML VIAL ONE (07:55)
[2019-04-06] MEDS: CMCS: Dabigatran CAP(NF) 150 MG CAP PO SCH ×2 (08:17→20:22)
[2019-04-06] MEDS: traMADol TAB* 50 MG PO PRN ×2 (08:17→20:22)
[2019-04-06] MEDS: NS 0.9% 1000 ML** 1,000 ML IV SCH ×2 (08:41→21:06)
[2019-04-06] MEDS: Vancomycin(*) 1,000 MG in NS 0.9% 250 ML* 250 ML IVPB SCH ×2 (10:27→21:52)
[2019-04-06 11:58] LABS: INR 1.6 (0.82-1.09)
--- NOTE | 2019-04-06 12:04 | PN ---
Progress Note - Progress Note Date of Service: 04/06/19 Note: Progress Note -- Critical Care 24 hour events/significant events: -no sig events overnight -in chair now, no distress, verbalizing -no pain; on RA, sats upper 90s -afebrile Tele: Afib Vitals: Vital Signs Temp 97 F 04/06/19 07:39 Pulse 78 04/06/19 11:15 Resp 25 04/06/19 11:15 BP 114/46 04/06/19 10:57 Pulse Ox 96 04/06/19 11:15 Intake & Output 04/05/19 04/06/19 04/06/19 18:59 06:59 18:59 Intake Total 914 3254 360 Output Total 2455 1085 430 Balance -1541 2169 -70 Weight 149.5 kg 164.5 kg Intake: IV Fluids 537 2170 D5W 1/2 NS 537 831 NS (0.9%) 1339 IVPB 107 524 ABX - VANCOMYCIN 288 ABX - ZOSYN 107 236 Oral 270 560 360 Output: Miner 2455 1085 430 O2/Vent: RA Infusions: NS 75cc/hr Medications: Acetaminophen (Tylenol Tab*) 650 mg PO Q6H PRN PRN Reason: FEVER/PAIN Dabigatran (Pradaxa Cap(Nf)) 150 mg PO BID [facility] Last Admin: 04/06/19 08:17 Dose: 150 mg Piperacillin Sod/Tazobactam (Sod 3.375 gm/ Sodium Chloride) 100 mls @ 25 mls/ hr IVPB Q8H [facility] Last Admin: 04/06/19 04:57 Dose: 25 mls/hr Vancomycin HCl 1,000 mg/ (Sodium Chloride) 250 mls @ 166.667 mls/hr IVPB Q12H [facility] Last Admin: 04/06/19 10:27 Dose: 166.667 mls/hr Sodium Chloride (Ns 0.9% 1000 Ml) 1,000 mls @ 75 mls/hr IV PER RATE [facility] Pharmacy Consult (Vancomycin Per Pharmacy*) 1 note FOLLOW UP .VANC PER PHARMACY [facility]; Protocol Pharmacy Consult (Zosyn Per Pharmacy*) 1 note FOLLOW UP .ZOSYN PER PHARMACY [facility] Pharmacy Profile Note (Vancomycin Trough Check) 1 note FOLLOW UP 1330 ONE Stop: 04/07/19 13:31 Tramadol HCl (Ultram*) 50 mg PO Q6H PRN PRN Reason: PAIN Last Admin: 04/06/19 08:17 Dose: 50 mg Physical Exam: Constitutional: awake, alert, no distress, no diaphoresis Head: normocephalic, atraumatic Eyes: no pallor, no icterus ENT: moist mucous membranes Neck: soft, supple, no jvd, no stridor CVS: normal rate, regular, no murmur Resp: bilateral air entry, no rhales, no wheeze, no rhonchi, no acc muscle use Abdomen/GI: soft, nontender, nondistended, BS+ Ext/Msk: warm, pulses+, no edema Skin: intact, warm; Right lower extremity cellulitus and open wounds+, minimal erythema, chronic LE skin changes noted+ Neuro: awake, alert, orientedx3, moving all extremities, no gross focal deficit Labs: Laboratory Results - last 24 hr 04/05/19 04/05/19 04/05/19 09:10 12:27 12:29 WBC RBC Hgb Hct MCV MCH MCHC RDW Plt Count MPV Neut % (Auto) Lymph % (Auto) [place] % (Auto) Eos % (Auto) Baso % (Auto) Absolute Neuts (auto) Absolute Lymphs (auto) Absolute Monos (auto) Absolute Eos (auto) Absolute Basos (auto) Absolute Nucleated RBC Nucleated RBC % Sodium Potassium Chloride Carbon Dioxide Anion Gap BUN Creatinine Est GFR ( Amer) Est GFR (Non-Af Amer) BUN/Creatinine Ratio Glucose POC Glucose (mg/dL) 109 H Lactic Acid 2.1 H* Calcium Total Bilirubin Direct Bilirubin Indirect Bilirubin AST ALT Alkaline Phosphatase Troponin I Total Protein Albumin Globulin Albumin/Globulin Ratio Ur Creatinine Concen 53.51 U Sodium Concentration < 18 Ur Urea Nitrogen Conc 1117 04/05/19 04/05/19 04/05/19 12:29 14:32 16:18 WBC RBC Hgb Hct MCV MCH MCHC RDW Plt Count MPV Neut % (Auto) Lymph % (Auto) [place] % (Auto) Eos % (Auto) Baso % (Auto) Absolute Neuts (auto) Absolute Lymphs (auto) Absolute Monos (auto) Absolute Eos (auto) Absolute Basos (auto) Absolute Nucleated RBC Nucleated RBC % Sodium 127 L Potassium 5.1 H D Chloride 97 L Carbon Dioxide 22 Anion Gap 8 BUN 78 H Creatinine 1.59 H Est GFR ( Amer) 53.0 Est GFR (Non-Af Amer) 43.8 BUN/Creatinine Ratio 49.1 H Glucose 110 H POC Glucose (mg/dL) 113 H 148 H Lactic Acid Calcium 9.1 Total Bilirubin Direct Bilirubin Indirect Bilirubin AST ALT Alkaline Phosphatase Troponin I 0.03 Total Protein Albumin Globulin Albumin/Globulin Ratio Ur Creatinine Concen U Sodium Concentration Ur Urea Nitrogen Conc 04/05/19 04/05/19 04/05/19 17:59 20:03 21:55 WBC RBC Hgb Hct MCV MCH MCHC RDW Plt Count MPV Neut % (Auto) Lymph % (Auto) [place] % (Auto) Eos % (Auto) Baso % (Auto) Absolute Neuts (auto) Absolute Lymphs (auto) Absolute Monos (auto) Absolute Eos (auto) Absolute Basos (auto) Absolute Nucleated RBC Nucleated RBC % Sodium 127 L Potassium 4.7 Chloride 99 L Carbon Dioxide 22 Anion Gap 6 BUN 58 H Creatinine 1.40 H Est GFR ( Amer) 61.4 Est GFR (Non-Af Amer) 50.7 BUN/Creatinine Ratio 41.4 H Glucose 119 H POC Glucose (mg/dL) 133 H 160 H Lactic Acid Calcium 8.8 Total Bilirubin 1.10 H Direct Bilirubin 0.50 H Indirect Bilirubin 0.6 AST 34 ALT 29 Alkaline Phosphatase 108 H Troponin I Total Protein 6.0 L Albumin 2.8 L Globulin 3.2 Albumin/Globulin Ratio 0.9 L Ur Creatinine Concen U Sodium Concentration Ur Urea Nitrogen Conc 04/05/19 04/06/19 04/06/19 22:05 05:20 05:20 WBC 12.1 H RBC 4.55 Hgb 13.4 L Hct 41 L MCV 91 MCH 30 MCHC 33 RDW 15 Plt Count 245 MPV 8.7 Neut % (Auto) 78.3 Lymph % (Auto) 7.2 [place] % (Auto) 12.6 Eos % (Auto) 1.6 Baso % (Auto) 0.3 Absolute Neuts (auto) 9.5 H Absolute Lymphs (auto) 0.9 L Absolute Monos (auto) 1.5 H Absolute Eos (auto) 0.2 Absolute Basos (auto) 0.0 Absolute Nucleated RBC 0.0 Nucleated RBC % 0.1 Sodium 128 L Potassium 4.5 Chloride 103 Carbon Dioxide 20 L Anion Gap 5 BUN 43 H Creatinine 1.01 Est GFR ( Amer) 89.4 Est GFR (Non-Af Amer) 73.9 BUN/Creatinine Ratio 42.6 H Glucose 103 H POC Glucose (mg/dL) Lactic Acid 2.8 H* Calcium 8.6 Total Bilirubin Direct Bilirubin Indirect Bilirubin AST ALT Alkaline Phosphatase Troponin I Total Protein Albumin Globulin Albumin/Globulin Ratio Ur Creatinine Concen U Sodium Concentration Ur Urea Nitrogen Conc Imaging: reviewed Assessment: 68y M w/pmhx of Severe LV systolic dysfunction, MCA CVA 2011, Afib on pradaxa, Obesity, HTN, SSS s/p BiV PPM, MARINO, Chronic venous stasis, spinal cord injury and almost wheelchair bound. Recent viral illness symptoms as patient. He was found at home, possibly fell off wheelchair, found on floor covered in urine/feces, bleeding from genitals, said to have been fallen for 4 hours after he possibly slipped at home. In ER he was hypotensive, elevated LA and WBC, ERIS, hyponatremia. Suspected sepsis and volume depletion. Empiric Abx started for possible venous stasis ulcers. Patient stated he also had loss of appetite. Improved BP and LA with fluid rescucitation on 04/04 and 04/05. -Septic Shock, fluid responsive; improved -LE cellulitus on venous ulcers -cholelithiasis -ERIS -Hyponatremia -hyperkalemia Afib, s/p PPM MARINO Spinal cord injury, wheelchair bound h/o CVA Chronic LV systolic dysfunction Plan: Neuro- -awake/alert -h/o spinal cord injury; using wheelchair; oob to chair -pt/ot eval -Delirium prec; avoid BDZ CVS- -BP imrpoved, positive balance -hold Antihypertensives today; restart likely tomorrow -cont NS, dec to 75cc/hr -Making urine; hold lasix for now, restart in next 24-48 hours to maintain euvolemia -cont dabigatran for Afib Ac -Afib; current Vpaced mostly -Maintain MAP>65 Resp- -On RA; no distress -MARINO; nocturnal CPAP ordered -incentive spirometry if needed -restart diuretics once renal function stabilized to maintain euvolemia -Wean Fio2 to keep sat>92% -Bronchodilators PRN, Aspiration prec ID- -afebrile, wbc 25-23-12 -Sepsis was suspected; off pressors; on fluids -suspected source LE venous ulcers, purulent drainage noted -will obtain wound cultures, though I suspect polymicrobial colonization; check if MRSA -cont zosyn , vanco GI- -Nutrition: change to regular consistency cardiac diet -GI prophylaxis Renal- -ERIS; suspect from septic ATN and volume depletion; improving -making urine, positive balance -hyponatremia improving; also suspected to be from volume depletion -cont NS 75cc/hr -Hyperkalemia improved -maintain miner today; by tomorrow can likely d/c miner -will need lasix re-iniitated also to maintain euvolemic state -strict I/O, replete to keep K>4, Mg>2 -miner as indicated Heme- hg stable -plt stable -dabigatran for Afib AC -no LE SCDs due to wounds Endo-Maintain BG<200, insulin protocol as needed Musculsk- pressure ulcer prophylaxis. oob to chair. pt/ot Wounds- LE wound care, wound care consult. IV abx, wound cultures. maintain elevated state. Nutrition- cardiac diet, reg consistency DVT prophylaxis: no SCD due to wounds; dabigatran PO Afib AC GI prophylaxis: not indicated Central Line: no Arterial Line: no Miner Cathetor: yes; can likely d/c in next 24 hours Disposition: hemodyn stable and improving for medical floor transfer today Patient clinical status: stable Code Status: full code Kenrick Robles MD [employer] Relations Adviser (Electronically Signed)
--- NOTE | 2019-04-06 12:46 | ECHO ---
*[facility]* [place] [address] Fax #: [phone] Transthoracic Echocardiogram Patient: Carolyne, Height: 70 in / Penny Robles 177.8 cm : 1950 Weight: 328.3 lb / Study Date: 04/06/2019 149.2 kg Age: 68 BP: 100 / 60 Gender: M BMI/BSA: 47.2 HR: 63 bpm kg/m^2 / 2.58 m^2 *Juice Mixer: * Mandi Tejada RD *Referring Physician: * Yoli Whitt *Reading Physician: * Mikael Spear MD Indications: Shock, other (Septic). History: Cerebrovascular accident 2011. SSS s/p biventricular pacer,morbid obesity,a-fib. Risk factors: Hypertension. Conclusions Summary: 1. Left ventricle: The cavity size is normal. Wall thickness is mildly increased. Systolic function is moderately reduced. The estimated ejection fraction is 30-35%. Moderate hypokinesis. 2. Right ventricle: Pacer wire noted in the right ventricle. Systolic function is mildly reduced. 3. Ventricular septum: There is abnormal interventricular septal wall motion consistent with an RV pacemaker. 4. Mitral valve: There is no significant regurgitation. 5. Aortic valve: There is no evidence of stenosis. There is no significant regurgitation. 6. Tricuspid valve: Not well visualized. 7. Pericardium, extracardiac: There is no pericardial effusion. 8. Impressions: Compared to study of 03/29/17, the LV function is slightly better. Study data: Transthoracic echocardiogram. Procedure: Transthoracic echocardiography was performed. The study was technically limited due to poor acoustic window availability. Intravenous contrast (, 5 mls) was administered. Complete 2D, spectral Doppler, and color flow Doppler. Location: ICU Findings Left ventricle: The cavity size is normal. Wall thickness is mildly increased. Systolic function is moderately reduced. The estimated ejection fraction is 30-35%. Regional wall motion abnormalities: Moderate hypokinesis. There is a reduced contribution of atrial contraction to ventricular filling, due to increased ventricular diastolic pressure or atrial contractile dysfunction. Right ventricle: Not well visualized. The cavity size is normal. Wall thickness is normal. Pacer wire noted in the right ventricle. Systolic function is mildly reduced. Ventricular septum: Well visualized. There is abnormal interventricular septal wall motion consistent with an RV pacemaker. Left atrium: The atrium is mildly dilated. Right atrium: Poorly visualized. The atrium is mildly dilated. Pacer wire noted in right atrium. Atrial septum: Well visualized. Mitral valve: Well visualized. The leaflets are mildly thickened. There is no significant regurgitation. The peak diastolic gradient is 3.0 mm Hg. Aortic valve: The valve is trileaflet. The leaflets are normal thickness. There is no evidence of stenosis. There is no significant regurgitation. The ratio of LVOT to aortic valve peak velocity is 0.76. The ratio of LVOT to aortic valve mean velocity is 0.72. The mean systolic gradient is 2.0 mm Hg. The peak systolic gradient is 4.0 mm Hg. Tricuspid valve: Not well visualized. The leaflets are normal thickness. There is no evidence of stenosis. There is mild regurgitation. Pulmonic valve: Poorly visualized. The leaflets are normal thickness. There is no evidence of stenosis. There is no significant regurgitation. The peak systolic gradient is 5.0 mm Hg. Aorta: The aorta is poorly visualized. Aortic arch: The aortic arch is appears normal. Pericardium: There is no pericardial effusion. No evidence of pleural fluid accumulation. Pulmonary arteries: Not well visualized. Systemic veins: Well visualized. Pulmonary veins: Not well visualized. Measurements Left ventricle Value Ref Right atrium Value Ref CHRISTINE, LAX 5.4 cm 4.2 - 5.8 SI dim, ES (H) 8.0 cm 3.4 - PW, ED, LAX 0.9 cm 0.6 - 1.0 5.3 PW/ID, ED, LAX 0.17 SI dim/bsa, ES (H) 3.1 cm/m^2 1.8 - CHRISTINE 5.4 cm 4.2 - 5.8 3.0 PW, ED 0.9 cm 0.6 - 1.0 SI dim, ES, A4C (H) 8.0 cm 3.4 - IVS/PW, ED 1.32 5.3 PW/ID, ED 0.17 E', lat eloina, (L) 8.6 cm/sec >=10.0 Aortic valve Value Ref TDI Eloina diam, ED 2.4 cm -------- E/e', lat eloina, 10 Peak v, S 0.98 m/sec --- ----- TDI Mean v, S 0.64 m/sec -------- E', med eloina, 7.8 cm/sec >=7.0 VTI, S 18.6 cm -------- TDI Mean grad, S 2.0 mm Hg -------- E/e', med eloina, 11 Peak grad, S 4.0 mm Hg --- ----- TDI LVOT/AV, Vpeak 0.76 -------- E', avg, TDI 8.2 cm/sec ratio E/e', avg, TDI 11 <=14 Mitral valve Value Ref LVOT Value Ref Peak E 0.87 m/sec -------- Peak suman, S 0.75 m/sec Peak A 0.25 m/sec -------- Mean suman, S 0.46 m/sec Decel time 285 ms -------- Mean grad, S 1 mm Hg Peak grad, D 3.0 mm Hg -------- Peak E/A ratio 3.4 -------- Ventricular septum Value Ref IVS, ED, LAX (H) 1.2 cm 0.6 - 1.0 Aortic root Value Ref IVS, ED (H) 1.2 cm 0.6 - 1.0 Root diam 3.8 cm <4.6 Root max diam, ED 3.8 cm <4.6 Right ventricle Value Ref Root max diam/bsa, 1.5 cm/m^2 1.3 - CHRISTINE, LAX 3.5 cm ED 2.1 Left atrium Value Ref Ascending aorta Value Ref AP dim, ES 3.90 cm 3.00 - AAo AP diam, S 3.9 cm -------- 4.00 AAo AP diam/bsa, S 1.5 cm/m^2 -------- ML dim, A4C 5.1 cm Inferior vena cava Value Ref Diam 3.0 cm -------- Legend: (L) and (H) devon values outside specified reference range. Prepared and electronically signed by Mikael Spear MD 04/06/2019 12:46
[2019-04-06] MEDS: KETOCONAZOLE 2% TOPICAL SCH (20:22)
[2019-04-07] MEDS: ZOSYN 3.375 GM Q8H per EXTENDED INFUSION IVPB SCH ×6 (05:12→22:59)
[2019-04-07 05:29] LABS: Hematocrit 38 % (42-52); Hemoglobin 12.4 g/dL (14.0-18.0); Mean Corpuscular HGB Conc 32 g/dL (31-36); Mean Corpuscular Hemoglobin 30 pg (27-31); Mean Corpuscular Volume 91 fL (80-94); Mean Platelet Volume 8.7 fL (7.4-10.4); Platelet Count 249 10^3/uL (150-450); Red Cell Distribution Width 15 % (10.5-15); White Blood Count 9.9 10^3/uL (3.5-10.8)
[2019-04-07 05:44] LABS: BUN/Creatinine Ratio 28.4 (8-20); Calcium 8.2 mg/dL (8.6-10.3); EGFR African American 143.6 (>60); EGFR Non-African American 118.7 (>60); Magnesium 1.7 mg/dL (1.9-2.7); Potassium 4.2 mmol/L (3.5-5.0)
[2019-04-07] MEDS ORDERED: Magnesium Sulfate 2 GM IV* 2 GM/50 ML BAG IVPB ONE (06:10)
[2019-04-07] MEDS ORDERED: Calcium Gluconate INJ* 1 GM in NS 0.9% 50 ML* 50 ML IVPB ONE (06:13)
[2019-04-07] MEDS: CMCS: Dabigatran CAP(NF) 150 MG CAP PO SCH ×2 (08:11→20:15)
[2019-04-07] MEDS: Potassium & Sodium Phos 250MG* = 1 PACKET PO SCH ×3 (08:13→13:34)
[2019-04-07] MEDS ORDERED: Vancomycin Trough Check NOTE FOLLOW UP ONE (09:30)
[2019-04-07] MEDS: KETOCONAZOLE 2% TOPICAL SCH ×2 (09:47→20:29)
[2019-04-07] MEDS: Vancomycin(*) 1,000 MG in NS 0.9% 250 ML* 250 ML IVPB SCH ×2 (11:11→22:59)
[2019-04-07] MEDS: NS 0.9% 1000 ML** 1,000 ML IV SCH ×2 (11:13→22:59)
--- NOTE | 2019-04-07 16:35 | CONSULT ---
Subjective Date of Service: 04/07/19 Interval History: Mr. Padilla is a 68 yo male with PMH significant for severe systolic CHF (EF 20-25%), CVA, Afib, morbid obesity, HTN, sick sinus syndrome s/p pacemaker placement, MARINO, chronic venous stasis, and mostly wheelchair bound due to a spinal injury; who slipped and fell at home and was unable to get up. He presented to the emergency room for evaluation. He was admitted to the hospital with open areas to his bilateral LEs. Patient seen and examined at bedside. Family History: Unchanged from Admission Social History: Unchanged from Admission Past Medical History: Unchanged from Admission Review of Systems - Measurements Intake and Output: Intake and Output Last 24 Hours 04/05/19 04/06/19 04/07/19 04/08/19 06:59 06:59 06:59 06:59 Intake Total 3100 4168 2045 1103 Output Total 3540 1310 225 Balance 3100 628 735 878 Weight 233 lb 362 lb 10.566 oz Intake: IV Fluids 3100 2707 1164 335 ABX - VANCOMYCIN 335 D5W 1/2 NS 1368 NS (0.9%) 1339 1164 IVPB 631 521 408 ABX - VANCOMYCIN 288 288 250 ABX - ZOSYN 343 233 98 NS (0.9%) 60 Oral 830 360 360 Output: Rodríguez 3540 1310 225 Other: # Bowel Movements 0 - Review of Systems Constitutional Symptoms: Negative: Fever, Other - Chills Dermatology: Positive: Other - Open areas to bilateral LEs Cardiology: Positive: Edema Endocrinology: Positive: Obesity Negative: Diabetes Mellitus Objective Active Medications: Acetaminophen (Tylenol Tab*) 650 mg PO Q6H PRN Reason: FEVER/PAIN Dabigatran (Pradaxa Cap(Nf)) 150 mg PO BID KEN Piperacillin Sod/Tazobactam (Sod 3.375 gm/ Sodium Chloride) 100 mls @ 25 mls/ hr IVPB Q8H KEN Vancomycin HCl 1,000 mg/ (Sodium Chloride) 250 mls @ 166.667 mls/hr IVPB Q12H KEN Sodium Chloride (Ns 0.9% 1000 Ml) 1,000 mls @ 75 mls/hr IV PER RATE KEN Ketoconazole (Nizoral 2% Cream (Nf)) 1 applic TOPICAL BID KEN; Protocol Pharmacy Consult (Vancomycin Per Pharmacy*) 1 note FOLLOW UP .VANC PER PHARMACY [facility]; Protocol Pharmacy Consult (Zosyn Per Pharmacy*) 1 note FOLLOW UP .ZOSYN PER PHARMACY [facility] Pharmacy Profile Note (Vancomycin Trough Check) 1 note FOLLOW UP 929 ONE Stop: 04/09/19 09:31 Tramadol HCl (Ultram*) 50 mg PO Q6H PRN Reason: PAIN Vital Signs - 8 hr 04/07/19 04/07/19 04/07/19 08:58 12:00 14:26 Temperature 97.5 F 98.5 F 98.7 F Pulse Rate 74 70 79 Respiratory 20 22 22 Rate Blood Pressure 128/82 122/76 110/63 (mmHg) O2 Sat by Pulse 99 98 99 Oximetry 04/07/19 04/07/19 15:25 15:32 Temperature 98.1 F 98.1 F Pulse Rate 74 74 Respiratory 20 20 Rate Blood Pressure 120/63 120/63 (mmHg) O2 Sat by Pulse 100 100 Oximetry Oxygen Devices in Use Now: None Appearance: NAD, laying in bed Ears/Nose/Mouth/Throat: Mucous Membranes Moist Respiratory: Symmetrical Chest Expansion and Respiratory Effort Skin: - - See skin note below Neurological: Alert and Oriented x 3 Result Diagrams: 04/14/19 06:09 04/14/19 06:09 Microbiology and Other Data: Microbiology 04/06/19 11:21 Gram Stain - Final Leg Left Wound Culture - Preliminary Stenotrophomas Maltophilia Staphylococcus Aureus 04/04/19 23:31 Aerobic Blood Culture - Preliminary Blood Venous No Growth Day 2 Anaerobic Blood Culture - Preliminary No Growth Day 2 04/04/19 23:31 Aerobic Blood Culture - Preliminary Blood Venous No Growth Day 2 Anaerobic Blood Culture - Preliminary No Growth Day 2 04/05/19 10:00 Nasal Screen MRSA (PCR) - Final Nasal Mrsa Not Detected Skin Deviation Note - Skin Deviation Findings Right lateral lower leg - There are 2 wounds measuring 5 cm x 3 cm x 0.2 cm. The wound base has some yellow slough and pink granulation tissue. The surrounding skin is intact. There is edema to the leg. There is serosang drainage from the wound. Left lateral lower leg - There is a large superficial wound, measuring 8.5 cm x 7.5 cm x 0.1 cm. The wound base is pink granulation tissue. The surrounding skin is intact. There is edema to the leg. There is serosang drainage noted from the wound. There is some dry flaky skin to the leg. Assessment/Plan: Mr. Padilla is a 68 yo male with PMH significant for severe systolic CHF (EF 20-25%), CVA, Afib, morbid obesity, HTN, sick sinus syndrome s/p pacemaker placement, MARINO, chronic venous stasis, and mostly wheelchair bound due to a spinal injury; who slipped and fell at home and was unable to get up. He presented to the emergency room for evaluation. He was admitted to the hospital with open areas to his bilateral LEs and possible cellulitis. 1. Open areas to bilateral LEs. Suspect these are secondary to venous stasis and edema due to heart failure. Recommend washing the legs with soap and water. Apply calcium alginate to the open areas, ABD pads followed by rolled gauze. Change every other day or as needed for soiling. Consider referral to the wound center at discharge. 2. Morbid Obesity. BMI 49.9. 3. Diet. Heart Healthy diet. 4. Code Status. DNR 5. Disposition. Inpatient. Disposition per primary medicine team TIME SPENT: Time for this wound consultation was 25 minutes and 15 minutes was spent with the patient discussing past medical history; assessing, measuring, and photographing the wounds. Wound Problem/Plan Is Patient a Wound Clinic Patient: No Attending: Kari Terrazas
[2019-04-07] MEDS: traMADol TAB* 50 MG PO PRN (20:15)
[2019-04-08] MEDS: ZOSYN 3.375 GM Q8H per EXTENDED INFUSION IVPB SCH ×4 (05:10→13:44)
[2019-04-08 07:19] LABS: Hematocrit 39 % (42-52); Hemoglobin 12.5 g/dL (14.0-18.0); Mean Corpuscular HGB Conc 32 g/dL (31-36); Mean Corpuscular Hemoglobin 30 pg (27-31); Mean Corpuscular Volume 91 fL (80-94); Mean Platelet Volume 8.6 fL (7.4-10.4); Platelet Count 264 10^3/uL (150-450); Red Blood Count 4.24 10^6 /uL (4.18-5.48); Red Cell Distribution Width 15 % (10.5-15); White Blood Count 10.2 10^3/uL (3.5-10.8)
[2019-04-08 07:38] LABS: BUN/Creatinine Ratio 16.7 (8-20); Calcium 8.2 mg/dL (8.6-10.3); EGFR African American 163.1 (>60); EGFR Non-African American 134.8 (>60); Magnesium 1.7 mg/dL (1.9-2.7); Phosphorus 2.1 mg/dL (2.5-5.0)
[2019-04-08] MEDS: KETOCONAZOLE 2% TOPICAL SCH ×2 (09:01→20:35)
[2019-04-08] MEDS: Vancomycin(*) 1,000 MG in NS 0.9% 250 ML* 250 ML IVPB SCH (09:01)
[2019-04-08] MEDS: CMCS: Dabigatran CAP(NF) 150 MG CAP PO SCH ×2 (09:02→20:34)
[2019-04-08] MEDS: traMADol TAB* 50 MG PO PRN ×2 (09:05→20:35)
[2019-04-08] MEDS ORDERED: Magnesium Sulfate IV* 2 GM in NS 0.9% 100 ML* 100 ML IV ONE (09:47)
--- NOTE | 2019-04-08 09:50 | PN ---
Progress Note - Progress Note Date of Service: 04/07/19 Note: Progress Note -- Critical Care 24 hour events/significant events: -late entry note; patient was seen but note was not written -no events noted yesterday; was in bed and chair -no complaints offered yesterday Tele: Afib Vitals: reviewed yesterday - T 97.5, HR 74 Afib, BP 128/82, , sat 98% on RA Infusions: NS 75cc/hr Medications: reviewed Physical Exam: Constitutional: awake, alert, no distress, no diaphoresis Head: normocephalic, atraumatic Eyes: no pallor, no icterus ENT: moist mucous membranes Neck: soft, supple, no jvd, no stridor CVS: normal rate, regular, no murmur Resp: bilateral air entry, no rhales, no wheeze, no rhonchi, no acc muscle use Abdomen/GI: soft, nontender, nondistended, BS+ Ext/Msk: warm, pulses+, no edema Skin: intact, warm; Right lower extremity cellulitus and open wounds+, minimal erythema, chronic LE skin changes noted+ Neuro: awake, alert, orientedx3, moving all extremities, no gross focal deficit Labs: reviewed 04/08 Imaging: reviewed Assessment: 68y M w/pmhx of Severe LV systolic dysfunction, MCA CVA 2011, Afib on pradaxa, Obesity, HTN, SSS s/p BiV PPM, MARINO, Chronic venous stasis, spinal cord injury and almost wheelchair bound. Recent viral illness symptoms as patient. He was found at home, possibly fell off wheelchair, found on floor covered in urine/feces, bleeding from genitals, said to have been fallen for 4 hours after he possibly slipped at home. In ER he was hypotensive, elevated LA and WBC, ERIS, hyponatremia. Suspected sepsis and volume depletion. Empiric Abx started for possible venous stasis ulcers. Patient stated he also had loss of appetite. Improved BP and LA with fluid rescucitation on 04/04 and 04/05. -Septic Shock, fluid responsive; improved -LE cellulitus on venous ulcers -cholelithiasis -ERIS -Hyponatremia -hyperkalemia Afib, s/p PPM MARINO Spinal cord injury, wheelchair bound h/o CVA Chronic LV systolic dysfunction Plan: Neuro- -awake/alert -h/o spinal cord injury; using wheelchair; oob to chair -pt/ot eval -Delirium prec; avoid BDZ CVS- -BP imrpoved, positive balance -hold Antihypertensives today; restart likely tomorrow -cont NS, dec to 75cc/hr -Making urine; hold lasix , restart in next 24-48 hours to maintain euvolemia -cont dabigatran for Afib Ac -Afib; current Vpaced -Maintain MAP>65 Resp- -On RA; no distress -MARINO; nocturnal CPAP ordered -incentive spirometry if needed -restart diuretics once renal function stabilized to maintain euvolemia -Wean Fio2 to keep sat>92% -Bronchodilators PRN, Aspiration prec ID- -afebrile, wbc 25-23-12 -Sepsis was suspected; off pressors; on fluids -suspected source LE venous ulcers, purulent drainage noted -will obtain wound cultures, though I suspect polymicrobial colonization; check if MRSA -cont zosyn , vanco GI- -Nutrition: regular consistency cardiac diet -GI prophylaxis Renal- -ERIS; suspect from septic ATN and volume depletion; improving -making urine, positive balance -hyponatremia improving; also suspected to be from volume depletion -cont NS 75cc/hr -Hyperkalemia improved -can d/c miner -d/c IVF tomorrow 04/08 -strict I/O, replete to keep K>4, Mg>2 -miner as indicated Heme- hg stable -plt stable -dabigatran for Afib AC -no LE SCDs due to wounds Endo-Maintain BG<200, insulin protocol as needed Musculsk- pressure ulcer prophylaxis. oob to chair. pt/ot Wounds- LE wound care, wound care consult. IV abx, wound cultures. maintain elevated state. Nutrition- cardiac diet, reg consistency DVT prophylaxis: no SCD due to wounds; dabigatran PO Afib AC GI prophylaxis: not indicated Central Line: no Arterial Line: no Miner Cathetor: yes; can likely d/c in next 24 hours Disposition: transferred to med floor bed yet still in ICU Patient clinical status: stable Code Status: full code Kenrick Robles MD Campus Coordinator (Electronically Signed)
[2019-04-08] MEDS ORDERED: Magnesium Sulfate 2 GM IV* 2 GM/50 ML BAG IVPB ONE (11:00)
--- NOTE | 2019-04-08 11:26 | PN ---
Subjective Date of Service: 04/08/19 Interval History: Mr. Barfield is angry and annoyed that he cannot be discharged to home yet. We have strongly encouraged him to get out of bed to demonstrate his independence prior to discharge but he has yet to do so. He states that he is fine and that his niece will help take care of him. Per nursing staff, the niece is ill and has not been in to see him. It is unclear that she will be able to help him adequately. He denies other complaint. Objective Active Medications: Acetaminophen (Tylenol Tab*) 650 mg PO Q6H PRN Dabigatran (Pradaxa Cap(Nf)) 150 mg PO BID KEN Piperacillin Sod/Tazobactam (Sod 3.375 gm/ Sodium Chloride) 100 mls @ 25 mls/ hr IVPB Q8H KEN Sodium Chloride (Ns 0.9% 1000 Ml) 1,000 mls @ 75 mls/hr IV PER RATE KEN Ketoconazole (Nizoral 2% Cream (Nf)) 1 applic TOPICAL BID KEN; Protocol Pharmacy Consult (Zosyn Per Pharmacy*) 1 note FOLLOW UP .ZOSYN PER PHARMACY KEN Tramadol HCl (Ultram*) 50 mg PO Q6H PRN Vital Signs: Temp Pulse Resp BP Pulse Ox 98.2 F 66 18 115/70 97 04/08/19 07:12 04/08/19 07:12 04/08/19 09:05 04/08/19 07:12 04/08/19 07:12 Oxygen Devices in Use Now: None Appearance: Male sitting up in chair in NAD Eyes: No Scleral Icterus Ears/Nose/Mouth/Throat: Mucous Membranes Moist Neck: Trachea Midline Respiratory: Symmetrical Chest Expansion and Respiratory Effort, Clear to Auscultation Cardiovascular: NL Sounds; No Murmurs; No JVD, - - + LE edema, venous stasis changes Abdominal: NL Sounds; No Tenderness; No Distention Skin: - - Dressings CDI, please see wound care consult note for recent images Neurological: Alert and Oriented x 3, NL Muscle Strength and Tone Nutrition: Taking PO's Result Diagrams: 04/08/19 06:49 04/08/19 06:49 Microbiology and Other Data: . Assess/Plan/Problems-Billing Assessment: Mr. Barfield is a 68 yo M with a PMH chronic systolic CHF with EF 20/25% with biventricular pacemaker for sick sinus syndrome, CVA, chronic afib on pradaxa who is essentially wheelchair bound and was admitted on 04/05/19 after a fall with severe sepsis, hyponatremia, acute kidney injury. - Patient Problems (1) Severe sepsis Comment: - Resolved. Leukocytosis resolved, remains afebrile - Suspected secondary to venous stasis ulcers, purulent drainage noted - Plan to switch to keflex based on cultures. - Stop IVF - Rodríguez discontinued today, monitor for urine output (2) ERIS (acute kidney injury) Comment: - Resolved after hydration. (3) Chronic systolic (congestive) heart failure Comment: - No evidence of fluid overload - Stop IVF, consider resuming diurectics when stable. Carvediolol also still being held. (4) Afib Comment: - S/p pacemaker, continue pradaxa. (5) Fall Comment: - Secondary to sepsis - Appreciate PT eval, recommends rehab at discharge. Strongly encouraged patient to demonstrate independence today if he hopes to return home. (6) Hyponatremia Comment: - Resolved with fluids and treatment of sepsis (7) Hypomagnesemia Comment: - Repleted (8) MARINO (obstructive sleep apnea) Comment: - Pt is non-compliant with CPAP. (9) DVT prophylaxis Comment: - pradaxa (10) DNR (do not resuscitate) Comment: Status and Disposition: Inpatient. May need rehab but he is very hopeful that he can return home, lives at [facility].
[2019-04-08] MEDS: Cephalexin CAP* 500 MG PO SCH ×2 (17:30→20:35)
[2019-04-09 07:08] LABS: Hematocrit 40 % (42-52); Hemoglobin 12.8 g/dL (14.0-18.0); Mean Corpuscular HGB Conc 32 g/dL (31-36); Mean Corpuscular Hemoglobin 30 pg (27-31); Mean Corpuscular Volume 92 fL (80-94); Mean Platelet Volume 8.1 fL (7.4-10.4); Platelet Count 257 10^3/uL (150-450); Red Blood Count 4.33 10^6 /uL (4.18-5.48); Red Cell Distribution Width 16 % (10.5-15); White Blood Count 8.8 10^3/uL (3.5-10.8)
[2019-04-09 07:30] LABS: BUN/Creatinine Ratio 18.4 (8-20); Calcium 8.5 mg/dL (8.6-10.3); EGFR Non-African American 170.3 (>60); Magnesium 1.7 mg/dL (1.9-2.7); Phosphorus 2.3 mg/dL (2.5-5.0); Potassium 4.3 mmol/L (3.5-5.0)
[2019-04-09] MEDS ORDERED: Magnesium Sulfate 2 GM IV* 2 GM/50 ML BAG IVPB ONE (08:50)
[2019-04-09] MEDS ORDERED: Vancomycin Trough Check NOTE FOLLOW UP ONE (09:30)
[2019-04-09] MEDS: Cephalexin CAP* 500 MG PO SCH ×4 (10:02→21:51)
[2019-04-09] MEDS: traMADol TAB* 50 MG PO PRN ×2 (10:02→18:00)
[2019-04-09] MEDS: CMCS: Dabigatran CAP(NF) 150 MG CAP PO SCH ×2 (10:03→21:51)
[2019-04-09] MEDS: KETOCONAZOLE 2% TOPICAL SCH ×2 (10:03→21:53)
[2019-04-09 10:27] LABS: EGFR African American 188.2 (>60); EGFR Non-African American 155.5 (>60)
[2019-04-09 10:44] LABS: Vancomycin Trough 6.4 mcg/mL
--- NOTE | 2019-04-09 19:11 | PN ---
Subjective Date of Service: 04/09/19 Interval History: Received call from nursing that patient refusing physical therapy and demanding discharge. Patient assessed at bedside and was initially very pressured in speech and yelling intermittently. Patient reports he does not understand why we need him to be evaluated by physical therapy as he is "fine". Discussed events leading up to admission and patient reports "I has home sick for a week and did not know " arguing that therefore he should be able to go home. Denies cp, sob, palpitations, nausea, vomiting, diarrhea. Objective Active Medications: Acetaminophen (Tylenol Tab*) 650 mg PO Q6H PRN PRN Reason: FEVER/PAIN Cephalexin HCl (Keflex Cap*) 500 mg PO QID [facility] Stop: 04/15/19 13:01 Last Admin: 04/09/19 18:00 Dose: 500 mg Dabigatran (Pradaxa Cap(Nf)) 150 mg PO BID [facility] Last Admin: 04/09/19 10:03 Dose: 150 mg Ketoconazole (Nizoral 2% Cream (Nf)) 1 applic TOPICAL BID [facility]; Protocol Last Admin: 04/09/19 10:03 Dose: 1 applic Magnesium Oxide (Magox 400 Tab*) 400 mg PO BID [facility] Tramadol HCl (Ultram*) 50 mg PO Q6H PRN PRN Reason: PAIN Last Admin: 04/09/19 18:00 Dose: 50 mg Vital Signs - 8 hr 04/09/19 04/09/19 04/09/19 11:35 15:19 18:00 Temperature 97.3 F 98.0 F Pulse Rate 52 69 Respiratory 18 24 18 Rate Blood Pressure 117/62 111/60 (mmHg) O2 Sat by Pulse 100 100 Oximetry Oxygen Devices in Use Now: None Appearance: Comfortable, NAD Eyes: No Scleral Icterus Ears/Nose/Mouth/Throat: Clear Oropharnyx, Mucous Membranes Moist Neck: NL Appearance and Movements; NL JVP Respiratory: Symmetrical Chest Expansion and Respiratory Effort, Clear to Auscultation Cardiovascular: NL Sounds; No Murmurs; No JVD, RRR, - - Non pitting edema Abdominal: NL Sounds; No Tenderness; No Distention Lymphatic: No Cervical Adenopathy Skin: - - Venous statis changed of bilateral le. Open area left lateral sue and smaller area to left anterior sue. Also open area to right sue. Mild surrounding redness, but no streaking or warmth Neurological: Alert and Oriented x 3 Nutrition: Taking PO's Result Diagrams: 04/09/19 06:45 04/09/19 09:55 Additional Lab and Data: Laboratory Results - last 24 hr 04/09/19 04/09/19 04/09/19 06:45 06:45 09:55 WBC 8.8 RBC 4.33 Hgb 12.8 L Hct 40 L MCV 92 MCH 30 MCHC 32 RDW 16 H Plt Count 257 MPV 8.1 Sodium 134 L Potassium 4.3 Chloride 105 Carbon Dioxide 25 Anion Gap 4 BUN 9 9 Creatinine 0.49 L 0.53 L Est GFR ( Amer) 206.0 188.2 Est GFR (Non-Af Amer) 170.3 155.5 BUN/Creatinine Ratio 18.4 Glucose 104 H Calcium 8.5 L Phosphorus 2.3 L Magnesium 1.7 L Vancomycin Trough 6.4 Microbiology and Other Data: . Microbiology 04/04/19 23:31 Blood Venous Aerobic Blood Culture - Preliminary No Growth Day 4 04/04/19 23:31 Blood Venous Anaerobic Blood Culture - Preliminary No Growth Day 4 04/04/19 23:31 Blood Venous Aerobic Blood Culture - Preliminary No Growth Day 4 04/04/19 23:31 Blood Venous Anaerobic Blood Culture - Preliminary No Growth Day 4 04/06/19 11:21 Leg Left Gram Stain - Final 04/06/19 11:21 Leg Left Wound Culture - Final Stenotrophomas Maltophilia Staphylococcus Aureus 04/05/19 10:00 Nasal Nasal Screen MRSA (PCR) - Final Mrsa Not Detected Assess/Plan/Problems-Billing Assessment: Mr. Barfield is a 68 yo M with a H chronic systolic CHF with EF 20/25% with biventricular pacemaker for sick sinus syndrome, CVA, chronic afib on pradaxa who is essentially wheelchair bound and was admitted on 04/05/19 after a fall with severe sepsis, hyponatremia, acute kidney injury. - Patient Problems (1) Compliance poor Comment: - Patient refusing to participate in physical therapy to deem him safe for discharge home. This is concerning as patient was brought in due to fall and spending significant time on floor. Does not seem to understanding severity of situation that lead to admission. Pysch consult requested for capacity. (2) Severe sepsis Comment: - Resolved. Leukocytosis resolved, remains afebrile - Suspected secondary to venous stasis ulcers, purulent drainage noted - Plan to switch to keflex based on cultures. - Stop IVF - Rodríguez discontinued today, monitor for urine output (3) Hyponatremia Comment: - Resolved with fluids and treatment of sepsis (4) ERIS (acute kidney injury) Comment: - Resolved after hydration. (5) Cholelithiases Comment: - No inflammatory change of biliary obstruction noted. - Asymptomatic - Follow up as outpatient (6) Afib Comment: - S/p pacemaker, continue pradaxa. (7) Chronic systolic (congestive) heart failure Comment: - No evidence of fluid overload - Stop IVF - Consider resuming diurectics when stable. - Carvediolol restarted at lower dose. (8) Fall Comment: - Secondary to sepsis - Appreciate PT eval, recommends rehab at discharge. - Strongly encouraged patient to demonstrate independence today if he hopes to return home. (9) MARINO (obstructive sleep apnea) Comment: - Pt is non-compliant with CPAP. (10) DNR (do not resuscitate) Comment: (11) DVT prophylaxis Comment: - pradaxa Status and Disposition: Inpatient. May need rehab but he is very hopeful that he can return home, lives at [facility]. Attending: Sherlyn Barry
[2019-04-09] MEDS: Carvedilol TAB* 3.125 MG PO SCH (21:51)
[2019-04-10 05:59] LABS: Hematocrit 41 % (42-52); Hemoglobin 13.2 g/dL (14.0-18.0); Mean Corpuscular HGB Conc 33 g/dL (31-36); Mean Corpuscular Hemoglobin 30 pg (27-31); Mean Corpuscular Volume 92 fL (80-94); Mean Platelet Volume 7.4 fL (7.4-10.4); Platelet Count 264 10^3/uL (150-450); Red Cell Distribution Width 15 % (10.5-15); White Blood Count 9.6 10^3/uL (3.5-10.8)
[2019-04-10 06:13] LABS: Calcium 8.7 mg/dL (8.6-10.3); Magnesium 1.7 mg/dL (1.9-2.7); Potassium 4.4 mmol/L (3.5-5.0)
[2019-04-10 06:19] LABS: BUN/Creatinine Ratio 20.5 (8-20); EGFR African American 233.3 (>60); EGFR Non-African American 192.8 (>60); Phosphorus 2.5 mg/dL (2.5-5.0)
[2019-04-10] MEDS ORDERED: Magnesium Sulfate 2 GM IV* 2 GM/50 ML BAG IVPB ONE (07:37)
[2019-04-10] MEDS: CMCS: Dabigatran CAP(NF) 150 MG CAP PO SCH ×2 (07:57→22:06)
[2019-04-10] MEDS: traMADol TAB* 50 MG PO PRN ×2 (07:58→18:25)
[2019-04-10] MEDS: Cephalexin CAP* 500 MG PO SCH ×4 (07:58→22:06)
[2019-04-10] MEDS: Carvedilol TAB* 3.125 MG PO SCH ×2 (07:58→22:06)
[2019-04-10] MEDS: Magnesium Oxide TAB* 400 MG PO SCH ×2 (07:58→22:06)
[2019-04-10] MEDS: KETOCONAZOLE 2% TOPICAL SCH ×2 (09:40→22:07)
--- NOTE | 2019-04-10 09:49 | CONSULT ---
Consult Consult: Consult for Medical Decision Making Capacity S: Psychiatry is asked to evaluate in this 68 year old white male for depression and anxiety. He denied past psychiatric history . He is admitted to the Hospitalist service for multiple medical co-morbidities that include sepsis , hyponatremia , A fib and Heart Failure. The primary medical team is suggesting treatment options and physical therapy and he is not cooperative with their recommendations. He reported living alone not having support at home. Both of his children have not spoken to him in several years. He did not know what medications he is on. He did not know his current medical conditions. He did not know the year or name of hospital. He was unable to understand the consequences of refusing treatment. He said " I would be fine if I went home now." He said that he is able to do things on his own at home. He was unable to acknowledge the severity of his illness. He denied access to firearms. He denied suicidal and or homicidal ideation, intent or plan. O: 68 year old obese male appears older than stated age obese with bandages around his legs and evidence of infection , dressed in hospital gown, uncooperative, irritable with loud speech. Restricted affect. Circumstantial thought process. No delusions or preoccupations. He denied SI or HI. He knows the month and day and current president. He doesnt know the year, hospital name. Concentration and abstraction not intact. Poor insight and judgment. A/P: Capacity: DX: Adjustment disorder. Unspecified neuro- cognitive disorder #Patient doesnt require inpatient psychiatric admission at this time. # Patient lacks the capacity to make medical decisions for himself. He is able to make a choice. He is unable to appreciate the risks of refusing treatment and lacks a overall understanding of his current medical conditions, treatment options, as well as potential benefits of receiving treatment. The consulting provider Patt was contacted and informed of the following recommendations, and is in agreement with the plan. Thank you for the consult. Patient informed of follow up care resources and that if he becomes suicidal to call 911. He was also notified 24 hour availability of the ER. As capacity is subject to change at any time, feel free to consult Psychiatry again in the event of any changes.
[2019-04-10] MEDS: Acetaminophen TAB* 325 MG PO PRN (18:25)
--- NOTE | 2019-04-10 19:00 | PN ---
Subjective Date of Service: 04/10/19 Interval History: Patient demanding discharge today and stating he will leave A. Denies fever, chills, cp, sob, palpitations, nausea, vomiting. Objective Active Medications: Acetaminophen (Tylenol Tab*) 650 mg PO Q6H PRN PRN Reason: FEVER/PAIN Last Admin: 04/10/19 18:25 Dose: 650 mg Carvedilol (Coreg Tab*) 3.125 mg PO BID [facility] Last Admin: 04/10/19 07:58 Dose: 3.125 mg Cephalexin HCl (Keflex Cap*) 500 mg PO QID [facility] Stop: 04/15/19 13:01 Last Admin: 04/10/19 18:25 Dose: 500 mg Dabigatran (Pradaxa Cap(Nf)) 150 mg PO BID [facility] Last Admin: 04/10/19 07:57 Dose: 150 mg Ketoconazole (Nizoral 2% Cream (Nf)) 1 applic TOPICAL BID [facility]; Protocol Last Admin: 04/10/19 09:40 Dose: 1 applic Magnesium Oxide (Magox 400 Tab*) 400 mg PO BID [facility] Last Admin: 04/10/19 07:58 Dose: 400 mg Tramadol HCl (Ultram*) 50 mg PO Q6H PRN PRN Reason: PAIN Last Admin: 04/10/19 18:25 Dose: 50 mg Vital Signs - 8 hr 04/10/19 04/10/19 04/10/19 11:10 16:13 18:25 Temperature 97.3 F 97.7 F Pulse Rate 60 68 Respiratory 17 22 20 Rate Blood Pressure 91/47 105/57 (mmHg) O2 Sat by Pulse 100 98 Oximetry Oxygen Devices in Use Now: None Appearance: Comfortable, NAD Eyes: No Scleral Icterus Ears/Nose/Mouth/Throat: Clear Oropharnyx, Mucous Membranes Moist Neck: NL Appearance and Movements; NL JVP Respiratory: Symmetrical Chest Expansion and Respiratory Effort, Clear to Auscultation Cardiovascular: NL Sounds; No Murmurs; No JVD, RRR, - - Bilateral +1 pitting edema Abdominal: NL Sounds; No Tenderness; No Distention Lymphatic: No Cervical Adenopathy Extremities: No Edema Skin: - Neurological: Alert and Oriented x 3, NL Muscle Strength and Tone - Dressing bilateral LE CDI Nutrition: Taking PO's Result Diagrams: 04/10/19 05:52 04/10/19 05:52 Additional Lab and Data: Laboratory Results - last 24 hr 04/10/19 04/10/19 05:52 05:52 WBC 9.6 RBC 4.40 Hgb 13.2 L Hct 41 L MCV 92 MCH 30 MCHC 33 RDW 15 Plt Count 264 MPV 7.4 Sodium 132 L Potassium 4.4 Chloride 104 Carbon Dioxide 23 Anion Gap 5 BUN 9 Creatinine 0.44 L Est GFR ( Amer) 233.3 Est GFR (Non-Af Amer) 192.8 BUN/Creatinine Ratio 20.5 H Glucose 114 H Calcium 8.7 Phosphorus 2.5 Magnesium 1.7 L Microbiology and Other Data: . Microbiology 04/04/19 23:31 Blood Venous Aerobic Blood Culture - Final No Growth Day 5 04/04/19 23:31 Blood Venous Anaerobic Blood Culture - Final No Growth Day 5 04/04/19 23:31 Blood Venous Aerobic Blood Culture - Final No Growth Day 5 04/04/19 23:31 Blood Venous Anaerobic Blood Culture - Final No Growth Day 5 04/06/19 11:21 Leg Left Gram Stain - Final 04/06/19 11:21 Leg Left Wound Culture - Final Stenotrophomas Maltophilia Staphylococcus Aureus 04/05/19 10:00 Nasal Nasal Screen MRSA (PCR) - Final Mrsa Not Detected Assess/Plan/Problems-Billing Assessment: Mr. Barfield is a 68 yo M with a H chronic systolic CHF with EF 20/25% with biventricular pacemaker for sick sinus syndrome, CVA, chronic afib on pradaxa who is essentially wheelchair bound and was admitted on 04/05/19 after a fall with severe sepsis, hyponatremia, acute kidney injury. - Patient Problems (1) Compliance poor Comment: - Patient refusing to participate in physical therapy to deem him safe for discharge home. This is concerning as patient was brought in due to fall and spending significant time on floor. Does not seem to understanding severity of situation that lead to admission. - Andrea consulted and does not believe patient has capacity to make his own medical decisions (2) Severe sepsis Comment: - Resolved. Leukocytosis resolved, remains afebrile - Suspected secondary to venous stasis ulcers, purulent drainage noted - Cont keflex based on cultures. (3) Hyponatremia Comment: - Resolving with fluids and treatment of sepsis - Very borderline low. - Cont to monitor (4) ERIS (acute kidney injury) Comment: - Resolved after hydration. (5) Cholelithiases Comment: - No inflammatory change of biliary obstruction noted. - Asymptomatic - Follow up as outpatient (6) Chronic systolic (congestive) heart failure Comment: - No evidence of fluid overload - Stop IVF - Consider resuming diurectics when stable. - Carvediolol restarted at lower dose. (7) Fall Comment: - Secondary to sepsis - Appreciate PT eval, recommends rehab at discharge. - Strongly encouraged patient to demonstrate independence today if he hopes to return home. (8) MARINO (obstructive sleep apnea) Comment: - Pt is non-compliant with CPAP. (9) DNR (do not resuscitate) Comment: (10) DVT prophylaxis Comment: - pradaxa Status and Disposition: Inpatient. Needs rehab. Psych said no capacity. Attending: Justin Lynn
[2019-04-11] MEDS: traMADol TAB* 50 MG PO PRN (05:41)
[2019-04-11 07:03] LABS: Hematocrit 39 % (42-52); Hemoglobin 12.6 g/dL (14.0-18.0); Mean Corpuscular HGB Conc 33 g/dL (31-36); Mean Corpuscular Hemoglobin 30 pg (27-31); Mean Corpuscular Volume 91 fL (80-94); Mean Platelet Volume 7.8 fL (7.4-10.4); Platelet Count 259 10^3/uL (150-450); Red Blood Count 4.26 10^6 /uL (4.18-5.48); Red Cell Distribution Width 15 % (10.5-15); White Blood Count 7.6 10^3/uL (3.5-10.8)
[2019-04-11 07:17] LABS: BUN/Creatinine Ratio 18.5 (8-20); Calcium 8.7 mg/dL (8.6-10.3); EGFR African American 184.2 (>60); EGFR Non-African American 152.2 (>60); Magnesium 1.8 mg/dL (1.9-2.7); Phosphorus 2.7 mg/dL (2.5-5.0); Potassium 4.6 mmol/L (3.5-5.0)
[2019-04-11] MEDS: Acetaminophen TAB* 325 MG PO PRN (09:20)
[2019-04-11] MEDS: Magnesium Oxide TAB* 400 MG PO SCH ×2 (09:20→21:34)
[2019-04-11] MEDS: Cephalexin CAP* 500 MG PO SCH (09:20)
[2019-04-11] MEDS: CMCS: Dabigatran CAP(NF) 150 MG CAP PO SCH ×2 (09:21→21:33)
[2019-04-11] MEDS: Carvedilol TAB* 3.125 MG PO SCH ×2 (09:21→21:34)
[2019-04-11] MEDS: KETOCONAZOLE 2% TOPICAL SCH ×2 (09:27→21:35)
[2019-04-11] MEDS: Furosemide TAB* 20 MG PO SCH (13:09)
--- NOTE | 2019-04-11 15:58 | PN ---
Subjective Date of Service: 04/11/19 Interval History: Patient refused to engage in conversation with this proposal writer today, but did participate in ROS and allowed physical exam. Denies headache, dizziness, chest pain, sob, n/v/d, fever, chills. Niece in today to discuss plans and capacity. Updated niece on why patient's capacity was questioned and ultimately deemed not capable of making medical decision and she stated understanding. She requested that patient be evaluated by physical therapy while she was here so she could relay what patient's baseline is at home. She is willing to continue to check on him almost daily. She is also willing to assume responsibility for his medical decisions if he is discharged home. Objective Active Medications: Acetaminophen (Tylenol Tab*) 650 mg PO Q6H PRN PRN Reason: FEVER/PAIN Last Admin: 04/11/19 09:20 Dose: 650 mg Carvedilol (Coreg Tab*) 3.125 mg PO BID [facility] Last Admin: 04/11/19 09:21 Dose: 3.125 mg Dabigatran (Pradaxa Cap(Nf)) 150 mg PO BID [facility] Last Admin: 04/11/19 09:21 Dose: 150 mg Furosemide (Lasix Tab*) 20 mg PO DAILY [facility] Last Admin: 04/11/19 13:09 Dose: 20 mg Ketoconazole (Nizoral 2% Cream (Nf)) 1 applic TOPICAL BID [facility]; Protocol Last Admin: 04/11/19 09:27 Dose: 1 applic Magnesium Oxide (Magox 400 Tab*) 400 mg PO BID [facility] Last Admin: 04/11/19 09:20 Dose: 400 mg Tramadol HCl (Ultram*) 50 mg PO Q6H PRN PRN Reason: PAIN Last Admin: 04/11/19 05:41 Dose: 50 mg Trimethoprim/Sulfamethoxazole (Bactrim Ds 800/160 Tab*) 1 tab PO BID [facility] Vital Signs - 8 hr 04/11/19 04/11/19 04/11/19 08:00 08:13 11:41 Temperature 97.4 F 97.6 F Pulse Rate 70 60 Respiratory 20 22 20 Rate Blood Pressure 109/60 120/76 (mmHg) O2 Sat by Pulse 99 100 99 Oximetry Oxygen Devices in Use Now: None Appearance: Comfortable, NAD Eyes: No Scleral Icterus Ears/Nose/Mouth/Throat: Clear Oropharnyx, Mucous Membranes Moist Neck: NL Appearance and Movements; NL JVP Respiratory: Symmetrical Chest Expansion and Respiratory Effort, Clear to Auscultation Cardiovascular: NL Sounds; No Murmurs; No JVD, - - Bilateral +2 pitting edema Abdominal: NL Sounds; No Tenderness; No Distention Lymphatic: No Cervical Adenopathy Extremities: No Clubbing, Cyanosis Skin: - - Dressing to bilateral LE intact. Mild warmth noted to bilateral LE Neurological: Alert and Oriented x 3, NL Muscle Strength and Tone Nutrition: Taking PO's Result Diagrams: 04/11/19 06:33 04/11/19 06:33 Additional Lab and Data: Laboratory Results - last 24 hr 04/11/19 04/11/19 06:33 06:33 WBC 7.6 RBC 4.26 Hgb 12.6 L Hct 39 L MCV 91 MCH 30 MCHC 33 RDW 15 Plt Count 259 MPV 7.8 Sodium 134 L Potassium 4.6 Chloride 102 Carbon Dioxide 30 Anion Gap 2 BUN 10 Creatinine 0.54 L Est GFR ( Amer) 184.2 Est GFR (Non-Af Amer) 152.2 BUN/Creatinine Ratio 18.5 Glucose 107 H Calcium 8.7 Phosphorus 2.7 Magnesium 1.8 L Microbiology and Other Data: . Microbiology 04/04/19 23:31 Blood Venous Aerobic Blood Culture - Final No Growth Day 5 04/04/19 23:31 Blood Venous Anaerobic Blood Culture - Final No Growth Day 5 04/04/19 23:31 Blood Venous Aerobic Blood Culture - Final No Growth Day 5 04/04/19 23:31 Blood Venous Anaerobic Blood Culture - Final No Growth Day 5 04/06/19 11:21 Leg Left Gram Stain - Final 04/06/19 11:21 Leg Left Wound Culture - Final Stenotrophomas Maltophilia Staphylococcus Aureus 04/05/19 10:00 Nasal Nasal Screen MRSA (PCR) - Final Mrsa Not Detected Assess/Plan/Problems-Billing Assessment: Mr. Barfiled is a 68 yo M with a PMH chronic systolic CHF with EF 20/25% with biventricular pacemaker for sick sinus syndrome, CVA, chronic afib on pradaxa who is essentially wheelchair bound and was admitted on 04/05/19 after a fall with severe sepsis, hyponatremia, acute kidney injury. - Patient Problems (1) Compliance poor Comment: - Was refusing to participate in PT to prove he was safe of dc. Pysch consulted and does not believe patient has capacity to make his own medical decisions - Patient did participate today with emilia present. PT reports he would benefit from rehab ideally, but would also benefit from more help at home - Niece willing to assume responsibility for patient's medical decisions so that he can go home and not go to rehab facility. (2) Severe sepsis Comment: - Resolved. Leukocytosis resolved, remains afebrile - Suspected secondary to venous stasis ulcers, purulent drainage noted - Changed to Bactrim based on sensitivities and warmth noted today (3) Hyponatremia Comment: - Resolving with fluids and treatment of sepsis - Very borderline low. - Cont to monitor (4) ERIS (acute kidney injury) Comment: - Resolved after hydration. (5) Cholelithiases Comment: - No inflammatory change of biliary obstruction noted. - Asymptomatic - Follow up as outpatient (6) Chronic systolic (congestive) heart failure Comment: - No evidence of fluid overload - Stop IVF - Carvediolol restarted at lower dose on 04/09 - Resumed HCTZ today at lower dose. Consider increasing and resume Aldactone (7) Fall Comment: - Secondary to sepsis - Appreciate PT eval, recommends rehab and/or increase help at home (8) MARINO (obstructive sleep apnea) Comment: - Pt is non-compliant with CPAP. (9) DNR (do not resuscitate) Comment: (10) DVT prophylaxis Comment: - pradaxa Status and Disposition: Inpatient. Psych said no capacity. Attending: Justin Lynn
[2019-04-11] MEDS ORDERED: Magnesium Sulfate 2 GM IV* 2 GM/50 ML BAG IVPB ONE (16:01)
[2019-04-11] MEDS: Sulfamethox/Trimethoprim DS 800/160* TAB PO SCH (21:34)
[2019-04-12 07:23] LABS: Hematocrit 39 % (42-52); Hemoglobin 12.7 g/dL (14.0-18.0); Mean Corpuscular HGB Conc 32 g/dL (31-36); Mean Corpuscular Hemoglobin 30 pg (27-31); Mean Corpuscular Volume 92 fL (80-94); Mean Platelet Volume 8.1 fL (7.4-10.4); Platelet Count 254 10^3/uL (150-450); Red Cell Distribution Width 15 % (10.5-15); White Blood Count 8.2 10^3/uL (3.5-10.8)
[2019-04-12 07:48] LABS: Calcium 8.8 mg/dL (8.6-10.3); EGFR African American 201.3 (>60); EGFR Non-African American 166.4 (>60); Magnesium 1.8 mg/dL (1.9-2.7); Potassium 4.6 mmol/L (3.5-5.0)
[2019-04-12] MEDS ORDERED: Magnesium Sulfate 2 GM IV* 2 GM/50 ML BAG IVPB ONE (08:20)
[2019-04-12] MEDS: Magnesium Oxide TAB* 400 MG PO SCH ×2 (08:49→20:34)
[2019-04-12] MEDS: CMCS: Dabigatran CAP(NF) 150 MG CAP PO SCH ×2 (08:49→20:34)
[2019-04-12] MEDS: Sulfamethox/Trimethoprim DS 800/160* TAB PO SCH ×2 (08:49→20:33)
[2019-04-12] MEDS: Furosemide TAB* 20 MG PO SCH (08:49)
[2019-04-12] MEDS: Carvedilol TAB* 3.125 MG PO SCH ×2 (08:49→20:34)
[2019-04-12] MEDS: KETOCONAZOLE 2% TOPICAL SCH (12:42)
[2019-04-12] MEDS: Nystatin TOP POWDER* 15 GM BTL TOPICAL SCH ×2 (15:10→20:32)
--- NOTE | 2019-04-12 15:17 | PN ---
Subjective Date of Service: 04/12/19 Interval History: Resting in bed on assessment. Immediately stating he is going home when this service writer enters room. Denies fever, chills, cp, sob, palpitations, nausea, vomiting. Objective Active Medications: Acetaminophen (Tylenol Tab*) 650 mg PO Q6H PRN PRN Reason: FEVER/PAIN Last Admin: 04/11/19 09:20 Dose: 650 mg Carvedilol (Coreg Tab*) 3.125 mg PO BID [facility] Last Admin: 04/12/19 08:49 Dose: 3.125 mg Dabigatran (Pradaxa Cap(Nf)) 150 mg PO BID [facility] Last Admin: 04/12/19 08:49 Dose: 150 mg Furosemide (Lasix Tab*) 20 mg PO DAILY [facility] Last Admin: 04/12/19 08:49 Dose: 20 mg Magnesium Oxide (Magox 400 Tab*) 400 mg PO BID [facility] Last Admin: 04/12/19 08:49 Dose: 400 mg Nystatin (Nystatin Top Powder*) 1 applic TOPICAL TID [facility] Last Admin: 04/12/19 15:10 Dose: 1 applic Trimethoprim/Sulfamethoxazole (Bactrim Ds 800/160 Tab*) 1 tab PO BID [facility] Last Admin: 04/12/19 08:49 Dose: 1 tab Vital Signs - 8 hr 04/12/19 04/12/19 04/12/19 07:24 07:49 07:50 Temperature 97.6 F Pulse Rate 63 Respiratory 20 20 Rate Blood Pressure 115/68 (mmHg) O2 Sat by Pulse 100 100 Oximetry 04/12/19 11:10 Temperature 97.3 F Pulse Rate 67 Respiratory 20 Rate Blood Pressure 111/63 (mmHg) O2 Sat by Pulse 98 Oximetry Oxygen Devices in Use Now: None Appearance: Comfortable, NAD Eyes: No Scleral Icterus Ears/Nose/Mouth/Throat: Clear Oropharnyx, Mucous Membranes Moist Neck: NL Appearance and Movements; NL JVP Respiratory: Symmetrical Chest Expansion and Respiratory Effort, Clear to Auscultation Cardiovascular: NL Sounds; No Murmurs; No JVD, RRR, - - Bilateral +1 to +2 edema Abdominal: NL Sounds; No Tenderness; No Distention Lymphatic: No Cervical Adenopathy Extremities: No Clubbing, Cyanosis Skin: - - Wounds on bilateral legs. See wound note for pictures. No purulent drainage today. More granulated tissue than previously. Neurological: Alert and Oriented x 3 Nutrition: Taking PO's Result Diagrams: 04/12/19 06:48 04/12/19 06:48 Additional Lab and Data: Laboratory Results - last 24 hr 04/12/19 04/12/19 06:48 06:48 WBC 8.2 RBC 4.30 Hgb 12.7 L Hct 39 L MCV 92 MCH 30 MCHC 32 RDW 15 Plt Count 254 MPV 8.1 Sodium 132 L Potassium 4.6 Chloride 100 L Carbon Dioxide 29 Anion Gap 3 BUN 10 Creatinine 0.50 L Est GFR ( Amer) 201.3 Est GFR (Non-Af Amer) 166.4 BUN/Creatinine Ratio 20.0 Glucose 107 H Calcium 8.8 Magnesium 1.8 L Microbiology and Other Data: . Microbiology 04/04/19 23:31 Blood Venous Aerobic Blood Culture - Final No Growth Day 5 04/04/19 23:31 Blood Venous Anaerobic Blood Culture - Final No Growth Day 5 04/04/19 23:31 Blood Venous Aerobic Blood Culture - Final No Growth Day 5 04/04/19 23:31 Blood Venous Anaerobic Blood Culture - Final No Growth Day 5 04/06/19 11:21 Leg Left Gram Stain - Final 04/06/19 11:21 Leg Left Wound Culture - Final Stenotrophomas Maltophilia Staphylococcus Aureus 04/05/19 10:00 Nasal Nasal Screen MRSA (PCR) - Final Mrsa Not Detected Assess/Plan/Problems-Billing Assessment: Mr. Barfield is a 68 yo M with a PMH chronic systolic CHF with EF 20/25% with biventricular pacemaker for sick sinus syndrome, CVA, chronic afib on pradaxa who is essentially wheelchair bound and was admitted on 04/05/19 after a fall with severe sepsis, hyponatremia, acute kidney injury. - Patient Problems (1) Wound of lower extremity Comment: - Wound on bilateral LE - No purulent drainage today. More granulated tissue - Will need home nursing for wound care if he goes home - Cont dressing changes (2) Compliance poor Comment: - Was refusing to participate in PT to prove he was safe of dc. Andrea consulted and does not believe patient has capacity to make his own medical decisions - Patient did participate yesterday with neice present. PT reports he would benefit from rehab ideally, but would also benefit from more help at home - Niece willing to assume responsibility for patient's medical decisions so that he can go home and not go to rehab facility. (3) Severe sepsis Comment: - Resolved. Leukocytosis resolved, remains afebrile - Suspected secondary to venous stasis ulcers, purulent drainage noted - Changed to Bactrim based on sensitivities (4) Hyponatremia Comment: - Very borderline low. - Cont to monitor (5) ERIS (acute kidney injury) Comment: - Resolved after hydration. (6) Cholelithiases Comment: - No inflammatory change of biliary obstruction noted. - Asymptomatic - Follow up as outpatient (7) Chronic systolic (congestive) heart failure Comment: - No evidence of fluid overload - Stop IVF - Carvediolol restarted at lower dose on 04/09 - Resumed HCTZ yesterday at lower dose. Consider increasing and resuming Aldactone (8) Fall Comment: - Secondary to sepsis - Appreciate PT eval, recommends rehab and/or increase help at home (9) MARINO (obstructive sleep apnea) Comment: - Pt is non-compliant with CPAP. (10) DNR (do not resuscitate) Comment: (11) DVT prophylaxis Comment: - pradaxa Status and Disposition: Inpatient. Psych said no capacity. Attending: Justin Lynn
[2019-04-13 07:10] LABS: Hematocrit 40 % (42-52); Mean Corpuscular HGB Conc 32 g/dL (31-36); Mean Corpuscular Hemoglobin 30 pg (27-31); Mean Corpuscular Volume 92 fL (80-94); Mean Platelet Volume 7.8 fL (7.4-10.4); Platelet Count 264 10^3/uL (150-450); Red Blood Count 4.37 10^6 /uL (4.18-5.48); Red Cell Distribution Width 15 % (10.5-15); White Blood Count 7.5 10^3/uL (3.5-10.8)
[2019-04-13 07:26] LABS: BUN/Creatinine Ratio 16.9 (8-20); Calcium 8.9 mg/dL (8.6-10.3); EGFR African American 166.3 (>60); EGFR Non-African American 137.4 (>60); Potassium 4.8 mmol/L (3.5-5.0)
[2019-04-13] MEDS: Sulfamethox/Trimethoprim DS 800/160* TAB PO SCH ×2 (09:25→21:45)
[2019-04-13] MEDS: Magnesium Oxide TAB* 400 MG PO SCH ×2 (09:25→21:44)
[2019-04-13] MEDS: Carvedilol TAB* 3.125 MG PO SCH ×2 (09:25→21:44)
[2019-04-13] MEDS: Furosemide TAB* 20 MG PO SCH (09:25)
[2019-04-13] MEDS: CMCS: Dabigatran CAP(NF) 150 MG CAP PO SCH ×2 (09:26→21:44)
[2019-04-13] MEDS: Nystatin TOP POWDER* 15 GM BTL TOPICAL SCH ×3 (09:26→22:32)
--- NOTE | 2019-04-13 16:09 | ADMNOTE ---
Subjective Date of Service: 04/13/19 Family History: Unchanged from Admission Social History: Unchanged from Admission Past Medical History: Unchanged from Admission Review of Systems - Measurements Intake and Output: Intake and Output Last 24 Hours 04/11/19 04/12/19 04/13/19 04/14/19 06:59 06:59 06:59 06:59 Intake Total 800 1790 1915 1030 Output Total 492 880 7582 550 Balance 120 910 715 480 Weight 349 lb Intake: IV Fluids 0 NS (0.9%) 0 IVPB 55 Mag 55 Oral 800 1790 1860 1030 Output: Urine 188 413 8734 550 Other: Estimated Void Small # Bowel Movements 0 1 0 Estimated Stool Amount Large Large # Voids 1 Objective Active Medications: Acetaminophen (Tylenol Tab*) 650 mg PO Q6H PRN PRN Reason: FEVER/PAIN Last Admin: 04/11/19 09:20 Dose: 650 mg Carvedilol (Coreg Tab*) 3.125 mg PO BID [facility] Last Admin: 04/13/19 09:25 Dose: 3.125 mg Dabigatran (Pradaxa Cap(Nf)) 150 mg PO BID [facility] Last Admin: 04/13/19 09:26 Dose: 150 mg Furosemide (Lasix Tab*) 20 mg PO DAILY [facility] Last Admin: 04/13/19 09:25 Dose: 20 mg Magnesium Oxide (Magox 400 Tab*) 400 mg PO BID [facility] Last Admin: 04/13/19 09:25 Dose: 400 mg Nystatin (Nystatin Top Powder*) 1 applic TOPICAL TID [facility] Last Admin: 04/13/19 09:26 Dose: 1 applic Trimethoprim/Sulfamethoxazole (Bactrim Ds 800/160 Tab*) 1 tab PO BID [facility] Last Admin: 04/13/19 09:25 Dose: 1 tab Vital Signs - 8 hr 04/13/19 11:22 Temperature 97.6 F Pulse Rate 65 Respiratory 22 Rate Blood Pressure 91/62 (mmHg) O2 Sat by Pulse 100 Oximetry Oxygen Devices in Use Now: None Result Diagrams: 04/13/19 06:51 04/13/19 06:51 Additional Lab and Data: Laboratory Results - last 24 hr 04/12/19 04/12/19 06:48 06:48 WBC 8.2 RBC 4.30 Hgb 12.7 L Hct 39 L MCV 92 MCH 30 MCHC 32 RDW 15 Plt Count 254 MPV 8.1 Sodium 132 L Potassium 4.6 Chloride 100 L Carbon Dioxide 29 Anion Gap 3 BUN 10 Creatinine 0.50 L Est GFR ( Amer) 201.3 Est GFR (Non-Af Amer) 166.4 BUN/Creatinine Ratio 20.0 Glucose 107 H Calcium 8.8 Magnesium 1.8 L Microbiology and Other Data: Microbiology 04/06/19 11:21 Gram Stain - Final Leg Left Wound Culture - Preliminary Stenotrophomas Maltophilia Staphylococcus Aureus 04/04/19 23:31 Aerobic Blood Culture - Preliminary Blood Venous No Growth Day 2 Anaerobic Blood Culture - Preliminary No Growth Day 2 04/04/19 23:31 Aerobic Blood Culture - Preliminary Blood Venous No Growth Day 2 Anaerobic Blood Culture - Preliminary No Growth Day 2 04/05/19 10:00 Nasal Screen MRSA (PCR) - Final Nasal Mrsa Not Detected Assess/Plan/Problems-Billing Assessment: Mr. Barfield is a 68 yo M with a PMH chronic systolic CHF with EF 20/25% with biventricular pacemaker for sick sinus syndrome, CVA, chronic afib on pradaxa who is essentially wheelchair bound and was admitted on 04/05/19 after a fall with severe sepsis, hyponatremia, acute kidney injury. - Patient Problems (1) Cholelithiases Comment: - No inflammatory change of biliary obstruction noted. - Asymptomatic - Follow up as outpatient (2) Compliance poor Comment: - Was refusing to participate in PT to prove he was safe of dc. Andrea consulted and does not believe patient has capacity to make his own medical decisions - Patient did participate yesterday with neice present. PT reports he would benefit from rehab ideally, but would also benefit from more help at home - Niece willing to assume responsibility for patient's medical decisions so that he can go home and not go to rehab facility. (3) Hyponatremia Current Visit: Yes Status: Acute Code(s): E87.1 - HYPO-OSMOLALITY AND HYPONATREMIA SNOMED Code(s): 39139429 Comment: - Very borderline low. - Cont to monitor (4) Severe sepsis Current Visit: Yes Status: Acute Code(s): A41.9 - SEPSIS, UNSPECIFIED ORGANISM; R65.20 - SEVERE SEPSIS WITHOUT SEPTIC SHOCK SNOMED Code(s): 41296758 Comment: - Resolved. Leukocytosis resolved, remains afebrile - Suspected secondary to venous stasis ulcers, purulent drainage noted - Changed to Bactrim based on sensitivities (5) Wound of lower extremity Comment: - Wound on bilateral LE - No purulent drainage today. More granulated tissue - Will need home nursing for wound care if he goes home - Cont dressing changes (6) ERIS (acute kidney injury) Comment: - Resolved after hydration. (7) Chronic systolic (congestive) heart failure Comment: - No evidence of fluid overload - Carvediolol restarted at lower dose on 04/09 - Resumed HCTZ 04/11 at lower dose. Consider increasing and resuming Aldactone (8) MARINO (obstructive sleep apnea) Comment: - Pt is non-compliant with CPAP. (9) DNR (do not resuscitate) Comment: (10) DVT prophylaxis Comment: - pradaxa Status and Disposition: Inpatient. Psych said no capacity.
--- NOTE | 2019-04-13 16:41 | PN ---
Subjective Date of Service: 04/13/19 Interval History: Per niece - uses a lift chair for the last 3-4 years. He does not walk at baseline - is wheelchair bound - he is able to transfer himself with a seat lift , and go to the bathroom independently. The Niece think he can manage at home he states he is very simple but does well by himself - watches TV all day, Takes his medication, goes down stairs to get a hair cut. Has gone to wound care before and "doesn't make a difference - it will heal then another one will open back up" - Per niece - he sleeps in the chair. She cares for him daily or her daughter stops in. She thinks he is capable of making decisions The patient on exam if very upset that he is not being sent home Family History: Unchanged from Admission Social History: Unchanged from Admission Past Medical History: Unchanged from Admission Objective Active Medications: Acetaminophen (Tylenol Tab*) 650 mg PO Q6H PRN PRN Reason: FEVER/PAIN Last Admin: 04/11/19 09:20 Dose: 650 mg Carvedilol (Coreg Tab*) 3.125 mg PO BID [facility] Last Admin: 04/13/19 09:25 Dose: 3.125 mg Dabigatran (Pradaxa Cap(Nf)) 150 mg PO BID [facility] Last Admin: 04/13/19 09:26 Dose: 150 mg Furosemide (Lasix Tab*) 20 mg PO DAILY [facility] Last Admin: 04/13/19 09:25 Dose: 20 mg Magnesium Oxide (Magox 400 Tab*) 400 mg PO BID [facility] Last Admin: 04/13/19 09:25 Dose: 400 mg Nystatin (Nystatin Top Powder*) 1 applic TOPICAL TID [facility] Last Admin: 04/13/19 09:26 Dose: 1 applic Trimethoprim/Sulfamethoxazole (Bactrim Ds 800/160 Tab*) 1 tab PO BID [facility] Last Admin: 04/13/19 09:25 Dose: 1 tab Vital Signs - 8 hr 04/13/19 11:22 Temperature 97.6 F Pulse Rate 65 Respiratory 22 Rate Blood Pressure 91/62 (mmHg) O2 Sat by Pulse 100 Oximetry Oxygen Devices in Use Now: None Appearance: obese male upset waving his arms yelling - alert to self and place - PATIENT REFUSED EXAM Lines/Tubes/Other Access: Clean, Dry and Intact Peripheral IV Nutrition: Taking PO's Result Diagrams: 04/13/19 06:51 04/13/19 06:51 Microbiology and Other Data: Microbiology 04/04/19 23:31 Aerobic Blood Culture - Final Blood Venous No Growth Day 5 Anaerobic Blood Culture - Final No Growth Day 5 04/04/19 23:31 Aerobic Blood Culture - Final Blood Venous No Growth Day 5 Anaerobic Blood Culture - Final No Growth Day 5 04/06/19 11:21 Gram Stain - Final Leg Left Wound Culture - Final Stenotrophomas Maltophilia Staphylococcus Aureus 04/05/19 10:00 Nasal Screen MRSA (PCR) - Final Nasal Mrsa Not Detected Assess/Plan/Problems-Billing Assessment: Mr. Barfield is a 68 yo M with a PMH of chronic systolic HF with EF 20% with biventricular pacer for sick sinus syndrome, CVA, Chronic afib on Pradaxa who is essentially wheelchair bound and was admitted 04/05 after a fall with severe sepsis, hyponatremia and ERIS - Patient Problems (1) Severe sepsis Comment: - Resolved. Leukocytosis resolved, remains afebrile - Suspected secondary to venous stasis ulcers, purulent drainage noted - Changed to Bactrim based on sensitivities (2) Cholelithiases Comment: - No inflammatory change of biliary obstruction noted. - Asymptomatic - Follow up as outpatient (3) Compliance poor Comment: - Was refusing to participate in PT to prove he was safe of dc. Andrea consulted and does not believe patient has capacity to make his own medical decisions - Patient did participate yesterday with neice present. PT reports he would benefit from rehab ideally, but would also benefit from more help at home - Niece willing to assume responsibility for patient's medical decisions so that he can go home and not go to rehab facility. (4) Hyponatremia Comment: - Very borderline low. - Cont to monitor (5) Wound of lower extremity Comment: - Wound on bilateral LE - No purulent drainage today. More granulated tissue - Will need home nursing for wound care if he goes home - Cont dressing changes (6) ERIS (acute kidney injury) Comment: - Resolved after hydration. (7) Chronic systolic (congestive) heart failure Comment: - No evidence of fluid overload - Carvediolol restarted at lower dose on 04/09 - Resumed HCTZ 04/11 at lower dose. Consider increasing and resuming Aldactone (8) MARINO (obstructive sleep apnea) Comment: - Pt is non-compliant with CPAP. (9) Afib Comment: - S/p pacemaker, continue coreg & pradaxa. (10) DNR (do not resuscitate) Comment: (11) DVT prophylaxis Comment: - pradaxa Status and Disposition: inpatient. subacute vs home.
[2019-04-14 06:19] LABS: Hematocrit 39 % (42-52); Hemoglobin 12.8 g/dL (14.0-18.0); Mean Corpuscular HGB Conc 33 g/dL (31-36); Mean Corpuscular Hemoglobin 30 pg (27-31); Mean Corpuscular Volume 92 fL (80-94); Mean Platelet Volume 7.8 fL (7.4-10.4); Platelet Count 241 10^3/uL (150-450); Red Blood Count 4.21 10^6 /uL (4.18-5.48); Red Cell Distribution Width 15 % (10.5-15)
[2019-04-14 06:36] LABS: BUN/Creatinine Ratio 16.7 (8-20); Calcium 8.8 mg/dL (8.6-10.3); EGFR African American 163.1 (>60); EGFR Non-African American 134.8 (>60); Magnesium 1.9 mg/dL (1.9-2.7); Potassium 4.6 mmol/L (3.5-5.0)
[2019-04-14 06:41] LABS: ABS Basophils 0.1 10^3/ul (0-0.2); ABS Eosinophils 0.3 10^3/ul (0-0.6); ABS Lymphocytes 0.7 10^3/ul (1.0-4.8); ABS Monocytes 0.7 10^3/ul (0-0.8); Eosinophil % 3.4 %; Lymphocyte % 9.1 %
[2019-04-14] MEDS: CMCS: Dabigatran CAP(NF) 150 MG CAP PO SCH ×2 (08:13→21:22)
[2019-04-14] MEDS: Sulfamethox/Trimethoprim DS 800/160* TAB PO SCH ×2 (08:13→21:22)
[2019-04-14] MEDS: Furosemide TAB* 20 MG PO SCH (08:13)
[2019-04-14] MEDS: Carvedilol TAB* 3.125 MG PO SCH ×2 (08:13→21:22)
[2019-04-14] MEDS: Acetaminophen TAB* 325 MG PO PRN (08:14)
[2019-04-14] MEDS: Magnesium Oxide TAB* 400 MG PO SCH ×2 (08:14→21:22)
[2019-04-14] MEDS: Nystatin TOP POWDER* 15 GM BTL TOPICAL SCH ×3 (08:14→21:23)
--- NOTE | 2019-04-14 14:23 | PN ---
Subjective Date of Service: 04/14/19 Interval History: Discussed at length with niece and patient - home vs rehab. The niece is stating she will take responsibility for the patient going home and states he does really well at [facility]. The concern I have is the patient has been refusing PT services and it is unclear if the patient will be able to go home at his previous baseline. I have discussed with the nurse and piano case maker and the patient and his neice that we need better evaluation of his transfer status. if he can transfer I believe he could go back to his previous living arrangements. it would be more ideal for him luke go to rehab but neice and patient are refusing. The patient was found to not have capacity but I think this is also due to that his education level is very poor and has poor insight - which is not anything new for the patient. Per patient and niece he follows with his primary care closely and gets to his appointments by himself using [employer]. He is independent in getting himself downstairs for socialization, haircut ect at [facility]. Again, my concern is with his long hospitalization and if he has the strength to transfer in and out of his chair, bed ect. The plan will be to have PT evaluate again, I have asked piano case maker to touch base with the niece to see if we could get the patients wheelchair in as ours is too low for the patient. The patient feels that he is strong enough but this needs to be demonstrated. If the patient is found to be too weak, the Niece states she will support him going to rehab. The patient has no complaints today other than being in the hospital Family History: Unchanged from Admission Social History: Unchanged from Admission Past Medical History: Unchanged from Admission Objective Active Medications: Acetaminophen (Tylenol Tab*) 650 mg PO Q6H PRN PRN Reason: FEVER/PAIN Last Admin: 04/14/19 08:14 Dose: 650 mg Carvedilol (Coreg Tab*) 3.125 mg PO BID [facility] Last Admin: 04/14/19 08:13 Dose: 3.125 mg Dabigatran (Pradaxa Cap(Nf)) 150 mg PO BID [facility] Last Admin: 04/14/19 08:13 Dose: 150 mg Furosemide (Lasix Tab*) 20 mg PO DAILY [facility] Last Admin: 04/14/19 08:13 Dose: 20 mg Magnesium Oxide (Magox 400 Tab*) 400 mg PO BID [facility] Last Admin: 04/14/19 08:14 Dose: 400 mg Nystatin (Nystatin Top Powder*) 1 applic TOPICAL TID [facility] Last Admin: 04/14/19 08:14 Dose: 1 applic Trimethoprim/Sulfamethoxazole (Bactrim Ds 800/160 Tab*) 1 tab PO BID [facility] Last Admin: 04/14/19 08:13 Dose: 1 tab Vital Signs - 8 hr 04/14/19 04/14/19 04/14/19 07:18 08:00 11:23 Temperature 97.0 F 97.2 F Pulse Rate 80 86 Respiratory 18 18 18 Rate Blood Pressure 90/57 91/78 (mmHg) O2 Sat by Pulse 99 99 100 Oximetry Oxygen Devices in Use Now: None Appearance: morbidly obese male sittig up in bed in NAD, A+O x3 Eyes: No Scleral Icterus, PERRLA Ears/Nose/Mouth/Throat: NL Teeth, Lips, Gums, Mucous Membranes Moist Respiratory: Symmetrical Chest Expansion and Respiratory Effort, Clear to Auscultation Cardiovascular: NL Sounds; No Murmurs; No JVD, RRR Abdominal: - - obese, soft, nontender Skin: - - peripheral vascular changes; 2-3+ edema vs lymphedema. Scaly dark skin on LEs. B/l legs have superfical wounds that have CD+I dressings. Neurological: Alert and Oriented x 3 Lines/Tubes/Other Access: Clean, Dry and Intact Peripheral IV Nutrition: Taking PO's Result Diagrams: 04/14/19 06:09 04/14/19 06:09 Microbiology and Other Data: Microbiology 04/06/19 11:21 Gram Stain - Final Leg Left Wound Culture - Preliminary Stenotrophomas Maltophilia Staphylococcus Aureus 04/04/19 23:31 Aerobic Blood Culture - Preliminary Blood Venous No Growth Day 2 Anaerobic Blood Culture - Preliminary No Growth Day 2 04/04/19 23:31 Aerobic Blood Culture - Preliminary Blood Venous No Growth Day 2 Anaerobic Blood Culture - Preliminary No Growth Day 2 04/05/19 10:00 Nasal Screen MRSA (PCR) - Final Nasal Mrsa Not Detected Assess/Plan/Problems-Billing Assessment: Mr. Barfield is a 68 yo M with a PMH of chronic systolic HF with EF 20% with biventricular pacer for sick sinus syndrome, CVA, Chronic afib on Pradaxa who is essentially wheelchair bound and was admitted 04/05 after a fall with severe sepsis, hyponatremia and ERIS - Patient Problems (1) Severe sepsis Comment: - Resolved. Leukocytosis resolved, remains afebrile - Suspected secondary to venous stasis ulcers - Changed to Bactrim based on sensitivities (2) Cholelithiases Comment: - No inflammatory change of biliary obstruction noted. - Asymptomatic - Follow up as outpatient (3) Compliance poor Comment: - Pt now agrees to comply with PT - Andrea consulted and does not believe patient has capacity to make his own medical decisions - see note above in HPI - PT reports he would benefit from rehab ideally, but would also benefit from more help at home - Niece willing to assume responsibility for patient's medical decisions so that he can go home and not go to rehab facility. (4) Hyponatremia Comment: - Very borderline low. - Cont to monitor (5) Wound of lower extremity Comment: - Wound on bilateral LE - No purulent drainage today. More granulated tissue - Will need home nursing for wound care if he goes home - Cont dressing changes (6) ERIS (acute kidney injury) Comment: - Resolved after hydration. (7) Chronic systolic (congestive) heart failure Comment: - No evidence of fluid overload - Carvediolol restarted at lower dose on 04/09 - Resumed HCTZ 04/11 at lower dose. Consider increasing and resuming Aldactone (8) MARINO (obstructive sleep apnea) Comment: - Pt is non-compliant with CPAP. (9) Afib Comment: - S/p pacemaker, continue coreg & pradaxa. (10) DNR (do not resuscitate) Comment: (11) DVT prophylaxis Comment: - pradaxa Status and Disposition: inpatient. subacute vs home.
--- NOTE | 2019-04-14 16:07 | PN ---
<Chivo MurrayJosey A - Last Filed: 04/14/19 16:09> Subjective Date of Service: 04/14/19 Interval History: Mr. Padilla is a 68 yo male with PMH significant for severe systolic CHF (EF 20-25%), CVA, Afib, morbid obesity, HTN, sick sinus syndrome s/p pacemaker placement, MARINO, chronic venous stasis, and mostly wheelchair bound due to a spinal injury; who slipped and fell at home and was unable to get up. He presented to the emergency room for evaluation. He was admitted to the hospital with open areas to his bilateral LEs. Patient seen and examined at bedside. Denies fever or chills. Reports that he is trying to keep his legs elevated, continues to have clear to yellow drainage from bilateral LEs. Family History: Unchanged from Admission Social History: Unchanged from Admission Past Medical History: Unchanged from Admission Objective Active Medications: Acetaminophen (Tylenol Tab*) 650 mg PO Q6H PRN Reason: FEVER/PAIN Carvedilol (Coreg Tab*) 3.125 mg PO BID [facility] Dabigatran (Pradaxa Cap(Nf)) 150 mg PO BID [facility] Furosemide (Lasix Tab*) 20 mg PO DAILY [facility] Magnesium Oxide (Magox 400 Tab*) 400 mg PO BID [facility] Nystatin (Nystatin Top Powder*) 1 applic TOPICAL TID [facility] Trimethoprim/Sulfamethoxazole (Bactrim Ds 800/160 Tab*) 1 tab PO BID [facility] Vital Signs - 8 hr 04/14/19 11:23 Temperature 97.2 F Pulse Rate 86 Respiratory 18 Rate Blood Pressure 91/78 (mmHg) O2 Sat by Pulse 100 Oximetry Oxygen Devices in Use Now: None Appearance: NAD, laying in bed Ears/Nose/Mouth/Throat: Mucous Membranes Moist Respiratory: Symmetrical Chest Expansion and Respiratory Effort Extremities: - - Bilateral LE lymphedema Skin: - - See skin note below Neurological: Alert and Oriented x 3 Nutrition: Taking PO's Result Diagrams: 04/14/19 06:09 04/14/19 06:09 Microbiology and Other Data: Microbiology 04/06/19 11:21 Gram Stain - Final Leg Left Wound Culture - Preliminary Stenotrophomas Maltophilia Staphylococcus Aureus 04/04/19 23:31 Aerobic Blood Culture - Preliminary Blood Venous No Growth Day 2 Anaerobic Blood Culture - Preliminary No Growth Day 2 04/04/19 23:31 Aerobic Blood Culture - Preliminary Blood Venous No Growth Day 2 Anaerobic Blood Culture - Preliminary No Growth Day 2 04/05/19 10:00 Nasal Screen MRSA (PCR) - Final Nasal Mrsa Not Detected Skin Deviation Note - Skin Deviation Findings Left lateral lower leg - Left posterior lower leg - Right lateral lower leg - Assessment/Plan: Mr. Padilla is a 68 yo male with PMH significant for severe systolic CHF (EF 20-25%), CVA, Afib, morbid obesity, HTN, sick sinus syndrome s/p pacemaker placement, MARINO, chronic venous stasis, and mostly wheelchair bound due to a spinal injury; who slipped and fell at home and was unable to get up. He presented to the emergency room for evaluation. He was admitted to the hospital with open areas to his bilateral LEs and possible cellulitis. 1. Open areas to bilateral LEs. Suspect these are secondary to venous stasis and edema due to heart failure. Recommend washing the legs with soap and water. Apply calcium alginate, 4x4 gauze, and ABD pads followed by rolled gauze. Change every other day or as needed for soiling. Lotion can be applied to the surrounding skin that his dry and flaky. Consider ABIs and based on that finding a reflux study. Consider referral to the wound center at discharge. Would also benefit from referral to a lymphedema clinic. 2. Morbid Obesity. BMI 49.9. 3. Diet. Heart Healthy diet. 4. Code Status. DNR 5. Disposition. Inpatient. Disposition per primary medicine team TIME SPENT: Time for this wound consultation was 20 minutes and 10 minutes was spent with the patient discussing past medical history; assessing, measuring, and photographing the wounds; removing and reapplying the dressings. Wound Problem/Plan Is Patient a Wound Clinic Patient: No <Martha Roberto - Last Filed: 04/15/19 10:41> Objective Active Medications: Acetaminophen (Tylenol Tab*) 650 mg PO Q6H PRN PRN Reason: FEVER/PAIN Last Admin: 04/15/19 10:28 Dose: 650 mg Carvedilol (Coreg Tab*) 3.125 mg PO BID [facility] Last Admin: 04/15/19 09:03 Dose: 3.125 mg Dabigatran (Pradaxa Cap(Nf)) 150 mg PO BID [facility] Last Admin: 04/15/19 09:03 Dose: 150 mg Furosemide (Lasix Tab*) 20 mg PO DAILY [facility] Last Admin: 04/15/19 09:03 Dose: 20 mg Magnesium Oxide (Magox 400 Tab*) 400 mg PO BID [facility] Last Admin: 04/15/19 09:03 Dose: 400 mg Nystatin (Nystatin Top Powder*) 1 applic TOPICAL TID [facility] Last Admin: 04/15/19 09:04 Dose: 1 applic Trimethoprim/Sulfamethoxazole (Bactrim Ds 800/160 Tab*) 1 tab PO BID [facility] Last Admin: 04/15/19 09:03 Dose: 1 tab Vital Signs - 8 hr 04/15/19 04/15/19 02:46 07:40 Temperature 98.1 F 96.9 F Pulse Rate 71 68 Respiratory 22 20 Rate Blood Pressure 110/64 124/78 (mmHg) O2 Sat by Pulse 98 98 Oximetry Result Diagrams: 04/14/19 06:09 04/14/19 06:09 Microbiology and Other Data: Microbiology 04/04/19 23:31 Aerobic Blood Culture - Final Blood Venous No Growth Day 5 Anaerobic Blood Culture - Final No Growth Day 5 04/04/19 23:31 Aerobic Blood Culture - Final Blood Venous No Growth Day 5 Anaerobic Blood Culture - Final No Growth Day 5 04/06/19 11:21 Gram Stain - Final Leg Left Wound Culture - Final Stenotrophomas Maltophilia Staphylococcus Aureus 04/05/19 10:00 Nasal Screen MRSA (PCR) - Final Nasal Mrsa Not Detected Wound Problem/Plan Assessment: - Patient Problems (1) Severe sepsis Comment: - Resolved. Leukocytosis resolved, remains afebrile - Suspected secondary to venous stasis ulcers - Changed to Bactrim based on sensitivities (2) Cholelithiases Comment: - No inflammatory change of biliary obstruction noted. - Asymptomatic - Follow up as outpatient (3) Compliance poor Comment: - Pt now agrees to comply with PT - Pysch consulted and does not believe patient has capacity to make his own medical decisions - see note above in HPI - Niece willing to assume responsibility for patient's medical decisions so that he can go home and not go to rehab facility. (4) Hyponatremia Comment: - Resumed (5) Wound of lower extremity Comment: - Wound on bilateral LE - No purulent drainage today. More granulated tissue - Appreciate wound nurse eval - Cont dressing changes - Pt agreed to wound care clinic - should be referred on discharge (6) ERIS (acute kidney injury) Comment: - Resolved after hydration. (7) Chronic systolic (congestive) heart failure Comment: - No evidence of fluid overload - Carvediolol restarted at lower dose on 04/09 - Resumed lasix 04/11 at lower dose. Aldactone on hold. - Patient was noted to have some soft BPs - he thinks this is why he fell in the first place. (8) MARINO (obstructive sleep apnea) Comment: - Pt is non-compliant with CPAP. (9) Afib Comment: - S/p pacemaker, continue coreg & pradaxa. (10) DNR (do not resuscitate) Comment: (11) DVT prophylaxis Comment: - pradaxa
[2019-04-15] MEDS: CMCS: Dabigatran CAP(NF) 150 MG CAP PO SCH (09:03)
[2019-04-15] MEDS: Sulfamethox/Trimethoprim DS 800/160* TAB PO SCH (09:03)
[2019-04-15] MEDS: Magnesium Oxide TAB* 400 MG PO SCH (09:03)
[2019-04-15] MEDS: Furosemide TAB* 20 MG PO SCH (09:03)
[2019-04-15] MEDS: Carvedilol TAB* 3.125 MG PO SCH (09:03)
[2019-04-15] MEDS: Nystatin TOP POWDER* 15 GM BTL TOPICAL SCH (09:04)
--- NOTE | 2019-04-15 09:07 | PN ---
Subjective Date of Service: 04/15/19 Interval History: Patient reports he is doing well and has no complaints other than he wants to go home. He refused PT last evening due to not having his own wheelchair which his niece brought last evening. He states he was able to get himself independently to sit up on the side of the bed and has been sitting up all morning as well he transferred himself independently from bed to wheelchair. He agrees to go to the wound clinic so his legs do not get infected; he refused at first but after discussing why Ii thought it was important he agreed. He appears to have better insight. He states he understands what could happen if he doesnt go such as end up back in the hospital. I actually think the patient has some capacity; but again he has low intelligence most likely learning disability. I agree with DC to home Spoke to Niece at length about discharge plan Family History: Unchanged from Admission Social History: Unchanged from Admission Past Medical History: Unchanged from Admission Objective Active Medications: Acetaminophen (Tylenol Tab*) 650 mg PO Q6H PRN PRN Reason: FEVER/PAIN Last Admin: 04/14/19 08:14 Dose: 650 mg Carvedilol (Coreg Tab*) 3.125 mg PO BID [facility] Last Admin: 04/15/19 09:03 Dose: 3.125 mg Dabigatran (Pradaxa Cap(Nf)) 150 mg PO BID [facility] Last Admin: 04/15/19 09:03 Dose: 150 mg Furosemide (Lasix Tab*) 20 mg PO DAILY [facility] Last Admin: 04/15/19 09:03 Dose: 20 mg Magnesium Oxide (Magox 400 Tab*) 400 mg PO BID [facility] Last Admin: 04/15/19 09:03 Dose: 400 mg Nystatin (Nystatin Top Powder*) 1 applic TOPICAL TID [facility] Last Admin: 04/15/19 09:04 Dose: 1 applic Trimethoprim/Sulfamethoxazole (Bactrim Ds 800/160 Tab*) 1 tab PO BID [facility] Last Admin: 04/15/19 09:03 Dose: 1 tab Vital Signs - 8 hr 04/15/19 04/15/19 02:46 07:40 Temperature 98.1 F 96.9 F Pulse Rate 71 68 Respiratory 22 20 Rate Blood Pressure 110/64 124/78 (mmHg) O2 Sat by Pulse 98 98 Oximetry Oxygen Devices in Use Now: None Appearance: morbidly obese male, A+O x3 Eyes: No Scleral Icterus, PERRLA Ears/Nose/Mouth/Throat: - - poor dentition Respiratory: Symmetrical Chest Expansion and Respiratory Effort, Clear to Auscultation Cardiovascular: NL Sounds; No Murmurs; No JVD, RRR Abdominal: - - morbid obese Extremities: - - LE wrapped with CD+I dressings; lymphedema; vascular skin color changes to LEs Neurological: Alert and Oriented x 3 Lines/Tubes/Other Access: Clean, Dry and Intact Peripheral IV Nutrition: Taking PO's Result Diagrams: 04/14/19 06:09 04/14/19 06:09 Microbiology and Other Data: Microbiology 04/06/19 11:21 Gram Stain - Final Leg Left Wound Culture - Preliminary Stenotrophomas Maltophilia Staphylococcus Aureus 04/04/19 23:31 Aerobic Blood Culture - Preliminary Blood Venous No Growth Day 2 Anaerobic Blood Culture - Preliminary No Growth Day 2 04/04/19 23:31 Aerobic Blood Culture - Preliminary Blood Venous No Growth Day 2 Anaerobic Blood Culture - Preliminary No Growth Day 2 04/05/19 10:00 Nasal Screen MRSA (PCR) - Final Nasal Mrsa Not Detected Assess/Plan/Problems-Billing Assessment: Mr. Barfield is a 68 yo M with a PMH of chronic systolic HF with EF 20% with biventricular pacer for sick sinus syndrome, CVA, Chronic afib on Pradaxa who is essentially wheelchair bound and was admitted 04/05 after a fall with severe sepsis, hyponatremia and ERIS - Patient Problems (1) Severe sepsis Comment: - Resolved. Leukocytosis resolved, remains afebrile - Suspected secondary to venous stasis ulcers - Changed to Bactrim based on sensitivities (2) Cholelithiases Comment: - No inflammatory change of biliary obstruction noted. - Asymptomatic - Follow up as outpatient (3) Compliance poor Comment: - Pt now agrees to comply with PT - Pysch consulted and does not believe patient has capacity to make his own medical decisions - see note above in HPI - Niece willing to assume responsibility for patient's medical decisions so that he can go home and not go to rehab facility. (4) Hyponatremia Comment: - Resumed (5) Wound of lower extremity Comment: - Wound on bilateral LE - No purulent drainage today. More granulated tissue - Appreciate wound nurse eval - Cont dressing changes Per wound nurse: Open areas to bilateral LEs. Suspect these are secondary to venous stasis and edema due to heart failure. Recommend washing the legs with soap and water. Apply calcium alginate, 4x4 gauze, and ABD pads followed by rolled gauze. Change every other day or as needed for soiling. Lotion can be applied to the surrounding skin that his dry and flaky. Consider ABIs and based on that finding a reflux study. Consider referral to the wound center at discharge. Would also benefit from referral to a lymphedema clinic. - Pt agreed to wound care clinic - will be referred on discharge (6) ERIS (acute kidney injury) Comment: - Resolved after hydration. (7) Chronic systolic (congestive) heart failure Comment: - No evidence of fluid overload - Carvediolol restarted at lower dose on 04/09 - Resumed lasix 04/11 at lower dose. Aldactone restarted once a day (home dose BID) (8) MARINO (obstructive sleep apnea) Comment: - Pt is non-compliant with CPAP. (9) Afib Comment: - S/p pacemaker, continue coreg & pradaxa. (10) DNR (do not resuscitate) Comment: (11) DVT prophylaxis Comment: - pradaxa Status and Disposition: inpatient. Plan for DC to home today .
[2019-04-15] MEDS: Acetaminophen TAB* 325 MG PO PRN (10:28)
[2019-04-15 11:58] VITALS: BP 103/77
--- NOTE | 2019-04-15 21:34 | DS ---
CC: Dr. Restrepo* DISCHARGE SUMMARY: DATE OF ADMISSION: 04/05/19 DATE OF DISCHARGE: 04/15/19 PROVIDER: Jose Elias Stewart NP ATTENDING PHYSICIAN: Dr. Swann* (report dictated by Jose Elias Stewart NP). PRIMARY CARE PROVIDER: Dr. Restrepo, [facility]. DISCHARGE DIAGNOSES: 1. Septic shock, thought to be secondary to lower extremity cellulitis and lower extremity wounds. 2. Acute renal failure. 3. Bilateral lymphedema. 4. Systolic congestive heart failure with an EF of 20% to 25%. 5. Cholelithiasis without signs of acute inflammatory change or biliary obstruction. SECONDARY DIAGNOSES: 1. Chronic atrial fibrillation, on Pradaxa. 2. Morbid obesity with a BMI of 49. 3. Hypertension. 4. Sick sinus syndrome, status post biventricular pacemaker. 5. Hypertension. 6. Obstructive sleep apnea. 7. Venous stasis. 8. Spinal cord injuries, status post now essentially wheelchair-bound, but can pivot from bed to wheelchair or wheelchair to commode. 9. Cerebrovascular accident with MCA in 2011 from atrial fibrillation and left atrial appendage clot. DISCHARGE MEDICATIONS: 1. Pradaxa 150 mg p.o. b.i.d. 2. Bactrim 1 tab p.o. b.i.d. x5 days. 3. Spironolactone 25 mg p.o. daily (please note this was decreased from 25 mg b.i.d.). 4. Magnesium oxide 400 mg p.o. b.i.d. 5. Lasix 20 mg p.o. daily (please note this was decreased from 40 mg p.o. daily ). 6. Coreg 3.125 mg p.o. b.i.d. (decreased from 6.25 mg p.o. b.i.d.). HISTORY OF PRESENT ILLNESS AND HOSPITAL COURSE: Please see history and physical by Dr. Justin Lynn for full admission details, but in summary, this is a 68-year-old male who lives at [facility] with severe systolic congestive heart failure with an EF of 20% to 25%, morbid obesity, lymphedema with chronic venous stasis wounds, pretty much wheelchair-bound, but can take a few steps, who reported he had the flu last week, not confirmed by testing, but felt sick and fatigued and had reduced p.o. intake, but denied fevers, headache, or muscle aches. He reported the morning of admission, he was standing in his kitchen when he slipped on some water and fell, unable to get up for the next 4 to 5 hours. He also reported that his wheelchair was malfunctioning and is waiting for a new wheelchair to be delivered and has not been sleeping well as of a result. In the emergency department at [facility], he was found to be hypotensive with a blood pressure of 80/63, a leukocytosis of 25.6, lactic acidosis of 2.8, acute kidney injury with a creatinine of 2.52 up from a baseline of 0.6, CRP of 93 and a sodium of 120. He was empirically started on vancomycin and Zosyn. Due to his bilirubin being elevated at 2.2, he underwent a CT abdomen and pelvis, which showed mildly distended gallbladder with gallstones and sludge and a nonobstructing left renal stone with no hydronephrosis. He had colonic diverticulosis with no evidence of acute diverticulitis. He was admitted to the intensive care unit for septic shock with acute kidney injury and severe hyponatremia. Blood cultures returned negative for no growth. Urine had low suspicion for infection. Chest x-ray was negative for pneumonia. He did undergo a gallbladder ultrasound, which showed cholelithiasis without signs of acute inflammatory change or biliary obstruction. The patient was followed by the wildlife biologist who really felt that most likely the septic shock was secondary to his lower extremity wounds. The patient was treated with a bicarb drip. The patient was discharged out of the ICU on 04/08/19 to the medical floor. His wound cultures did grow Staphylococcus aureus and Stenotrophomonas maltophilia. The patient was seen by Wound ESTATE ADMINISTRATOR, Josey Andino, who has been following the patient intermittently throughout hospitalization. It is recommended the patient go to the wound clinic for wound care, and once the legs are healed, be referred to the lymphedema clinic to prevent further wounds from forming. It was also recommended he undergo ankle brachial indices as this has not been done before in the past. The patient has significant venous stasis in his lower extremities as well as lymphedema. The patient did undergo a consult by Dr. Saw Aguilar, psychiatrist. It was a consult for medical decision-making capacity in which he did not feel the patient had capacity to make his own decisions. Per the niece who is the healthcare proxy, she states the patient does do very well in his apartment at [facility]. He has shown poor insight throughout his hospitalization, but especially over the last couple of days that I have cared for this patient, he has been able to have insight in his care plan such as the importance of going to the wound care clinic in which initially he refused and now through our talking and educating the patient, he states understanding and will go to the wound clinic. The patient is simple with possible learning disability; however , I do think the patient was functioning prior in his apartment and unfortunately did slip and fall in the setting of an illness and think the patient does deserve a trial in going back home to see how he does. He has been able to demonstrate that he is strong enough to transfer himself from his bed independently into his wheelchair. Per the niece, she states she will take all responsibility for the patient going back home and does not think he will do well in an assisted living. Physical Therapy has worked with the patient and unfortunately, the patient has consistently refused to work with Physical Therapy. Today, the patient was witnessed to independently transfer himself. Again, I think the patient will be successful at going home; however, the concerns were discussed with the niece at length and the patient should be set up with an alert button he could wear around his neck. As well, the patient's new wheelchair is arriving tomorrow. He is currently using a second wheelchair he has at home, which works well for the patient, but is not ideal. In regards to the patient's acute renal failure, this resolved as well as his hyponatremia. He was noted to have a low magnesium consistently throughout hospitalization and has been sent home on magnesium supplementation. In regards to noted soft blood pressures, his Coreg was decreased from 6.25 twice a day to 3.125 p.o. twice a day as well as his Lasix was cut in half as well as his spironolactone. Blood pressure is running between low 100s to 110. The patient denies dizziness, chest pain, shortness of breath. The patient underwent a transthoracic echocardiogram showing "Left ventricle: The cavity size is normal. Wall thickness is mildly increased. Systolic function is moderately reduced. The estimated ejection fraction is 30% to 35%. Moderate hypokinesis. Right ventricle: Pacer wire noted in the right ventricle. Systolic function is mildly reduced. Ventricular septum: There is abnormal interventricular septum wall motion consistent with RV pacemaker. Mitral valve: There is no significant regurgitation. Aortic valve: There is no evidence of stenosis. There is no significant regurgitation. Tricuspid valve: Not well visualized. Pericardium: There is no pericardial effusion. Impression: Compared to study of 03/29/17, the LV function is slightly better. " DISCHARGE PLAN: 1. The patient is stable for discharge to home. The niece again was spoken to at length about the discharge plan. She states that she sets up the patient's pill box. Medications were reviewed with her at length. She does state that he takes his medications everyday as well as he does get himself on the [employer] and to the appointments independently. 2. Follow up with Dr. Restrepo this 04/17/19 at 11:10 a.m. 3. The patient has been referred to [facility] for wound healing. The niece was instructed she needs to call for an appointment. 4. Visiting nurse service has been set up for the patient. 5. Wound care dressing recommendations have been placed on the discharge paperwork for visiting nurse service as well. These were reviewed with the niece at length. TIME SPENT: Approximately 70 minutes was spent on this discharge with greater than 50% of time spent at the bedside. JOSE ELIAS STEWART NP [id number]/[facility] #: [id number] MONI
== END 2019-04-15 13:15 | disposition home health service (06) | DRG 871 ==
LOC: ED 22:27 → ICU 04-05 03:25 → MED 04-07 14:12
PROVIDERS: ADMIT Internal Medicine; ATTEND Student in an Organized Health Care Education/Training Program
DX: A41.9 Sepsis, unspecified organism (principal); R65.21 Severe sepsis with septic shock; I50.22 Chronic systolic (congestive) heart failure; L03.116 Cellulitis of left lower limb; L03.115 Cellulitis of right lower limb; N17.9 Acute kidney failure, unspecified; E87.2 Acidosis; E87.1 Hypo-osmolality and hyponatremia; I48.2 Chronic atrial fibrillation; E66.01 Morbid (severe) obesity due to excess calories; I49.5 Sick sinus syndrome; G47.33 Obstructive sleep apnea (adult) (pediatric); I87.8 Other specified disorders of veins; W01.0XXA Fall on same level from slipping, tripping and stumbling without subsequent striking against object, initial encounter; I89.0 Lymphedema, not elsewhere classified; K57.30 Diverticulosis of large intestine without perforation or abscess without bleeding; I11.0 Hypertensive heart disease with heart failure; G89.29 Other chronic pain; M16.0 Bilateral primary osteoarthritis of hip; M47.9 Spondylosis, unspecified; M81.0 Age-related osteoporosis without current pathological fracture; N20.0 Calculus of kidney; Z66 Do not resuscitate; H91.90 Unspecified hearing loss, unspecified ear; F17.210 Nicotine dependence, cigarettes, uncomplicated; E86.0 Dehydration; F43.20 Adjustment disorder, unspecified; R41.9 Unspecified symptoms and signs involving cognitive functions and awareness; S81.802A Unspecified open wound, left lower leg, initial encounter; S81.801A Unspecified open wound, right lower leg, initial encounter; E87.5 Hyperkalemia; K80.20 Calculus of gallbladder without cholecystitis without obstruction; E83.42 Hypomagnesemia; Z86.73 Personal history of transient ischemic attack (TIA), and cerebral infarction without residual deficits; Y92.009 Unspecified place in unspecified non-institutional (private) residence as the place of occurrence of the external cause; Z68.42 Body mass index [BMI] 45.0-49.9, adult; Z82.49 Family history of ischemic heart disease and other diseases of the circulatory system; Z98.1 Arthrodesis status; Z95.0 Presence of cardiac pacemaker; Z79.01 Long term (current) use of anticoagulants; Z99.3 Dependence on wheelchair
CPT/HCPCS: 36415; 70450; 71045; 72125; 72170; 74176; 76705; 80048; 80053; 80076; 80202; 81003; 81015; 82533; 82550; 82565; 82570; 83605; 83735; 83880; 83935; 84100; 84300; 84443; 84484; 84520; 84540; 84550; 85025; 85027; 85610; 85730; 86140; 86850; 86900; 86901; 87040; 87070; 87077; 87185; 87186; 87205; 87641; 90715; 93005; 93306; 99285; A9270-GY; C8929; G8978-GP-CN; G8979-GP-CJ; J0610; J2270; J2405; J2543; J3370; J3475